=== PATIENT | male | born 1945 | race Caucasian/White ===

== ENCOUNTER 2021-09-09 15:53 | Outpatient (CLI) | payer MEDICARE, SELFPAY ==
[2021-09-09 12:28] LABS: Albumin* 4.1 g/dL (3.3-5.0); Chloride* 103 mmol/L (96-114)
[2021-09-09 12:29] LABS: Potassium* 4.7 mmol/L (3.6-5.1); Sodium* 138 mmol/L (135-149)
[2021-09-09 12:31] LABS: Aspartate Amino Transferase* 20 U/L (12-35); Bilirubin Total* 0.4 mg/dL (0.1-1.5); Blood Urea Nitrogen* 18 mg/dL (7-30); Carbon Dioxide* 29 mmol/L (20-32); Cholesterol* 198 mg/dL (90-199); Creatinine* 0.8 mg/dL (0.5-1.5); Estimated Glomerular Filt Rate 93 ml/min; Glucose* 112 mg/dL (60-115); Total Protein* 6.9 g/dL (6.0-8.3)
[2021-09-09 12:32] LABS: Alanine Aminotransferase* 22 U/L (4-50); Alkaline Phosphatase* 64 U/L (40-150); Calcium* 9.6 mg/dL (8.4-10.6); HDL Cholesterol* 62 mg/dL (>=40); LDL Cholesterol Calculated 117 mg/dL (<100); Triglycerides* 95 mg/dL (40-149)
[2021-09-09 13:00] LABS: PSA Screen* 0.68 ng/mL (0.10-4.00)
== END 2021-09-09 15:54 | disposition home or self-care (01) ==
PROVIDERS: PCP Family Medicine; Visit Provider Family Medicine
DX: Z00.00 Encounter for general adult medical examination without abnormal findings (principal)
CPT/HCPCS: 80053; 80061; 84153

== ENCOUNTER 2022-09-20 09:33 | Outpatient (CLI) | payer MEDICARE, SELFPAY | END 2022-09-20 09:34 | disposition home or self-care (01) | PROVIDERS: PCP Physician Assistant Medical; Visit Provider Physician Assistant Medical | DX: Z01.818 Encounter for other preprocedural examination (principal); E78.5 Hyperlipidemia, unspecified; N39.0 Urinary tract infection, site not specified; Z12.5 Encounter for screening for malignant neoplasm of prostate | CPT/HCPCS: 80053; 80061; 84153; 87086; 87186 ==

== ENCOUNTER 2022-09-26 06:08 | Day surgery (SDC) | payer MEDICARE, SELFPAY ==
[2022-09-26] VITALS (26 sets, daily range): BP systolic 82–135; BP diastolic 53–90; PULSE 60–96; RESP 12–18; TEMP 35.1–36.5; O2SAT 92–96; BMI 36.6
[2022-09-26] MEDS: SODIUM CHLORIDE 0.9 % (FLUSH) 10 ML SYRINGE IVF (07:00)
[2022-09-26] MEDS: ACETAMINOPHEN 500 MG TABLET 1000 MG PO ×3 (07:00→19:30)
[2022-09-26] MEDS: CELECOXIB 200 MG CAPSULE PO (07:00)
[2022-09-26] MEDS: OXYCODONE (CR) 10 MG TAB.ER.12H PO (07:00)
[2022-09-26] MEDS: LACTATED RINGERS 1000 ML 1,000 ML 100 ML IV (07:00)
[2022-09-26] MEDS: MIDAZOLAM HCL 1 MG/ML inj IVP (07:20)
[2022-09-26] MEDS: fentaNYL 100 MCG/2 ML inj IVP (07:20)
--- NOTE | 2022-09-26 07:38 | SUR.PREOP ---
TIME?OUT:?0718 PT/RN/RESIDENTIAL LIVING ASSISTANT?VERIFICATION?OF?SURGICAL?SITE,?PROCEDURE,?AND?CONSENT OBTAINED?PRIOR?TO?INVASIVE?PROCEDURE.
[2022-09-26] MEDS: CEFAZOLIN 2 GM INJ IVP (07:52)
[2022-09-26] MEDS: TRANEXAMIC ACID 100 MG/ML INJ 1000 MG IV (07:53)
--- NOTE | 2022-09-26 09:20 | CRLHL7_ITS ---
For Patients: As a result of the Cures Act, medical imaging exams and procedure reports are released immediately into your electronic medical record. You may view this report before your referring provider. If you have questions, please contact your health care provider. Indication: POSTOP TKA Technique: Two views left knee Findings/Impression: Hardware from a left total knee arthroplasty is in satisfactory position. Bone alignment is normal. No sign of acute fracture. Postop changes are within normal limits. Dictated by Kenney Mccall MD @ 09/26/2022 10:10:44 AM (Electronically Signed)
--- NOTE | 2022-09-26 09:22 | P.ORPRC_ITS ---
Procedure Note Date of procedure: 09/26/22 Procedure: PREOPERATIVE DIAGNOSIS: Left knee osteoarthritis POSTOPERATIVE DIAGNOSIS: Left knee osteoarthritis NAME OF OPERATION: Left total knee arthroplasty SURGEON: Abdiel Dawson MD SALES AND MARKETING DIRECTOR: OVI Gonzalez ANESTHESIA: Spinal ESTIMATED BLOOD LOSS: 0 mL COMPLICATIONS: None SPECIMENS: None DRAINS: None PREOPERATIVE ANTIBIOTICS: Ancef 2 grams IMPLANTS: 1. J&J Attune # 8 posterior stabilized femur 2. # 7 fixed-bearing tibia with a 14 mm x 50 mm cemented stem 3. # 8 posterior stabilized, 7 mm fixed-bearing polyethylene 4. 41 patella INDICATIONS: The patient is a 77-year-old with a longstanding history of severe, unrelenting left knee pain secondary to end-stage (grade IV) left knee osteoarthritis. Despite appropriate nonoperative management, including activity modification, anti-inflammatories, [id number] pain medication, bracing, physical therapy, and injections they continue to have pain and disability. Operative intervention was offered. The risks, benefits and expected outcomes were discussed in detail. These incl uded but were not limited to: Infection, bleeding, injury to blood vessel or nerve, venous thromboembolism. All questions were answered to their satisfaction. Use of an speech language pathology assistant was necessary throughout the case for patient positioning and safety, soft tissue retraction, and closure. PROCEDURE: Spinal anesthesia was administered. The patient was placed supine on the operating table. The speech language pathology assistant made sure the patient was positioned appropriately. The lower extremity was prepped and draped in the usual sterile fashion. The limb was exsanguinated with the Brando bandage. The pneumatic tourniquet was inflated to 300 mmHg. A standard anterior incision was made with the knee in flexion. Subcutaneous dissection was sharply taken through fascial layer #1. Full-thickness medial and lateral flaps were elevated. The speech language pathology assistant retracted the soft tissues and protected them throughout the case. A standard medial parapatellar approach was made. The patella was everted. The infrapatellar fat pad was preserved. The menisci and cruciate ligaments were sharply d?brided. Marginal osteophytes were d?brided with the rongeur. The drill was used to penetrate the femoral canal. The canal was aspirated and irrigated with pulse lavage. The intramedullary femoral guide was placed for a 5-degree valgus cut, removing 12 mm off the distal femur. The saw was used to make the cut. Whitesides line and the trans epicondylar axis were marked. The femoral sizing guide was pinned onto the distal femur. Three degrees of external rotation nicely parallels the transepicondylar axis. Pins were placed for posterior referencing. The four-in-one cutting guide was pinned onto the distal femur. The anterior, posterior, and chamfer cuts were made. The speech language pathology assistant protected the collateral ligaments. The box cutting guide was pinned. The box cuts were made. The boxed trial was placed and was an excellent fit. Drill holes for the lugs were made. Attention was then turned to the proximal tibia. The extramedullary tibial guide was placed for a neutral varus/valgus cut with 5 degrees of posterior slope, removing 2 mm based off the medial tibial surface. The speech language pathology assistant protected the collateral ligaments and the neurovascular bundle. The saw was used to make the cut. Trial components were placed. The knee was nicely balanced in both flexion and extension. The trial components were removed. The tray was placed in appropriate rotation, parallel to our tibial cutting pins. It was pinned by the speech language pathology assistant and the drill and the punch were used. The tray was removed. The punch was used again. We placed a bone plug in the femoral canal. Attention was then turned to the patella. [place] patellar thickness was 25 mm. The lobster claw resection guide was used with the 9.5 mm gabriel. The saw was used to make the cut. Drill holes were made by the speech language pathology assistant. The trial was placed and was an excellent fit. Cancellous surfaces were irrigated with pulse lavage and thoroughly dried by the speech language pathology assistant. We cemented the tibial component, then the femoral component. We impacted the 7 mm polyethylene onto the tibial tray. The knee was brought into full extension. We then cemented the patellar component. Excessive cement was removed. The cement was allowed to harden. The knee was taken through a range of motion and was found to be nicely balanced in both flexion and extension. The patella tracks centrally. The speech language pathology assistant did a three minute dilute Betadine solution soak. The speech language pathology assistant irrigated the wound with 3 liters of normal saline via pulse lavage. The speech language pathology assistant reapproximated the extensor mechanism with #1 Vicryl in an interrupted [id number] fashion. The speech language pathology assistant then ran the extensor mechanism with a #1 PDO Stratafix. The speech language pathology assistant closed the subcutaneous tissues with a 3-0 Stratafix and the skin with a running 3-0 Stratafix in a subcuticular fashion. Glue was used to seal the skin. The speech language pathology assistant placed a dry dressing, MELA stocking, and Polar Care. Sponge and needle counts were correct x2. The patient tolerated the procedure well. There were no apparent complications. They were carefully transferred to the hospital bed and taken to the postanesthesia care unit in satisfactory condition. PLAN: The patient will be mobilized with physical therapy. Aspirin will be used for DVT prophylaxis. They will be discharged to home once medically appropriate.
--- NOTE | 2022-09-26 10:08 | W.ANESCHARGE ---
Anesthesia Charges Start Date/Time Anesthesia Start Date: 09/26/22 Anesthesia Start Time: 07:40 Stop Date/Time Anesthesia Stop Date: 09/26/22 Anesthesia Stop Time: 09:55
--- NOTE | 2022-09-26 10:29 | PC.NURSE ---
CATARINA Frank notified. Monika approved discharge from PACU with patient being asymptomatic and having low blood pressures. Meets protocol for discharge.
--- NOTE | 2022-09-26 10:41 | SUR.PHASEI ---
Reported to MESH WORKER to continue to have patient flat due to lower blood pressures that was recommended by Anesthesia. RN stated understanding.
[2022-09-26] MEDS: LACTATED RINGERS 1000 ML 1,000 ML 75 ML IV (10:52)
--- NOTE | 2022-09-26 11:08 | P.IMCN_ITS ---
Date of Consult Patient: [facility] Patient Consult date: 09/26/22 Primary Care Provider: Chester Schumacher PA-C Consult Narrative Reason for consult: Medical management of comorbidities Narrative: Rodri Kirkland is a 77 year old male who presented to the hospital today for an elective L TKA with Dr. Dawson. There were no surgical or anesthetic complications noted during procedure. Patient's H&P reviewed, PCP is Chester Schumacher. Gene had been fishing in [place] just prior to his preoperative visit Past medical history significant for: bladder cancer, hyperlipidemia, recurrent UTIs. History of blood clots: No. History of blood transfusions: No. Postoperative plan: Home with . This is his third total joint. Former smoker, social ETOH without any history of withdrawal. Review of Systems Status of ROS: Reports: 10 or more systems reviewed and unremarkable except as noted in History and below [facility] Medical History (Updated 09/26/22 @ 11:22 by Libby Salamanca MD) Urinary tract infection ?N39.0 - Urinary tract infection, site not specified (ICD-10) History of osteomyelitis ?Z87.39 - Personal history of other diseases of the musculoskeletal system and connective tissue (ICD-10) History of malignant neoplasm of bladder ?Z85.51 - Personal history of malignant neoplasm of bladder (ICD-10) Surgical History (Updated 09/26/22 @ 11:22 by Libby Salamanca MD) 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) ?Z96.651 - Presence of right artificial knee joint (ICD-10) History of total left hip replacement (~03/2006) ?Z96.642 - Presence of left artificial hip joint (ICD-10) History of bladder surgery (~2003) ?Z98.890 - Other specified postprocedural states (ICD-10) Family History (Updated 09/12/22 @ 13:25 by Christina Michel RN) Father Cardiovascular disease Mother High blood pressure Diabetes Hypothyroidism Sister Deep vein thrombosis Social History (Reviewed 07/19/22 @ 10:40 by Keily Curtis ~ [facility], [facility]) Narrative: does not use illicit drugs former smoker occasional alcohol consumption Highest level of school completed/degree received: some college, no degree Smoking Status: Former smoker Do you use any of these nicotine containing products: None Second hand tobacco smoke exposure: No How often do you have a drink containing alcohol: 4 or more times a week Alcohol type: beer, wine and hard liquor How many standard drinks containing alcohol do you have on a typical day: 1 or 2 How often do you have six or more drinks on one occasion: Less than monthly AUDIT-C Alcohol total score: 5 Non-prescribed substance use: denies use Caffeine: Yes (coffee, 6 cups/day) Little interest or pleasure in doing things: not at all Feeling down, depressed, or hopeless: not at all service: Yes Meds Home Medications and Allergies Home Medications Medication Instructions Recorded Confirmed Type amoxicillin 500 mg capsule 2,000 mg PO ONCE PRN 09/12/21 09/26/22 History aspirin 81 mg chewable tablet 81 mg PO DAILY 09/12/21 09/26/22 History calcium carbonate 600 mg-vitamin 1 tab PO DAILY 09/12/21 09/26/22 History D3 10 mcg (400 unit) chewable tablet (Calcium 600 with Vitamin D3) cranberry 500 mg capsule 500 mg PO BID 09/12/21 09/26/22 History multivitamin 1 tab PO QAM 09/12/21 09/26/22 History sildenafil 100 mg tablet 100 mg PO DAILY PRN 09/12/21 09/26/22 History turmeric 400 mg capsule 400 mg PO DAILY 07/19/22 09/26/22 History simvastatin 20 mg tablet 20 mg PO HS 09/26/22 09/26/22 History Allergies Allergy/AdvReac Type Severity Reaction Status Date / Time No Known Drug Allergies Allergy Verified 09/26/22 06:27 Exam Narrative: Exam Narrative: GEN: Alert and laying comfortably in bed, nontoxic HEENT: EOMIs bilaterally, no scleral icterus CV: RRR, No concerning murmurs R: LCTA bilaterally without concerning wheezing, air movement adequate Ext: wwp, no concerning edema Skin: No concerning skin lesions or rashes on exposed skin Neuro: Nonfocal Psych: Appropriate Const: Vital Signs, click to edit/add: Vital Signs - 24 hr 09/26/22 06:51 09/26/22 07:20 09/26/22 07:25 Temperature 97.7 F Pulse Rate 79 77 73 Respiratory Rate 16 16 16 Blood Pressure 119/80 135/81 112/90 H Pulse Oximetry 93 95 93 Oxygen Delivery Me thod Room Air Nasal Cannula Nasal Cannula Oxygen Flow Rate 3 3 09/26/22 07:30 09/26/22 07:35 09/26/22 09:51 Temperature 97.1 F L Pulse Rate 66 68 71 Respiratory Rate 16 16 16 Blood Pressure 105/81 106/81 88/58 L Pulse Oximetry 93 94 93 Oxygen Delivery Me thod Nasal Cannula Nasal Cannula Room Air Oxygen Flow Rate 3 3 09/26/22 09:55 09/26/22 10:00 09/26/22 10:05 Temperature Pulse Rate 68 67 68 Respiratory Rate 16 16 16 Blood Pressure 96/55 L 96/59 L 95/53 L Pulse Oximetry 92 94 93 Oxygen Delivery Me thod Room Air Oxygen Flow Rate 09/26/22 10:10 09/26/22 10:15 09/26/22 10:20 Temperature 97 F L Pulse Rate 69 60 60 Respiratory Rate 16 12 12 Blood Pressure 90/62 91/57 L 82/56 L Pulse Oximetry 92 96 95 Oxygen Delivery Me thod Oxygen Flow Rate 09/26/22 10:25 Temperature 97 F L Pulse Rate 64 Respiratory Rate 12 Blood Pressure 95/67 Pulse Oximetry 93 Oxygen Delivery Me thod Room Air Oxygen Flow Rate Assessment and Plan Assessment and plan (1) Status post left knee replacement: Problem comment: - Dr. Dawson, 09/26 Status: Acute (2) History of malignant neoplasm of bladder: Problem comment: - quiescent, no longer follows with urology as an outpatient Status: Acute (3) Hyperlipidemia: Status: Acute (4) Urinary tract infection: Problem comment: - noted during preoperative visit, cx + for Enterococcus - on Cipro with f/u UA ordered by PCP Status: Acute Plan - pain management and prophylaxis per orthopedic surgery team - continue home medications for comorbidities - anticipate routine postoperative course
[2022-09-26] MEDS: CEFAZOLIN 2 GM in 0.9 % SODIUM CHLORIDE Mini-bag 100 ML IVPB ×2 (14:01→21:45)
--- NOTE | 2022-09-26 14:56 | PC.NURSE ---
End of shift... Arrived to the floor at 1035 this AM. Very pleasant gentleman. Slightly hypotensive upon arrival per him and his his BP's are usually soft. LTK dressing CDI no drainage present with minor swelling, cyrocuff to knee. B TEDs on and plexipulses. He got up with OT and did well. Feeling has returned, he reports it as uncomfortable, not really painful. Scheduled tylenol and ABX given. LR running at 75/hr. Tolerating food and fluids with no nausea. He has not voided yet. VS on RA. Will call appropriately.
[2022-09-26] MEDS: CIPROFLOXACIN 500 MG TABLET PO (21:44)
[2022-09-26] MEDS: ASPIRIN 81 MG TABLET EC PO (21:44)
[2022-09-26] MEDS: SENNOSIDES 1 TAB TABLET 2 TAB PO (21:44)
[2022-09-26] MEDS: SIMVASTATIN 20 MG TABLET PO (21:44)
--- NOTE | 2022-09-26 22:44 | PC.NURSE ---
End of Shift: Pt AO, pleasant and cooperative throughout shift. Denies pain, reports some discomfort with movement, well-controlled with scheduled tylenol. Pt tolerating regular diet well, saline locked. IV intact and patent. VS stable. Ambulating with walker, gait belt and SBA, tolerating well. Continent with bladder, no BM during shift.
[2022-09-27 00:15] VITALS: PULSE 83; RESP 18; O2SAT 92
[2022-09-27] MEDS: ACETAMINOPHEN 500 MG TABLET 1000 MG PO ×2 (00:24→07:18)
[2022-09-27] MEDS: OXYCODONE 5 MG TABLET PO (00:24)
[2022-09-27 01:15] VITALS: BP 126/77; PULSE 83; RESP 16; TEMP 36.6; O2SAT 92
[2022-09-27 04:10] VITALS: BP 103/73; PULSE 65; RESP 14; TEMP 36.6; O2SAT 92
[2022-09-27 06:40] LABS: Hematocrit 42.2 % (37.0-53.0); Hemoglobin* 13.8 gm/dL (13.5-17.5); Immature Granulocytes Abs Auto 0.01 K/uL (0.00-0.30); Immature Granulocytes Pct Auto 0.1 %; Lymphocytes Percent Auto 12.1 % (20-44); Mean Corpuscular HGB Conc 33 gm/dL (32-36); Mean Corpuscular Hemoglobin 31 pg (26-34); Mean Corpuscular Volume 95 fL (80-100); Monocytes Percent Auto 10.5 % (0.0-11.0); Neutrophils Percent Auto 77.3 % (42.0-72.0); Platelet Count* 205 K/uL (140-440); RDW Coefficient of Variation % 13.3 % (11.5-15.5); Red Blood Count 4.45 m/uL (4.30-5.90); White Blood Count* 10.01 K/uL (4.50-11.00)
[2022-09-27 06:41] LABS: Slide Review Reflex No
[2022-09-27 07:08] LABS: INR 0.96 (0.91-1.10); Prothrombin Time 13.4 Seconds; Sodium* 136 mmol/L (135-149)
[2022-09-27 07:09] LABS: Potassium* 4.6 mmol/L (3.6-5.1)
[2022-09-27 07:11] LABS: Creatinine* 0.7 mg/dL (0.5-1.5); Est. Creatinine Clearance* 61.75; Estimated Glomerular Filt Rate 96 ml/min
[2022-09-27 07:12] LABS: Blood Urea Nitrogen* 14 mg/dL (7-30)
[2022-09-27 09:00] VITALS: BP 128/78; PULSE 69; RESP 16; TEMP 36.2; O2SAT 97
[2022-09-27] MEDS: SENNOSIDES 1 TAB TABLET 2 TAB PO (09:06)
[2022-09-27] MEDS: CIPROFLOXACIN 500 MG TABLET PO (09:06)
[2022-09-27] MEDS: ASPIRIN 81 MG TABLET EC PO (09:06)
--- NOTE | 2022-09-27 09:10 | PM.ORPN ---
Subjective Subjective Time Seen by Provider: 07:30 Date Seen: 09/27/22 Principal diagnosis: Status post left knee replacement 09/26/2022 Interval history: Gene is comfortable this morning. He will discharge to home today. Ortho Exam Narrative Exam Narrative: Alert and oriented x3. Patient is in no acute distress. Converses without labored breathing. Hearing is grossly intact. Ambulates with a walker. Examination of the left lower extremity shows the dressing is intact. Mild effusion. Mild soft tissue edema. No erythema. No warmth. No sign of infection. Bilateral calves are soft and nontender. Quad strength 5/5. CMS is intact lower extremity Const Vital Signs, click to edit/add: Vital Signs - 24 hr 09/26/22 09:51 09/26/22 09:55 09/26/22 10:00 Temperature 97.1 F L Pulse Rate 71 68 67 Pulse Rate [Left Pulse Oximeter] Respiratory Rate 16 16 16 Blood Pressure 88/58 L 96/55 L 96/59 L Blood Pressure [Right Arm] Pulse Oximetry 93 92 94 Oxygen Delivery Method Room Air 09/26/22 10:05 09/26/22 10:10 09/26/22 10:15 Temperature 97 F L Pulse Rate 68 69 60 Pulse Rate [Left Pulse Oximeter] Respiratory Rate 16 16 12 Blood Pressure 95/53 L 90/62 91/57 L Blood Pressure [Right Arm] Pulse Oximetry 93 92 96 Oxygen Delivery Method Room Air 09/26/22 10:20 09/26/22 10:25 09/26/22 10:35 Temperature 97 F L 95.2 F L Pulse Rate 60 64 Pulse Rate [Left Pulse Oximeter] 67 Respiratory Rate 12 12 16 Blood Pressure 82/56 L 95/67 Blood Pressure [Right Arm] 94/65 Pulse Oximetry 95 93 92 Oxygen Delivery Method Room Air 09/26/22 10:50 09/26/22 11:05 09/26/22 11:20 Temperature 95.3 F L 95.2 F L 96 F L Pulse Rate Pulse Rate [Left Pulse Oximeter] 66 65 68 Respiratory Rate 14 14 14 Blood Pressure Blood Pressure [Right Arm] 93/69 97/70 95/70 Pulse Oximetry 92 93 93 Oxygen Delivery Method Room Air Room Air Room Air 09/26/22 11:35 09/26/22 12:05 09/26/22 12:35 Temperature 96 F L 96 F L 97 F L Pulse Rate Pulse Rate [Left Pulse Oximeter] 70 70 73 Respiratory Rate 14 16 14 Blood Pressure Blood Pressure [Right Arm] 103/83 112/77 130/80 Pulse Oximetry 94 93 93 Oxygen Delivery Method Room Air Room Air Room Air 09/26/22 13:35 09/26/22 14:35 09/26/22 15:00 Temperature 97 F L 96.9 F L Pulse Rate Pulse Rate [Left Pulse Oximeter] 83 85 Respiratory Rate 16 18 Blood Pressure Blood Pressure [Right Arm] 132/82 132/87 Pulse Oximetry 93 92 92 Oxygen Delivery Method Room Air Room Air 09/26/22 15:35 09/26/22 16:35 09/26/22 19:00 Temperature 96.7 F L 97.1 F L 97.1 F L Pulse Rate Pulse Rate [Left Pulse Oximeter] 96 91 91 Respiratory Rate 18 18 18 Blood Pressure Blood Pressure [Right Arm] 123/80 118/80 123/83 Pulse Oximetry 92 92 92 Oxygen Delivery Method Room Air Room Air Room Air 09/27/22 00:15 09/27/22 00:15 09/27/22 01:15 Temperature 97.9 F Pulse Rate Pulse Rate [Left Pulse Oximeter] 83 83 Respiratory Rate 18 16 Blood Pressure Blood Pressure [Right Arm] 126/77 Pulse Oximetry 92 92 Oxygen Delivery Method Room Air 09/27/22 04:10 Temperature 97.9 F Pulse Rate Pulse Rate [Left Pulse Oximeter] 65 Respiratory Rate 14 Blood Pressure Blood Pressure [Right Arm] 103/73 Pulse Oximetry 92 Oxygen Delivery Method Room Air Assessment and Plan Assessment and plan (1) Status post left knee replacement: Problem details: - Dr. Dawson, 09/26 Status: Acute Assessment and Plan: Plan for discharge is today to home if they meet discharge criteria. DVT prophylaxis includes aspirin 81 mg twice daily x1 month, Aldo stockings x1 month may remove for 1 hr per day, frequent ambulation Remove dressing in 1 week. Observe wound and phone Orthopedics with any questions or concerns Return to clinic in 1 week for a wound check Return to clinic in 6 weeks with surgeon Minimize narcotic use. Wean off and discontinue soon as possible. Activities as tolerated. No strenuous activity. Outpatient physical therapy as scheduled. Ice and elevate the operative extremity. No restriction on ice. (2) History of malignant neoplasm of bladder: Problem details: - quiescent, no longer follows with urology as an outpatient Status: Acute (3) Hyperlipidemia: Status: Acute (4) Urinary tract infection: Problem details: - noted during preoperative visit, cx + for Enterococcus - on Cipro with f/u UA ordered by PCP Status: Acute
--- NOTE | 2022-09-27 09:34 | PC.SOCIAL ---
Discharge Planning: Met with patient, Gene, spouse and granddaughter. will be caring for him at home and states that she has also had knee surgeries. Gene states that this is his second knee surgery. Gene feels confident about going home with help from spouse. No questions or concerns. Social work to follow up as needed.
--- NOTE | 2022-09-27 12:30 | PC.NURSE ---
Discharge note: A&Ox3 post LTK replacement- dressing is CDI, with no drainage present, ambulates well with front wheel walker. VSS, no nausea. Voided 900cc this AM. Rating pain @ 3/10 upon discharge but more of a stiffness/ache then severe pain. Discharge paper work was reviewed and he was educated on post op care as well as proper movement, pain management, and worsening signs and symptoms to contact the ortho clinic. Discharged home with and granddaughter @ 1140
--- NOTE | 2022-10-05 09:33 | P.NB_ITS ---
Nerve Block Nerve Block Time Seen by Provider: 07:30 Date Seen: 09/26/22 Type of block requested by surgeon for post-operative analgesia: adductor canal Side: left Time out performed: Yes Verification of patient name: Yes Verification of date of : Yes Site marking: site marked Name of person performing procedure: brionna Continuous monitoring Was continuous monitoring of O2 sat, B/P, diagnostic cardiac sonographer, recorded every 15 minutes?: Yes Procedure Checklist: sterile prep and needles Ultrasound guided. Images saved: Yes Medications given in 5ml increments after negative aspiration: Ropivicaine %: 0.5 mL: 20 Needle gauge: 20 Decadron (mg): 10 Precedex (mcg): 25 Patient tolerated procedure well: Yes Block Charges Block Charge (with Pro Fee): Femoral Nerve Use of Ultrasound Machine for Block: Yes- US Guidance/pain block
--- NOTE | 2022-10-05 09:35 | W.PM.NB ---
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 Images saved: Yes Medications given in 5ml increments after negative aspiration: Ropivicaine %: 0.5 mL: 12 Needle gauge: 25 Patient tolerated procedure well: Yes Block Charges Block Charge (with Pro Fee): Genicular Nerve Block Use of Ultrasound Machine for Block: No
== END 2022-09-27 11:40 | disposition home or self-care (01) ==
LOC: OR 06:09 → MEDSURG 06:12
PROVIDERS: PCP Physician Assistant Medical; Visit Provider Orthopaedic Surgery
PROC: (CPT 27447; principal; 2022-09-26 07:45)
DX: M17.12 Unilateral primary osteoarthritis, left knee (principal); G89.18 Other acute postprocedural pain; N39.0 Urinary tract infection, site not specified; B95.2 Enterococcus as the cause of diseases classified elsewhere; E78.5 Hyperlipidemia, unspecified; Z85.51 Personal history of malignant neoplasm of bladder
CPT/HCPCS: 27447; 01402; 36415; 64447; 64454; 73560; 76942; 82565; 84132; 84295; 84520; 85025; 85610; 97110; 97116; 97161; 97165; 97535; A9270; C1776; J0690; J1100; J2250; J2371; J2405; J2704; J2795; J3010; J7120

== ENCOUNTER 2022-10-04 10:19 | Outpatient (CLI) | payer MEDICARE, SELFPAY | END 2022-10-04 10:20 | disposition home or self-care (01) | LOC: NFLDREF 10-05 08:29 | PROVIDERS: PCP Physician Assistant Medical; Referring Provider Physician Assistant Medical; Visit Provider Physician Assistant Medical | DX: N39.0 Urinary tract infection, site not specified (principal) | CPT/HCPCS: 87086 ==

== ENCOUNTER 2022-11-23 09:45 | Outpatient (RCR) | payer MEDICARE, SELFPAY ==
--- NOTE | 2022-10-02 10:21 | PT.OPE ---
PT [facility] Outpatient Eval PT [facility] Outpatient Eval Start: 10/02/22 09:04 Freq: Status: Active Protocol: Document 10/02/22 09:04 LSL (Rec: 10/02/22 10:17 LSL [id number]) E-signed By Majo Srinivasan PT Physical Therapy Outpatient Evaluation Insurance Information Recert Due Date 12/29/22 Insurance Name Medicare B,Blue Cross/Blue Shield Medical Diagnosis s/p L TKA Treating Diagnosis pain, weakness, impaired gait, impaired balance, impaired ROM edema Referring MD Dawson Subjective Subjective Pt reports he hasn't been taking his pain medication like he should and he feels that was a mistake. Pt. had onset of R lateral hip/thigh pain about a month into his rehab last time. He reports he has pain through the anterior knee and most pain is in the proximal thigh. reports he hollers when he moves it and he states I just can't lift my foot. Using leg head silverman to get leg in bed. Pt. has been doing HEP. Patient wants to be able to walk, bike and white and fish. Plan to leave for [place] sometime in January. Maybe play pickle ball. PMH - 2018 R TKA Pain Comments 3/10 best, 8/10 worst and sometimes 10/10. Date of Last Physician Visit 09/27/22 Date of Surgery (If applicable) 09/26/22 Current Work Status Retired Preferred Name Gene Precautions Treatment Precautions/Contraindications Bladder cancer 2004 - clear Weight Bearing Status Weight Bear as Tolerated Objective Range of Motion AROM R knee 2/0/123 L knee 0/10 /80 PROM L knee 0/5/95 Strength R knee 5/5, L quad 2-/5, HS 4+ /5 Swelling MEASUREMENTS L R 6 above MP 58 cm 54 cm 2 above MP 52.5 cm 47.25 cm joint line 45 cm 40.75 cm 6 below MP 40.5 cm 38.75 cm Balance & Gait decreased stance on L in gait with WW Posture Inspection - ecchymosis around thigh where tourniquet was into posterior knee and proximal calf Assessment Assessment/Impression Pt. is a 77 y/o male who presents 1 week s/p L TKA with expected post operative edema and ecchymosis which are contributing to inhibition of his quads. He has been trying to avoid taking pain medications but is finding he is really struggling, so he was encouraged to utilize them more consistently through his third week post op. He will do well with a program of manual therapy for swelling and pain management, therex, NM re-ed and gait training to restore strength, balance and ability to ambulate. Primary Functional Limitations walking, stairs, bending and straightening knee Plan of Care Rehabilitation Potential Excellent Physical Therapy Goals SHORT TERM GOALS: (2-3 weeks) 1. Decreased edema and ecchymosis throughout thigh to assist in quad contraction so able to independently lift and extend L knee. 2. Pt. to have 3/5 or greater quad strength and able to assess hip. 3. Pt. able to ambulate with SPC for 50 ft. for household ambulation GROUP HOME GOALS: (4+ weeks) 1. Pt. to have 5/5 quad strength to improve stability in gait. 2. Pt. able to ambulate independently for 15' for community ambulation. 3. Pt. able to reciprocally descend and ascend a flight of stairs. 4. Improved ability to balance to 15 seconds on unstable surface so proprioception is improved for fishing and hunting tasks. Coordination/Communication With Referral Source Treatment Plan/Direct Interventions Ice/Cold/Vasopneumatic,Joint Mobilization,Manual Therapy, Neuromuscular Re-ed,Self-Care/ Home Management,Therapeutic Exercises Frequency/Duration 2x/week 6 weeks Patient Will Be Discharged From Therapy Completion of LTG(s),Skills Plateau,Independent w/HEP, Independently Progressing Evaluation Billing Untimed Code Treatment Minutes 38 Complexity Low Certification Information Initial Certification Date 10/02/22 Ending Certification Date 12/29/22 Provider Signature Shows Agreement With POC & Medical Necessity Physician Signature & Date Requested Please Sign/Date Here Physician Comment/Change : Physician NPI Number #
== END 2023-01-01 17:20 | disposition home or self-care (01) ==
PROVIDERS: PCP Physician Assistant Medical; Visit Provider Orthopaedic Surgery
DX: Z96.652 Presence of left artificial knee joint (principal); Z51.89 Encounter for other specified aftercare
CPT/HCPCS: 97110; 97112; 97116; 97140; 97161

== ENCOUNTER 2023-07-24 07:00 | Outpatient (CLI) | payer MEDICARE, SELFPAY ==
--- OUTSIDE RECORDS SUMMARY | 2023-07-24 07:02 | XMS_ITS | Continuity of Care Document ---
Author Name [facility] Organization [facility] Care Team Providers Care Marble Coper Name Role Phone [facility] Unavailable Unavailable Problems Combined list of problems from Department of Defense and Veterans Affairs facilities. It does not include entries that were removed or entered in error. Problem Status Onset Date Problem Type Date of Resolution Comments Source Chronic back pain Active Condition [facility] Decreased hearing Active Condition [facility] Family social history Active Condition Jan 02, 2022 Entered By: DK WADE Comment: Family historyJan 02, 2022 Entered By: DK WADE Comment: Dad-CAD, mom hypertension, 1 son healthyJan 02, 2022 Entered By: DK WADE Comment: Social historyJan 02, 2022 Entered By: DK WADE Comment: Tobacco-never smokedJan 02, 2022 Entered By: DK WADE Comment: Alcohol-socia lNov 2021 Entered By: DK WADE Comment: , [place] 1 [place] Entered By: DK WADE Comment: 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, 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 [facility] History of malignant neoplasm of bladder Active Condition [facility] History of osteomyelitis Active [facility] History of right total knee replacement Active Condition [facility] History of SARS-CoV-2 Active Condition [facility] History of total hip arthroplasty Active Condition Oct 19 Entered By: CARLOS HOUSTON I Comment: LeftDec 27, 2022 Entered By: DK WADE Comment: bl- TKA [facility] Hyperlipidemia (SCT [id number]) Active Condition [facility] Diagnosis: ICD-10-CM Z00.00 Encntr for general adult medical exam w/o abnormal findings Active Diagnosis [facility] Diagnosis: ICD-10-CM Z46.1 Encounter for fitting and adjustment of hearing aid Active Diagnosis [facility] Medications Combined list of outpatient medications from Department of Defense and Veterans Affairs facilities.Medications provided include 1) outpatient medications from the last 15 months, and 2) patient-reported medications. Medication Details Route Status Patient Instructions Prescription Expires Prescription Number Last Dispense Date Ordering Provider Order Date Order Qty Source ALBUTEROL 90MCG/ACTUA T (CFC-F) INHL,ORAL,8 .5GM DOSE COUNTER INHALE 1 PUFF BY INHALATI ON EVERY 6 HOURS NEEDED INHALA TION ACTIVE ROSEMARIE,RHO NDA I 2020 [facility] ASPIRIN 81MG TAB,CHEWABL E CHEW ONE TABLET BY MOUTH EVERY DAY ORALLY ACTIVE ROSEMARIE,RHO NDA I 2020 [facility] CALCIUM CARBONATE TAB TAKE WITH VITAMIN D 400UNIT BY MOUTH EVERY DAY ORALLY ACTIVE ROSEMARIE,RHO NDA I 2020 [facility] CRANBERRY EXTRACT CAP/TAB TAKE 1 CAPSULE BY MOUTH EVERY DAY ORALLY ACTIVE ROSEMARIE,RHO NDA I 2020 [facility] MULTIVITAMI NS CAP/TAB TAKE ONE TABLET BY MOUTH EVERY DAY ORALLY ACTIVE ROSEMARIE,RHO NDA I 2020 [facility] SILDENAFIL CITRATE 100MG TAB TAKE ONE TABLET BY MOUTH EVERY DAY NEEDED ORALLY ACTIVE ROSEMARIE,RHO NDA I 2020 [facility] SIMVASTATIN 40MG TAB TAKE ONE-HALF TABLET BY MOUTH AT BEDTIME ORALLY ACTIVE ROSEMARIE,RHO NDA I 2020 [facility] Immunizations Combined list of available immunizations from the Department of Defense and Veterans Affairs facilities. Immunization Series Date Given Administered By Site Reaction Lot Number CVX Code Drug Senior It Business Analyst Status Comments Source COVID-19 (Zientia), MRNA, LNP-S, PF, JAVIER-SUCROSE, 30 MCG/0.3 ML (AGES 12+ YEARS) 1 2022 GEBREHILLARYS, ABDIAS E RIGHT DELTO ID [id number] complet ed [facility] INFLUENZA, HIGH-DOSE, QUADRIVALENT 2022 GEBREKIRSTOS, ABDIAS E RIGHT DELTO ID [id number] 197 complet ed [facility] COVID-19 (PFIZER), MRNA, LNP-S, BIVALENT BOOSTER, PF, 30 MCG/0.3 ML DOSE 1 2021 300 complet ed [facility] INFLUENZA, UNSPECIFIED FORMULATION 2021 88 complet ed [facility] COVID-19 (PFIZER), MRNA, LNP-S, PF, 30 MCG/0.3 ML DOSE, JAVIER-SUCROSE (AGES 12+ YEARS) 2 2021 217 complet ed [facility] COVID-19 (PFIZER), MRNA, LNP-S, PF, 30 MCG/0.3 ML DOSE 1 2020 208 complet ed [facility] ZOSTER RECOMBINANT 2 2020 187 complet ed [facility] ZOSTER RECOMBINANT 1 2020 187 complet ed [facility] INFLUENZA, UNSPECIFIED FORMULATION 2019 88 complet ed [facility] ZOSTER RECOMBINANT 1 2018 187 complet ed [facility] PNEUMOCOCCAL POLYSACCHARID E PPV23 2017 33 complet ed [facility] PNEUMOCOCCAL CONJUGATE PCV 13 2015 133 complet ed [facility] TD(ADULT) UNSPECIFIED FORMULATION 2015 139 complet ed [facility] Vital Signs Combined list of inpatient and outpatient Vital Signs from Department of Defense and Veterans Affairs, ranging from 12 months to all on record, depending upon the facility. Vital Sign Value Date Comments Source Encounters Combined list of: 1) Encounters from Department of Veterans Affairs facilities going back up to thelast 18 months. 2) Encounters from the Department of [facility] facilities going back up to 280 months. Location Location Details Encounter Type Encounter Number Reason For Visit Attending Provider ADM Date DC Date Status Disposition Source [facility] Outpatient Encounter [id number] JOANNE CHU 12/29 [facility] Outpatient Encounter [id number] Diagnos is: ICD-10- CM Z00.00 Encntr for general adult medical exam w/o abnorma l finding s
NALLUSAMY, VASUMATHI 01/02 [facility] [place] [facility] Outpatient Encounter [id number] JOANNE CHU 01/02 [facility] [place] [facility] Outpatient Encounter [id number] [facility] HEARING AID CHECK BOTH EARS [id number] Diagnos is: ICD-10- CM Z46.1 Encount er for fitting and adjustm ent of hearing aid<br/ > SAUMYA GALICIA RTHA R 01/26 [facility] ADMN SARSCOV2 VACC 1 DOSE [id number] Diagnos is: ICD-10- CM Z00.00 Encntr for general adult medical exam w/o abnorma l finding s
SHERI, LIZETTHI 12/27 [facility] Social History Combined list of available smoking, tobacco, and other social history from Department of Defense and Veterans Affairs facilities. Social History Type Response Date Comment Sourc e Tobacco smoking status [facility]BACCO FORMER USER 12[facility]2022 [facility] of [facility] History of tobacco use ID-TOBACCO FORMER USER 12/29/2021 [facility] History of tobacco use ID-TOBACCO FORMER USER 10/19/2020 [facility]
--- OUTSIDE RECORDS SUMMARY | 2023-07-24 07:03 | XMS_ITS | Clinical Summary ---
Author Organization [facility] Address [address] [place] [address] Care Team Providers Care Metal Crafts Teacher Name Role Phone Unavailable Primary Care Provider Unavailabl e Source Comments You are receiving this document as you are listed as the primary care provider,follow-up provider, or the patient has been referred to you for consultation.This is in compliance with the Medicare andMedicaid EHR Incentive Program,which states Providers who transition their patient to another setting of careor provider of care or refers their patient to another provider of care shouldprovide summary care record for each transition of care or referral. [facility] Social History Tobacco Use Types Packs/Day Years Used Date Smoking Tobacco: Never Assessed Sex and Gender Information Value Date Recorded Sex Assigned at Not on file Gender Identity Not on file Sexual Orientation Not on file Plan of Treatment Health Maintenance Due Date Last Done Comments Hep C Screening (Preventive Services) 1945 Adult Preventive Visit 04/26/1965 DTaP/Tdap/Td (1 - Tdap) 04/26/1966 Zoster/Shingles (1 of 2) 04/26/1997 Pneumococcal 65+ Yrs (1 - PCV) 04/26/2012 COVID-19 Vaccine ( - 2022-2 4 season) 2022 Influenza (Season Ended) 2023 HepA Aged Out No longer eligi ble based on patient's age to complete this topic HepB Aged Out No longer eligi ble based on patient's age to complete this topic Hib Aged Out No longer eligi ble based on patient's age to complete this topic IPV (Polio) Aged Out No longer eligi ble based on patient's age to complete this topic MCV4 Aged Out No longer eligi ble based on patient's age to complete this topic
--- OUTSIDE RECORDS SUMMARY | 2023-07-24 07:03 | XMS_ITS | Clinical Summary ---
Author Organization [facility] Address [place], [place] [address] Care Team Providers Care Tool Grinding Machine Operator Name Role Phone Robby Noel MD Primary Care Provider Allergies No known active allergies Medications Medication Sig Dispensed Refills Start Date End Date Status ASPIRIN 81 MG TAB, DELAYED RELEASE 1-2 tabs once a day. 0 04/24/2008 Active simvastatin (ZOCOR) 20 mg tablet Take 1 tablet by mouth at bedtime. 0 02/09/2010 Active Active Problems Problem Noted Date Diagnosed Date PAD (peripheral artery disease) 03/10/2009 Social History Tobacco Use Types Packs/Day Years Used Date Smoking Tobacco: Former Cigarettes 0 04/24/1964 - 04/24/2004 Alcohol Use Standard Drinks/Week Comments Yes 0 (1 standard drink = 0.6 oz pur e alcohol) Sex and Gender Information Value Date Recorded Sex Assigned at Not on file Gender Identity Not on file Sexual Orientation Not on file Obstetrics History Last Filed Vital Signs Vital Sign Reading Time Taken Comments Blood Pressure 114/72 02/09/2010 10:47 AM TRAFFIC SUPERVISOR Pulse 58 02/09/2010 10:47 AM TRAFFIC SUPERVISOR Temperature - - Respiratory Rate - - Oxygen Saturation - - Inhaled Oxygen Concentration - - Weight 110.2 kg (243 lb) 04/24/2008 9:23 AM TRAFFIC SUPERVISOR Height 177.8 cm (5' 10) 04/24/2008 9:23 AM TRAFFIC SUPERVISOR Body Mass Index 34.87 04/24/2008 9:23 AM TRAFFIC SUPERVISOR Plan of Treatment Health Maintenance Due Date Last Done Comments Tdap 04/26/1958 Depression screening for age 12+ 1959 BMI (ht and wt on same day) for age 18+ 04/26/1965 Hepatitis C screening for age 18-79 04/26/1965 Tetanus booster 1967 Zoster (shingles) series for age 50+ (1 of 2) 04/26/18 98 Pneumococcal series for age 65+ (1 of 1 - PCV) 013 COVID-19 vaccine series ( - 2022-24 season) 3 Influenza for age 65+ 10/21/2023 Care Teams Tool Grinding Machine Operator Relationship Specialty Start Date End Date Robby Noel MD PCP - General 03/19/08
--- OUTSIDE RECORDS SUMMARY | 2023-07-24 07:03 | XMS_ITS | Continuity of Care Document ---
Author Organization [facility] Address [address] [address] [place] [address] Phone Care Team Providers Care Driller Multiple Spindle Name Role Phone Marely Yoder CRNA Unavailable Unavailable Allergies, Adverse Reactions, Alerts Substance Reaction Status Criticality No Known allergies Medications Medication Instructions Dosage Effective Dates (start - stop) Status Comments simvastatin 20 mg tablet take 1 tablet by oral route every day in the evening 20 MG - Active aspirin 81 mg tablet,delayed release take 1 tablet by oral route every day 81 MG - Active Fish Oil [place] 3-6-9 300 mg-1,000 mg capsule,delayed release - Active multivitamin tablet take 1 tablet by ora l route every day with food - Active Procedures Procedure Date Colonoscopy Flex; W/remov Les- 20 Level Iv-surg Path Gross/micro 20 Colonoscopy Flex; W/remov Les- 15 Level Iv-surg Path Gross/micro 15 Advance Directives Directive Yes / No Effective Date File Name No Information Encounters Encounter Description Practice Location Reason(s) For Visit Diagnoses Date Provider Providers Copied on Encounter [facility], [address] [address], [place], [id number], [place] tel:[phone] [place] [facility] No Information 0 Paresh Yap. [address], [place], [id number] , [place]. tel:[phone] Referring Provider: Parveen Garcia, [address], [place], [address] . tel:[phone] [facility], [address] [address], [place], [id number], [place] tel:[phone] [facility] Colorectal polyp detected on colonoscopyDivertic ulosis of colonEncounter for screening for malignant neoplasm of colonPersonal history of colonic polypsBenign neoplasm of ascending colonDvrtclos of lg int w/o perforation or abscess w/o bleedingBenign neoplasm of ascending colon 0 Luis Miguel Saini. [address] [facility] [address], [place], [place], [id number] , [place]. tel: [phone] Referring Provider: Referral Self, USE FOR SELF REFERRALS. [facility], [address] [address], [place], [id number], [place] tel:[phone] [facility] No Information 0 Luis Miguel Saini. [address], [facility] [address], [place], [place], [id number] , [place]. tel: [phone] [facility], [address] [address], [place], [place], [id number], [place] tel:[phone] [facility] Colon polypEncounter for screening for malignant neoplasm of colonBenign neoplasm of rectum 5 Corbin Onofre. [address], [facility] [address], [place], [place], [id number] , [place]. tel: [phone] Family History Family Member Type Diagnosis Age At Onset Father Problem (finding) Sister Problem (finding) Alive and well Mother Problem (finding) gallbladder disease Mother Problem (finding) Thyroid disorder Mother Problem (finding) Alive and well Son Problem (finding) Alive and well Immunizations Vaccine Date Status Comments influenza, high-dose seasona l, quadrivalent, .7mL dose, preservative free administered Note: [facility] bi-direct ional interface ; Source: Other Registry Seasonal, quadrivalent, recombinant, injectable influenza vaccine, preservative free administered Note: [facility] bi-direct ional interface ; Source: Other Registry zoster vaccine recombinant administered N ote: [facility] bi-directional interface ; Source: Other Registry Pneumovax 23 administered Note: [facility] bi-d irectional interface ; Source: Other Registry influenza, high dose seasona l, preservative-free administered Note: [facility] bi-direct ional interface ; Source: Other Registry tetanus and diphtheria toxoi ds, adsorbed, preservative free, for adult use (5 Lf of tetanus toxoid and 2 Lf of diphtheria toxoid) administered Note: [facility] bi-direct ional interface ; Source: Other Registry Prevnar 13 administered Note: [facility] bi-d irectional interface ; Source: Other Registry influenza, high dose seasona l, preservative-free administered Note: [facility] bi-direct ional interface ; Source: Other Registry Afluria Qd administered Note: [facility] bi-directional interface ; Source: Other Registry Influenza, seasonal, injectable administe red Note: [facility] bi- directional interface ; Source: Other Registry Influenza, seasonal, injectable administe red Note: [facility] bi- directional interface ; Source: Other Registry Payers Payer name Insurance type Covered democrat ID Authoriza tisavi(s) Blue Cross Medicare Advantage [id number] Social History Type Description Quantity Date Captured Comments Sex Male Smoking Status No Information Chief Complaint And Reason For Visit No Information Reason For Referral Reason For Referral No Information History Of Present Illness Encounter Date Complaint History Of Prese nt Illness No Information Functional Status Date Functional Assessmen t No Information Instructions Date Instruction Additional Infor mation Diverticulosis/Diverticulitis Re lated to Colorectal polyp detected on colonoscopy Colon Polyps Related to Color ectal polyp detected on colonoscopy Colon Cancer Prevention Related to Colorectal polyp detected on colonoscopy High Fiber Diet Related to Color ectal polyp detected on colonoscopy Colon Polyps Related to Colon polyp Colon Cancer Prevention Related to Colon polyp Assessments Type Assessment Date No Information Patient Care Teams Name Effective Dates (start - stop) Status Members No Information
--- NOTE | 2023-07-24 07:15 | CRLHL7_ITS ---
For Patients: As a result of the Century Cures Act, medical imaging exams and procedure reports are released immediately into your electronic medical record. You may view this report before your referring provider. If you have questions, please contact your health care provider. ULTRASOUND ABDOMINAL AORTA 07/24/2023 CLINICAL HISTORY: Abdominal aortic aneurysm. COMPARISON: lumbar spine radiographs 07/09/2023. TECHNIQUE: The abdominal aorta and iliac arteries were examined with isaac-scale ultrasound, color flow and Doppler spectral analysis. Bypass grafts and stents may be evaluated per exam specific protocol. Vessel size, peak systolic velocity (PSV) and velocity ratios if applicable, were obtained and documented at sites per exam specific protocol. FINDINGS: Proximal AO: 3.2 cm AP. 3.2 cm width Mid AO: 3.1 cm AP. 3.3 cm width Distal AO: 4.2 cm AP. 4.1 cm width Right STEPHY: 1.7 cm AP. 1.6 cm width Left STEPHY: 1.6 cm AP. 1.6 cm width Aneurysmal location: Infrarenal and suprarenal. The abdominal aorta is diffusely aneurysmal measuring up to 3.2 cm in its proximal portion. The maximal aneurysmal diameter is 4.2 cm in the infrarenal portion. The bilateral common iliac arteries are ectatic measuring 1.7 cm on the right and 1.6 cm on the left. IMPRESSION 1. Abdominal aortic aneurysm measuring up to 4.2 cm. 2. 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 Victor Manuel Erickson M.D. [email or web address] Transcribed: 11:48 am DW/Dictated by: Victor Manuel Erickson MD @ 07/24/2023 9:21:00 AM (Electronically Signed)
== END 2023-07-24 07:01 | disposition home or self-care (01) ==
LOC: US 07:01
PROVIDERS: PCP Physician Assistant Medical; Visit Provider Physician Assistant Medical
DX: Z13.6 Encounter for screening for cardiovascular disorders (principal); Z87.891 Personal history of nicotine dependence
CPT/HCPCS: 76706

== ENCOUNTER 2023-09-10 09:40 | Outpatient (CLI) | payer MEDICARE, SELFPAY | END 2023-09-10 09:41 | disposition home or self-care (01) | LOC: NFLDREF 09-12 02:50 | PROVIDERS: PCP Physician Assistant Medical; Referring Provider Physician Assistant Medical; Visit Provider Family Medicine | DX: Z01.818 Encounter for other preprocedural examination (principal); I49.9 Cardiac arrhythmia, unspecified; N30.00 Acute cystitis without hematuria | CPT/HCPCS: 87086; 87186 ==

== ENCOUNTER 2023-10-02 10:27 | Day surgery (SDC) | payer MEDICARE, SELFPAY ==
[2023-10-02] VITALS (26 sets, daily range): BP systolic 82–126; BP diastolic 53–94; PULSE 63–90; RESP 12–16; TEMP 35.7–37.2; O2SAT 88–98; BMI 35.3
--- OUTSIDE RECORDS SUMMARY | 2023-10-02 10:30 | XMS_ITS | Referral Summary ---
Author Organization [facility] Address [address] [place] [address] Care Team Providers Care Sign Hanger Supervisor Name Role Phone [place] Schumacher PA-C Primary Care Provider [phone] Ania Brewer MD Unavailable [phone]- [phone] Rola Kumari DO Unavailable [phone] Encounters Date Type Department Care Team Description 10/01/2023 Telephone [facility] [address] [place] [phone] Rola Kumari DO Call Back (Surgery clerance) 09/27/2023 MyC Medical Advice [facility] [address] [place] [phone] Rola Kumari DO 09/26/2023 Travel 09/26/2023 8:52 AM CDT - 09/26/2023 11:59 PM CDT Hospital Encounter [facility] [address] [place] [address] Rola Kumari DO Discharge Disposition: Home or Self Care 09/26/2023 8:52 AM CDT - 09/26/2023 11:59 PM CDT Hospital Encounter [facility] [address] [place] [phone] Rola Kumari DO Discharge Disposition: Home or Self Care 09/26/2023 8:51 AM CDT Hospital Encounter [facility] [address] [place] [phone] Rola Kumari DO Discharge Disposition: Home or Self Care 09/26/2023 8:50 AM CDT Hospital Encounter [facility] [address] [place] [phone] Rola Kumari DO Ventricular tachycardia (H); Paroxysmal ventricular tachycardia (H); Family history of ischemic heart disease; Personal history of tobacco use, presenting hazards to health Discharge Disposition: Home or Self Care 09/21/2023 8:45 AM CDT Office Visit [facility] [address] [place] [phone] Ania Brewer MD Dankle, Constance Jennifer, DO Paroxysmal ventricular tachycardia (H) (Primary Dx); Ventricular tachycardia (H); Family history of ischemic heart disease; Personal history of tobacco use, presenting hazards to health 09/20/2023 Travel 09/20/2023 3:30 PM CDT Office Visit [facility] [place] 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 july 2023 US; Primary osteoarthritis of right hip; Former smoker; Hyperlipidemia LDL goal <70; Osteoarthritis of lumbar spine, unspecified spinal osteoarthritis complication status 09/10/2023 External Order Results [facility] [address] [place] [address] Outside, Provider 09/06/2023 Orders Only [facility] [address] [place] [phone] Ania Brewer MD Bradycardia (Primary Dx); PVC's (premature ventricular contractions) 09/06/2023 9:30 AM CDT Allied Health/Nurse Visit [facility] [address] [place] [phone] Ania Brewer MD Nurse Visit 09/05/2023 Travel 09/05/2023 10:00 AM CDT Ancillary Procedure [facility] [address] 2[address] [place] [address] Ania Brewer MD Bradycardia; PVC's (premature ventricular contractions) 09/05/2023 7:30 AM CDT - 09/05/2023 11:59 PM CDT Hospital Encounter [facility] [address] [facility] 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 [address] [place] [address] Bradycardia; PVC's (premature ventricular contractions); Hyperlipidemia LDL goal <70; Infrarenal abdominal aortic aneurysm (AAA) without rupture (H24) 4.2 cm on US 07/2023 [facility] 08/29/2023 Travel 08/29/2023 12:00 PM CDT Office Visit [facility] [place] 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 [place] [phone] Nurse, Sh [facility] Referral (Pt referred to [facility] by [place] Schumacher PA-C for 4.2 cm AAA) 07/24/2023 [facility] [address] [place] [phone] Scan, Non-Provider from Last 3 Months Allergies No known active allergies Medications Medication Sig Dispensed Refills Start Date End Date Status ASPIRIN LOW DOSE 81 MG chewable tablet Take 81 mg by mouth daily Active simvastatin (ZOCOR) 20 MG tablet Take 20 mg by mouth daily Active Multiple Vitamin (MULTIVITAMIN ADULT PO) Take by mouth daily Active metoprolol succinate ER (TOPROL XL) 25 MG 24 hr tabletIndications:Vent ricular tachycardia (H),Family history of ischemic heart disease Take 1 tablet (25 mg) by mouth daily 30 tablet 11 09/21/2023 Active Active Problems No known active problems Social History Tobacco Use Types Packs/Day Years Used Date Smoking Tobacco: Never Smokeless Tobacco: Never Tobacco Cessation:Counseling Given: Not Answered Alcohol Use Standard Drinks/Week Comments Yes 0 (1 standard drink = 0.6 oz pur e alcohol) 1-2 per day PHQ-2 Answer Date Recorded PHQ-2 Score 0 09/06/2023 Adolescent Education Answer Date Record ed Getting School Help Needed Not on file 08/28 Sex and Gender Information Value Date Recorded Sex Assigned at Not on file Gender Identity Not on file Sexual Orientation Not on file Last Filed Vital Signs Vital Sign Reading Time Taken Comments Blood Pressure 108/62 09/26/2023 10:55 AM CDT Pulse 72 09/26/2023 10:55 AM CDT Temperature - - Respiratory Rate - - Oxygen Saturation 95% 09/26/2023 9:00 AM CDT Inhaled Oxygen Concentration - - Weight 106.1 kg (233 lb 12.8 oz) 09/26/2023 9:00 AM CDT Height 175.3 cm (5' 9) 09/26/2023 9:00 AM CDT Body Mass Index 34.53 09/26/2023 9:00 AM CDT Plan of Treatment Not on file Procedures Procedure Name Priority Date/Time Associated Diagnosis Comments NM MPI WITH LEXISCAN Routine 09/26/2023 11:01 AM CDT Ventricular tachycardia (H) Paroxysmal ventricular tachycardia (H) Family history of ischemic heart disease Personal history of tobacco use, presenting hazards to health ZIO PATCH 8-14 DAYS INTERPRETATION Routine 09/18/2023 11:15 AM CDT Bradycardia PVC's (premature ventricular contractions) ROUTINE UA WITH MICROSCOPIC Routine 09/10/2023 9:40 AM CDT LAB RESULT - HIM SCAN 09/10/2023 12:00 AM CDT EKG CARDIAC - HIM SCAN 4 12:00 AM CDT EKG CARDIAC - HIM SCAN 4 12:00 AM CDT ZIO PATCH 8-14 DAYS APPLICATION Routine 09/06/2023 2:37 PM CDT Bradycardia PVC's (premature ventricular contractions) ECHO COMPLETE WITH CONTRAST Routine 09/05/2023 10:24 AM CDT Bradycardia PVC's (premature ventricular contractions) US LOWER EXTREMITY ARTERIAL DUPLEX BILATERAL Routine 09/05/2023 8:21 AM CDT 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 july 2023 US CTA CHEST ABDOMEN PELVIS RUNOFF W CONTRAST Routine 09/05/2023 7:18 AM CDT Infrarenal abdominal aortic aneurysm (AAA) without rupture (H24) 4.2 cm on US 07/2023 [facility] 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 july 2023 US CBC WITH PLATELETS & DIFFERENTIAL Routine 08/31/2023 8:58 AM CDT Infrarenal abdominal aortic aneurysm (AAA) without rupture (H24) 4.2 cm on US 07/2023 [facility] CBC WITH PLATELETS AND DIFFERENTIAL Routine 08/31/2023 8:58 AM CDT Infrarenal abdominal aortic aneurysm (AAA) without rupture (H24) 4.2 cm on US 07/2023 [facility] LIPID REFLEX TO DIRECT LDL PANEL Routine 08/31/2023 8:58 AM CDT Hyperlipidemia LDL goal <70 MAGNESIUM Routine 08/31/2023 8:58 AM CDT Hyperlipidemia LDL goal <70 COMPREHENSIVE METABOLIC PANEL Routine 08/31/2023 8:58 AM CDT Hyperlipidemia LDL goal <70 TSH WITH FREE T4 REFLEX Routine 08/31/2023 8:58 AM CDT Bradycardia PVC's (premature ventricular contractions) EKG 12-LEAD COMPLETE W/READ - CLINICS Routine 08/29/2023 Bradycardia US VASCULAR - HIM SCAN 12:00 AM CDT from Last 3 Months Results * NM Lexiscan stress test (nuc card) (09/26/2023 11:01 AM CDT) Target HR 144 RADIANT Baseline Systolic BP 108 RADIANT Baseline Diastolic BP 62 RADIANT Last Stress Systolic BP 100 RADIANT Last Stress Diastolic BP 60 RADIANT Baseline HR 75 bpm RADIANT Max HR 79 RADIANT Max Predicted HR 55 % RADIANT Rate Pressure Product 7,900.0 RADIANT Left Ventricular EF 58 % RADIANT Anatomical Region Laterality Modality Chest Nuclear Medicine Narrative 09/26/2023 4:57 PM CDT ?The nuclear stress test is negative for inducible myocardial ischemia or infarction. ?Left ventricular function is normal. ?The left ventricular ejection fraction at stress is 58%. ?There is no prior study for comparison. Stress Findings A pharmacologic stress test was performed following a sitting Lexiscan protocol using 0.4 mg of intravenous regadenoson administered over 10 seconds under the supervision of Dr. Mikal Titus. The patient reported light-headedness during the stress test. ECG Baseline electrocardiogram demonstrates sinus rhythm. There were occasional premature ventricular contractions, . The stress electrocardiogram is negative for inducible ischemic EKG changes. Isotope Administration 18.52 mCi of technetium tetrofosmin injected at the completion of Lexiscan infusion on 09/26/2023 and 5.92 mCi of technetium tetrofosmin at rest on 09/26/2023. Nuclear Study Quality The senior quality technician images demonstrate diaphragmatic attenuation. Final image quality is satisfactory. Perfusion Defect The nuclear stress test is negative for inducible myocardial ischemia or infarction. The left ventricular ejection fraction at stress is 58%. Left ventricular function is normal. Nuclear Prior Study There is no prior study for comparison. Perfusion Scoring Stress Summed Score: 0 Percent Normal: 0.00% The left ventricular perfusion is normal. Perfusion Scoring Resting Summed Score: 0 Percent Normal: 0.00% The left ventricular perfusion is normal. Perfusion Scores: SRS Score: 0 Percentage Abnormal: 0.00% Perfusion Scores: SSS Score: 0 Percentage Abnormal: 0.00% Perfusion Scores: SDS Score: 0 Percentage Abnormal: 0.00% Wall Motion Score Index: 1.00 The left ventricular wall motion is normal. Rola Kumari DO IMG NM MEIR LAINEZ * ZIO PATCH 8-14 DAYS (additional cost to patient) (09/18/2023 11:15 AM CDT) Anatomical Region Laterality Modality Other Narrative 09/18/2023 11:18 AM CDT Indication: Bradycardia, PVCs 8 day Ziopatch monitor Baseline sinus rhythm with heart rates ranging 51-111, average 80 bpm. 21 runs of NSVT, mostly couplets and triplets. 14 runs of SVT, longest lasting 16 beats. Frequent PVCs, 21% burden No symptoms were reported. Ania Brewer MD CV CARDIAC S PERLA ORDERABLES * (ABNORMAL) UA with Microscopic (09/10/2023 9:40 AM CDT) Color Urine (External) Yellow Yellow NON-INTERFAC ED (ONBASE SCANS) Appearance Urine (External) Slightly cloudy(A) Clear NON-INTERFAC ED (ONBASE SCANS) Glucose Urine (External) Negative Negative NON-INTERFAC ED (ONBASE SCANS) Bilirubin Urine (External) Negative Negative NON-INTERFAC ED (ONBASE SCANS) Ketones Urine (External) Negative Negative NON-INTERFAC ED (ONBASE SCANS) Specific Bunn Urine (External) 1.015 1.000 - 1.030 NON-INTERFAC ED (ONBASE SCANS) Blood Urine (External) Negative Negative NON-INTERFAC ED (ONBASE SCANS) pH Urine (External) 7.0 5.0 - 8.5 NON-INTERFAC ED (ONBASE SCANS) Protein Albumin Ur (External) Negative Negative NON-INTERFAC ED (ONBASE SCANS) Nitrites Urine (External) Positive(A) Negative NON-INTERFAC ED (ONBASE SCANS) Leukocyte Esterase Urine (External) 2+(A) Negative NON-INTERFAC ED (ONBASE SCANS) RBC Urine (External) 0-2 0 - 2 NON-INTERFAC ED (ONBASE SCANS) WBC Urine (External) 10-25(A) 0 - 5 NON-INTERFAC ED (ONBASE SCANS) Squamous Epithelial Urine (External) None None-few NON-INTERFAC ED (ONBASE SCANS) Bacteria Urine (External) Moderate(A) None NON-INTERFAC ED (ONBASE SCANS) Urine 09/10/2023 9:40 AM CDT Narrative COREY PFT - 09/20/2023 12:09 PM CDT Verified by Anish Posada on 09/20/2023. Stevo Acosta MD LAB - URINE ORDERABL ES COREY PFT NON-INTERFACED (ONBASE SCANS) * Lab Result - HIM Scan (09/10/2023 12:00 AM CDT) 09/10/2023 Provider Outside [facility] NON-[facility]AKER [facility] TE STING * EKG Cardiac - HIM Scan (09/10/2023 12:00 AM CDT) Only the most recent of2 resultswithin the time period is included. 09/10/2023 Provider Outside ECG ORDERABLES * ECHO COMPLETE WITH CONTRAST (09/05/2023 10:24 AM CDT) LVEF 55-60% CARDIOLOGY RESULTS Anatomical Region Laterality Modality Echocardiography 09/05/2023 9:51 AM CDT Narrative 09/05/2023 1:58 PM CDT [id number]^GODISHALA^LAXMANA^NABIL [facility], Echocardiography Laboratory [address] [place] [id number] Name: RODRI KIRKLAND : 1945 Study Date: 09/05/2023 09:51 AM Age: 78 yrs Gender: Male Patient Location: [facility] Reason For Study: Bradycardia, PVC's (premature ventricular contractions) Ordering Physician: ANIA BREWER Referring Physician: ANIA BREWER Performed By: Reina Lira RDCS BSA: 2.2 m2 Height: 69 in Weight: 238 lb BP: 121/79 mmHg Procedure Echocardiogram with two-dimensional, color and spectral Doppler performed. Contrast Optison. Technically difficult study.Extremely poor acoustic windows. Limited information was obtained during study. Optison ([facility] #[id number]) given intravenously. Patient was given 5 ml mixture of 3 ml Optison and 6 ml saline. 4 ml wasted. IV start location LAC . Interpretation Summary Technically difficult study.Extremely poor acoustic windows. Limited information was obtained during study. Global and regional left ventricular function is normal with an EF of 55-60%. Diastolic function not assessed due to frequent ectopy. Right ventricular function, chamber size, wall motion, and thickness are normal. The inferior vena cava is normal. No pericardial effusion is present. There is no prior study for direct comparison. Left Ventricle Global and regional left ventricular function is normal with an EF of 55-60%. Left ventricular wall thickness is normal. Left ventricular size is normal. Diastolic function not assessed due to frequent ectopy. No regional wall motion abnormalities are seen. Right Ventricle Right ventricular function, chamber size, wall motion, and thickness are normal. Atria Both atria appear normal. Mitral Valve The mitral valve is normal. Aortic Valve The valve leaflets are not well visualized. On Doppler interrogation, there is no significant stenosis or regurgitation. Tricuspid Valve The valve leaflets are not well visualized. On Doppler interrogation, there is no significant stenosis or regurgitation. Pulmonic Valve The pulmonic valve cannot be assessed. Vessels The aorta root is normal. The thoracic aorta is normal. The pulmonary artery cannot be assessed. The inferior vena cava is normal. Pericardium No pericardial effusion is present. Compared to Previous Study There is no prior study for direct comparison. MMode/2D Measurements & Calculations Ao root diam: 3.6 cm asc Aorta Diam: 3.7 cm LVOT diam: 2.4 cm LVOT area: 4.7 cm2 Ao root diam index Ht(cm/m): 2.1 Ao root diam index BSA (cm/m2): 1.6 Asc Ao diam index BSA (cm/m2): 1.7 Asc Ao diam index Ht(cm/m): 2.1 LA Volume (BP): 72.5 ml LA Volume Index (BP): 32.7 ml/m2 Report approved by: Mariam Gomez 09/05/2023 01:58 PM Procedure Note Crys Marin MD - 09/05/2023 [id number]^GODISHALA^LAXMANA^NABIL [facility], Echocardiography Laboratory [address] [place] [id number] Name: RODRI KIRKLAND : 1945 Study Date: 09/05/2023 09:51 AM Age: 78 yrs Gender: Male Patient Location: [facility] Reason For Study: Bradycardia, PVC's (premature ventricularcontractions) Ordering Physician: ANIA BREWER Referring Physician: ANIA BREWER Performed By: Reina Lira RDCS BSA: 2.2 m2 Height: 69 in Weight: 238 lb BP: 121/79 mmHg Procedure Echocardiogram with two-dimensional, color and spectral Dopplerperformed. Contrast Optison. Technically difficult study.Extremely poor acousticwindows. Limited information was obtained during study. Optison ([facility]#[id number]) given intravenously. Patient was given 5 ml mixture of 3 ml Optison and 6ml saline. 4 ml wasted. IV start location LAC . Interpretation Summary Technically difficult study.Extremely poor acoustic windows. Limited information was obtained during study. Global and regional left ventricular function is normal with an EF of55-60%. Diastolic function not assessed due to frequent ectopy. Right ventricular function, chamber size, wall motion, and thickness are normal. The inferior vena cava is normal. No pericardial effusion is present. There is no prior study for direct comparison. Left Ventricle Global and regional left ventricular function is normal with an EF of55-60%. Left ventricular wall thickness is normal. Left ventricular size isnormal. Diastolic function not assessed due to frequent ectopy. No regional wall motion abnormalities are seen. Right Ventricle Right ventricular function, chamber size, wall motion, and thickness are normal. Atria Both atria appear normal. Mitral Valve The mitral valve is normal. Aortic Valve The valve leaflets are not well visualized. On Doppler interrogation,there is no significant stenosis or regurgitation. Tricuspid Valve The valve leaflets are not well visualized. On Doppler interrogation,there is no significant stenosis or regurgitation. Pulmonic Valve The pulmonic valve cannot be assessed. Vessels The aorta root is normal. The thoracic aorta is normal. The pulmonaryartery cannot be assessed. The inferior vena cava is normal. Pericardium No pericardial effusion is present. Compared to Previous Study There is no prior study for direct comparison. MMode/2D Measurements & Calculations Ao root diam: 3.6 cm asc Aorta Diam: 3.7 cm LVOT diam: 2.4 cm LVOT area: 4.7 cm2 Ao root diam index Ht(cm/m): 2.1 Ao root diam index BSA (cm/m2): 1.6 Asc Ao diam index BSA (cm/m2): 1.7 Asc Ao diam index Ht(cm/m): 2.1 LA Volume (BP): 72.5 ml LA Volume Index (BP): 32.7 ml/m2 Report approved by: Mariam Gomez 09/05/2023 01:58 PM Ania Brewer MD CV ECHO MEIR LAINEZ * US Lower Extremity Arterial Duplex Bilateral (09/05/2023 8:21 AM CDT) Anatomical Region Laterality Modality Vascular Ultrasound Impressions 09/05/2023 10:43 AM CDT IMPRESSION: 1. ??RIGHT LOWER EXTREMITY: Distal SFA aneurysm not noted on duplex exam. 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 Normal wave forms throughout. 2. ??LEFT LOWER EXTREMITY: Occluded distal SFA and popliteal artery. VIRIDIANA ELDER MD Narrative 09/05/2023 10:43 AM CDT [facility] LOCATION: [facility] DATE: 09/05/2023 EXAM: DUPLEX ARTERIAL ULTRASOUND OF THE LOWER EXTREMITIES BILATERALLY INDICATION: AAA. Assess for popliteal artery aneurysm. TECHNIQUE: Duplex imaging is performed utilizing isaac-scale, two-dimensional images and color-flow imaging. Doppler waveform analysis and spectral Doppler imaging is also performed. COMPARISON: CTA runoff 09/05/2023 FINDINGS: WAVEFORMS: Right leg: Normal triphasic to biphasic waveforms. Left leg: ??Multiphasic through the proximal SFA transitioning to monophasic at the TP trunk. DUPLEX ARTERIAL ULTRASOUND FINDINGS: (velocities in cm/s) RIGHT COMPLIANCE EXAMINER: 103 PFA: 113 SFA prox: 109 SFA mid: 107 SFA dist: 101 Pop: 77 PT: Not obtained AT: 118 DP: Not obtained Mild aneurysmal dilation of the popliteal artery measuring 9 mm in diameter. Mild luminal irregularity at level of aneurysm. Larger distal SFA aneurysm as seen on CTA not noted on duplex. LEFT COMPLIANCE EXAMINER: 118 PFA: 127 SFA prox: 67 SFA mid: 78 SFA dist: Occluded Pop: Occluded TP trunk: 25 PT: Not obtained AT: Not obtained DP: Not obtained Procedure Note Viridiana Elder MD - 09/05/2023 [facility] LOCATION: [facility] DATE: 09/05/2023 EXAM: DUPLEX ARTERIAL ULTRASOUND OF THE LOWER EXTREMITIES BILATERALLY INDICATION: AAA. Assess for popliteal artery aneurysm. TECHNIQUE: Duplex imaging is performed utilizing isaac-scale, two-dimensional images and color-flow imaging. Doppler waveform analysis and spectral Doppler imaging is also performed. COMPARISON: CTA runoff 09/05/2023 FINDINGS: WAVEFORMS: Right leg: Normal triphasic to biphasic waveforms. Left leg: Multiphasic through the proximal SFA transitioning to monophasic at the TP trunk. DUPLEX ARTERIAL ULTRASOUND FINDINGS: (velocities in cm/s) RIGHT COMPLIANCE EXAMINER: 103 PFA: 113 SFA prox: 109 SFA mid: 107 SFA dist: 101 Pop: 77 PT: Not obtained AT: 118 DP: Not obtained Mild aneurysmal dilation of the popliteal artery measuring 9 mm in diameter. Mild luminal irregularity at level of aneurysm. Larger distal SFA aneurysm as seen on CTA not noted on duplex. LEFT COMPLIANCE EXAMINER: 118 PFA: 127 SFA prox: 67 SFA mid: 78 SFA dist: Occluded Pop: Occluded TP trunk: 25 PT: Not obtained AT: Not obtained DP: Not obtained IMPRESSION: 1. RIGHT LOWER EXTREMITY: Distal SFA aneurysm not noted on duplex exam. 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 Normal wave forms throughout. 2. LEFT LOWER EXTREMITY: Occluded distal SFA and popliteal artery. VIRIDIANA ELDER MD Ania Brewer MD IMG US ORDER JAE * CTA Chest Abdomen Pelvis Runoff w Contrast (09/05/2023 7:18 AM CDT) Anatomical Region Laterality Modality Abdomen/Pelvis, SUBRAD IR NC ZAIDA, UMP CT CTA, RAD CT Computed Tomography Impressions 09/05/2023 10:54 AM CDT IMPRESSION: 1. 4.2 cm infrarenal abdominal aortic aneurysm. 2. 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 3. 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 KENDALL MULLIGAN MD Narrative 09/05/2023 10:54 AM CDT CTA CHEST, ABDOMEN, PELVIS RUNOFF WITH CONTRAST ??09/05/2023 7:18 AM HISTORY: Abdominal aortic aneurysm. COMPARISON: CT of the abdomen and pelvis dated 01/19/2003. TECHNIQUE: CT angiogram of the chest, abdomen, pelvis with bilateral lower extremity runoff was performed following the administration of 100 mL intravenous contrast. Images are reviewed in multiple planes and 3-D reconstructions were performed. Radiation dose for this scan was reduced using automated exposure control, adjustment of the mA and/or kV according to patient size, or iterative reconstruction technique. FINDINGS: Vascular exam: Thoracic aorta: The thoracic aorta at the sinuses of Valsalva has a maximum sinus to sinus diameter of approximately 3.8 cm. The diameter at the sinotubular junction is approximately 3.1 cm. The diameter of the mid ascending thoracic aorta is approximately 3.3 cm. The diameter at the level of the mid arch is approximately 3.1 cm. The diameters of the proximal, mid, and distal descending thoracic aorta are approximately 3.0, 3.0, and 2.8 cm respectively. The great vessels arising from the thoracic aortic arch are patent without significant stenoses. Abdominal aorta: There is an infrarenal abdominal aortic aneurysm. This has a maximum anterior-posterior and transverse diameter of approximately 4.2 x 4.0 cm. The visceral branches of the abdominal aorta are patent. Iliac arteries: The iliac arteries are patent without significant stenoses or aneurysmal dilatation. Right lower extremity angiogram: Common femoral artery: No significant stenosis. Profunda femoris artery: No significant stenosis. Superficial femoral artery: No significant stenosis. 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 This has a maximum anterior-posterior and transverse diameter of approximately 2.2 x 1.8 cm. There is a moderate amount of mural thrombus in this aneurysm. The popliteal artery behind the knee is obscured due to streak artifact from a right total knee arthroplasty. Tibial arteries: The distal anterior tibial artery is poorly opacified. There appears to be three-vessel runoff. Left lower extremity angiogram: Common femoral artery: No significant stenosis. Profunda femoris artery: No significant stenosis. Superficial femoral artery: Moderate stenosis at the level of the adductor canal. Popliteal artery: Appears to be occluded above the knee. Obscured behind the knee and below the knee due to artifact from a left total knee arthroplasty. Tibial arteries: There appears to be three-vessel runoff. Soft tissue exam: Chest: Atelectatic changes in the lingula. No mediastinal, hilar, or axillary lymphadenopathy. Scattered coronary artery calcifications. Abdomen/pelvis: There is a cyst in the caudate lobe of the liver. Solid organs in the abdomen are otherwise grossly unremarkable. There are scattered colonic diverticuli. The patient is status post a left total hip arthroplasty. Procedure Note Kendall Mulligan MD - 09/05/2023 CTA CHEST, ABDOMEN, PELVIS RUNOFF WITH CONTRAST 09/05/2023 7:18 AM HISTORY: Abdominal aortic aneurysm. COMPARISON: CT of the abdomen and pelvis dated 01/19/2003. TECHNIQUE: CT angiogram of the chest, abdomen, pelvis with bilateral lower extremity runoff was performed following the administration of 100 mL intravenous contrast. Images are reviewed in multiple planes and 3-D reconstructions were performed. Radiation dose for this scan was reduced using automated exposure control, adjustment of the mA and/or kV according to patient size, or iterative reconstruction technique. FINDINGS: Vascular exam: Thoracic aorta: The thoracic aorta at the sinuses of Valsalva has a maximum sinus to sinus diameter of approximately 3.8 cm. The diameter at the sinotubular junction is approximately 3.1 cm. The diameter of the mid ascending thoracic aorta is approximately 3.3 cm. The diameter at the level of the mid arch is approximately 3.1 cm. The diameters of the proximal, mid, and distal descending thoracic aorta are approximately 3.0, 3.0, and 2.8 cm respectively. The great vessels arising from the thoracic aortic arch are patent without significant stenoses. Abdominal aorta: There is an infrarenal abdominal aortic aneurysm. This has a maximum anterior-posterior and transverse diameter of approximately 4.2 x 4.0 cm. The visceral branches of the abdominal aorta are patent. Iliac arteries: The iliac arteries are patent without significant stenoses or aneurysmal dilatation. Right lower extremity angiogram: Common femoral artery: No significant stenosis. Profunda femoris artery: No significant stenosis. Superficial femoral artery: No significant stenosis. 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 This has a maximum anterior-posterior and transverse diameter of approximately 2.2 x 1.8 cm. There is a moderate amount of mural thrombus in this aneurysm. The popliteal artery behind the knee is obscured due to streak artifact from a right total knee arthroplasty. Tibial arteries: The distal anterior tibial artery is poorly opacified. There appears to be three-vessel runoff. Left lower extremity angiogram: Common femoral artery: No significant stenosis. Profunda femoris artery: No significant stenosis. Superficial femoral artery: Moderate stenosis at the level of the adductor canal. Popliteal artery: Appears to be occluded above the knee. Obscured behind the knee and below the knee due to artifact from a left total knee arthroplasty. Tibial arteries: There appears to be three-vessel runoff. Soft tissue exam: Chest: Atelectatic changes in the lingula. No mediastinal, hilar, or axillary lymphadenopathy. Scattered coronary artery calcifications. Abdomen/pelvis: There is a cyst in the caudate lobe of the liver. Solid organs in the abdomen are otherwise grossly unremarkable. There are scattered colonic diverticuli. The patient is status post a left total hip arthroplasty. IMPRESSION: 1. 4.2 cm infrarenal abdominal aortic aneurysm. 2. 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 3. 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 KENDALL MULLIGAN MD Ania Brewer MD IMG CT ORDER JAE * CBC with platelets and differential (08/31/2023 8:58 AM CDT) WBC Count 8.2 4.0 - 11.0 10e3/uL 08/31/2023 9:09 AM CDT [facility] RBC Count 4.84 4.40 - 5.90 10e6/uL 08/31/2023 9:09 AM CDT [facility] Hemoglobin 15.0 13.3 - 17.7 g/dL 08/31/2023 9:09 AM CDT [facility] Hematocrit 45.8 40.0 - 53.0 % 08/31/2023 9:09 AM CDT [facility] MCV 95 78 - 100 fL 08/31/2023 9:09 AM CDT [facility] MCH 31.0 26.5 - 33.0 pg 08/31/2023 9:09 AM CDT [facility] MCHC 32.8 31.5 - 36.5 g/dL 08/31/2023 9:09 AM CDT [facility] RDW 13.8 10.0 - 15.0 % 08/31/2023 9:09 AM CDT [facility] Platelet Count 214 150 - 450 10e3/uL 08/31/2023 9:09 AM CDT [facility] % Neutrophils 65 % 08/31/2023 9:09 AM CDT [facility] % Lymphocytes 21 % 08/31/2023 9:09 AM CDT [facility] % Monocytes 11 % 08/31/2023 9:09 AM CDT [facility] % Eosinophils 2 % 08/31/2023 9:09 AM CDT [facility] % Basophils 0 % 08/31/2023 9:09 AM CDT [facility] % Immature Granulocytes 0 % 08/31/2023 9:09 AM CDT [facility] Absolute Neutrophils 5.3 1.6 - 8.3 10e3/uL 08/31/2023 9:09 AM CDT [facility] Absolute Lymphocytes 1.7 0.8 - 5.3 10e3/uL 08/31/2023 9:09 AM CDT [facility] Absolute Monocytes 0.9 0.0 - 1.3 10e3/uL 08/31/2023 9:09 AM CDT [facility] Absolute Eosinophils 0.2 0.0 - 0.7 10e3/uL 08/31/2023 9:09 AM CDT [facility] Absolute Basophils 0.0 0.0 - 0.2 10e3/uL 08/31/2023 9:09 AM CDT [facility] Absolute Immature Granulocytes 0.0 <=0.4 10e3/uL 08/31/2023 9:09 AM CDT [facility] Blood BLOOD SPECIMEN / Unknown Venipuncture / Unknown 08/31/2023 8:58 AM CDT 08/31/2023 8:58 AM CDT Ania Brewer MD LAB - BLOOD ORDERABLES LABORATORY [facility] [address] [facility] (no room number, 1st floor of clinic) [place] [address], [facility] [phone] * TSH with free T4 reflex (08/31/2023 8:58 AM CDT) TSH 2.62 0.30 - 4.20 uIU/mL 08/31/2023 11:41 PM CDT [facility] Blood BLOOD SPECIMEN / Unknown Venipuncture / Unknown 08/31/2023 8:58 AM CDT 08/31/2023 8:58 AM CDT Ania Brewer MD LAB - BLOOD ORDERABLES [facility] [address] [facility], [address] * Magnesium (08/31/2023 8:58 AM CDT) Magnesium 2.1 1.7 - 2.3 mg/dL 08/31/2023 11:41 PM CDT [facility] Blood BLOOD SPECIMEN / Unknown Venipuncture / Unknown 08/31/2023 8:58 AM CDT 08/31/2023 8:58 AM CDT Ania Brewer MD LAB - BLOOD ORDERABLES Performing Organization Address City/[facility]/ZIP Co de Phone Number [facility] [address] [facility], [address] * Lipid panel reflex to direct LDL Fasting (08/31/2023 8:58 AM CDT) Cholesterol 157 <200 mg/dL 08/31/2023 11:41 PM CDT [facility] Triglycerides 92 <150 mg/dL 08/31/2023 11:41 PM CDT [facility] Direct Measure HDL 64 >=40 mg/dL 2023 11:41 PM CDT [facility] LDL Cholesterol Calculated 75 <=100 mg/dL 08/31/2023 11:41 PM CDT [facility] Non HDL Cholesterol 93 <130 mg/dL 08/31/2023 11:41 PM CDT [facility] Patient Fasting > 8hrs? Yes 08/31/2023 11:41 PM CDT [facility] Blood BLOOD SPECIMEN / Unknown Venipuncture / Unknown 08/31/2023 8:58 AM CDT 08/31/2023 8:58 AM CDT Narrative [facility] - 08/31/2023 11:41 PM CDT Cholesterol Desirable: ??<200 mg/dL Triglycerides Normal: ??Less than 150 mg/dL Borderline High: ??150-199 mg/dL High: ??200-499 mg/dL Very High: ??Greater than or equal to 500 mg/dL Direct Measure HDL Female: ??Greater than or equal to 50 mg/dL Male: ??Greater than or equal to 40 mg/dL LDL Cholesterol Desirable: ??<100mg/dL Above Desirable: ??100-129 mg/dL Borderline High: ??130-159 mg/dL High: ??160-189 mg/dL Very High: ??>= 190 mg/dL Non HDL Cholesterol Desirable: ??130 mg/dL Above Desirable: ??130-159 mg/dL Borderline High: ??160-189 mg/dL High: ??190-219 mg/dL Very High: ??Greater than or equal to 220 mg/dL Ania Brewer MD LAB - BLOOD ORDERABLES [facility] [address] [facility], [address] [place] [id number] * (ABNORMAL) Comprehensive metabolic panel (08/31/2023 8:58 AM CDT) Sodium 138 135 - 145 mmol/L 08/31/2023 11:41 PM CDT [facility] Potassium 4.4 3.4 - 5.3 mmol/L 08/31/2023 11:41 PM CDT [facility] Carbon Dioxide (CO2) 26 22 - 29 mmol/L 08/31/2023 11:41 PM CDT [facility] Anion Gap 8 7 - 15 mmol/L 08/31/2023 11:41 PM CDT [facility] Urea Nitrogen 13.9 8.0 - 23.0 mg/dL 08/31/2023 11:41 PM CDT [facility] Creatinine 0.78 0.67 - 1.17 mg/dL 08/31/2023 11:41 PM CDT [facility] GFR Estimate >90 >60 mL/min/1. 73m2 08/31/2023 11:41 PM CDT [facility] Comment:eGFR calculated usin g 2020 CKD-EPI equation. Calcium 9.4 8.8 - 10.2 mg/dL 08/31/2023 11:41 PM CDT [facility] Chloride 104 98 - 107 mmol/L 08/31/2023 11:41 PM CDT [facility] Glucose 104(H) 70 - 99 mg/dL 08/31/2023 11:41 PM CDT [facility] Alkaline Phosphatase 58 40 - 150 U/L 08/31/2023 11:41 PM CDT [facility] AST 12 0 - 45 U/L 08/31/2023 11:41 PM CDT [facility] Comment:Reference intervals for this test were updated on 07/31/2022 to more accurately reflect our healthy population. There may be differences in the flagging of prior results with similar values performed with this method. Interpretation of those prior results can be made in the context of the updated reference intervals. ALT 16 0 - 70 U/L 08/31/2023 11:41 PM CDT [facility] Comment:Reference intervals for this test were updated on 07/31/2022 to more accurately reflect our healthy population. There may be differences in the flagging of prior results with similar values performed with this method. Interpretation of those prior results can be made in the context of the updated reference intervals. Protein Total 6.7 6.4 - 8.3 g/dL 08/31/2023 11:41 PM CDT [facility] Albumin 4.0 3.5 - 5.2 g/dL 08/31/2023 11:41 PM CDT [facility] Bilirubin Total 0.4 <=1.2 mg/dL 08/31/2023 11:41 PM CDT [facility] Patient Fasting > 8hrs? Yes 08/31/2023 11:41 PM CDT [facility] Blood BLOOD SPECIMEN / Unknown Venipuncture / Unknown 08/31/2023 8:58 AM CDT 08/31/2023 8:58 AM CDT Ania Brewer MD LAB - BLOOD ORDERABLES [facility] [place] [facility] [address] [facility], [address] [place] [address] * EKG 12-lead complete w/read - Clinics (08/29/2023) Ania Brewer MD ECG ORDERABL ES * US Vascular - HIM Scan (07/24/2023 12:00 AM CDT) Anatomical Region Laterality Modality Other 07/24/2023 Provider Outside IMG US ORDERABLES from Last 3 Months Care Teams Sign Hanger Supervisor Relationship Specialty Start Date End Date Chester Schumacher PA-C [facility] [address] [place] [address] PCP - General 08/29/23 Ania Brewer MD [address] [place] [id number] Assigned Heart and Vascular Provider 09/11/23 Rola Kumari DO [address] [place] [id number] Physician Cardiovascular Disease 09/18/23
--- OUTSIDE RECORDS SUMMARY | 2023-10-02 10:30 | XMS_ITS | Encounter Summary ---
Author Organization [place] Address [facility] [place] [address] Care Team Providers Care Hold Worker Name Role Phone Filiberto Schumacherwilliam LUKE Primary Care Provider [phone] Ana Brewer MD Unavailable + [phone] Rola Kumari DO Unavailable [phone] Reason for Referral * Diagnostic Imaging NM (Routine) - Authorized Specialty Diagnoses / Procedures Referred By Contac t Referred To Contact Radiology. Diagnoses Ventricular tachycardia (H) Paroxysmal ventricular tachycardia (H) Family history of ischemic heart disease Personal history of tobacco use, presenting hazards to health Procedures NM Lexiscan stress test (nuc card) Rola Kumari DO [address] [place] [address] Nuclear Medicine [address] [place] [id number] Referral ID Status Reason Start Date Expiration Date V isits Requested Visits Authorized [id number] Authorized 09/21/2023 09/20/2024 5 5 Reason for Visit * Reason Comments Tachycardia * CV Cardio consult (Urgent: 3-5 Days) - Pending Review Specialty Diagnoses / Procedures Referred By Contac t Referred To Contact Cardiovascular Disease Diagnoses Ventricular tachycardia (H) Ana Brewer MD [address] [place] [id number] Referral ID Status Reason Start Date Expiration Date V isits Requested Visits Authorized [id number] Pending Review 09/18/2023 09/17/2024 3 3 Encounter Details Date Type Department Care Team (Late st Contact Info) Description 09/21/2023 8:45 AM CDT Office Visit [address] [place] [phone] Ana Brewer MD [address] [place] [id number] Rola Kumari DO [address] [place] [id number] Paroxysmal ventricular tachycardia (H) (Primary Dx); Ventricular tachycardia (H); Family history of ischemic heart disease; Personal history of tobacco use, presenting hazards to health Social History Tobacco Use Types Packs/Day Years Used Date Smoking Tobacco: Never Smokeless Tobacco: Never Alcohol Use Standard Drinks/Week Comments Yes 0 [...] on file Sexual Orientation Not on file documented as of this encounter Last Filed Vital Signs Vital Sign Reading Time Taken Comments Blood Pressure 120/74 09/21/2023 8:39 AM CDT Pulse 76 09/21/2023 8:39 AM CDT Temperature - - Respiratory Rate - - Oxygen Saturation - - Inhaled Oxygen Concentration - - Weight 106.5 kg (234 lb 12.8 oz) 09/21/2023 8:39 AM CDT Height 175.3 cm (5' 9) 09/21/2023 8:39 AM CDT Body Mass Index 34.67 09/21/2023 8:39 AM CDT documented in this encounter Progress Notes * Rola Kumari, DO - 09/21/2023 8:45 AM CDT HPI and Plan: Rodri Kirkland is a 78 year old male who presents with history of peripheral arterial disease,abdominal aneurysm, remote tobacco history, and strong family history of premature coronary disease. He is scheduled to undergo a right hip surgery on Sunday. He has been referred to our clinic because of evidence of ventricular tachycardia on Zio patch monitor. It seems in his workup for his back and hip he was diagnosed with the abdominal aneurysm and peripheral arterial disease and was alsonoted to have significant ventricular arrhythmias. He was sent for both a Zio patch monitor and an echocardiogram. The Zio patch monitor showed frequent runs of couplets, triplets and an 11 beat run of ventricular tachycardia. His echocardiogram was suboptimal with very limited views, however LV systolic function was read as normal and no obvious regional wall motion abnormalities noted. There isfrequent ventricular ectopy noted on this echocardiogram. He denies any symptoms such as chest pains or shortness of breath however he is quite limited in his activity because of his ongoing hip pain. He has been undergoing physical therapy for his back which has helped but his hip pain remains. He has no known history of diabetes, hypertension, and he has treated hyperlipidemia on moderate intensity simvastatin with cholesterol numbers couple weeks ago total 157 HDL 64 LDL 75 and triglycerides 92 I reviewed his ECG from his primary which demonstrates a normal sinus rhythm with frequent PVCs butno ST segment changes. Exam today reveals distant heart tones irregular and no murmur, he has significant varicosities in his lower extremities with diminished pulses Summary 78-year-old male with evidence of paroxysmal ventricular tachycardia, peripheral arterial disease and abdominal aortic aneurysm, hyperlipidemia, and remote tobacco abuse #1 recommend ischemic testing given the above and risks for perioperative cardiac events. I have recommended a Lexiscan stress test to be done in [place]. I will also recommend that he start perioperative beta-sherin with metoprolol 25 mg daily and I gave him a prescription for this today. #2 coronary calcifications noted on chest CT-he is on aspirin and statin therapy I will follow-up with the results of his stress test once complete and provide estimate of perioperative cardiac risks. Please feel free to contact me with any questions given regards to his care Today's clinic visit entailed: Review of external notes as documented elsewhere in note Review of the result(s) of each unique test - chest/abd CT, Ziopatch, Echo, lipids Ordering of each unique test Prescription drug management Provider Link to MDM Help Grid The level of medical decision making during this visit was of moderate complexity. The longitudinal plan of care for the diagnosis(es)/condition(s) as documented were addressed during this visit. Due to the added complexity in care, I will continue to support Rodri in the subsequent management and with ongoing continuity of care. No orders of the defined types were placed in this encounter. Orders Placed This Encounter Medications Multiple Vitamin (MULTIVITAMIN ADULT PO) Sig: Take by mouth daily metoprolol succinate ER (TOPROL XL) 25 MG 24 hr tablet Sig: Take 1 tablet (25 mg) by mouth daily Dispense: 30 tablet Refill: 11 There are no discontinued medications. Encounter Diagnoses Name Primary? Ventricular tachycardia (H) Paroxysmal ventricular tachycardia (H) Yes Family history of ischemic heart disease Personal history of tobacco use, presenting hazards to health CURRENT MEDICATIONS: Current Outpatient Medications Medication Sig Dispense Refill ASPIRIN LOW DOSE 81 MG chewable tablet Take 81 mg by mouth daily metoprolol succinate ER (TOPROL XL) 25 MG 24 hr tablet Take 1 tablet (25 mg) by mouth daily 30 tablet 11 Multiple Vitamin (MULTIVITAMIN ADULT PO) Take by mouth daily simvastatin (ZOCOR) 20 MG tablet Take 20 mg by mouth daily ALLERGIES No Known Allergies PAST MEDICAL HISTORY: Past Medical History: Diagnosis Date AAA (abdominal aortic aneurysm) without rupture (H24) Bilateral sensorineural hearing loss Bladder cancer (H) Degenerative joint disease of right hip Ectasia of Bilateral iliac artery (H24) Hyperlipidemia LDL goal <70 PAST SURGICAL HISTORY: Past Surgical History: Procedure Laterality Date OTHER SURGICAL HISTORY Bladder cancer related surgeries s/p hip arthroplasty Left s/p knee replacement Bilateral FAMILY HISTORY: Family History Problem Relation Age of Onset Peripheral Vascular Disease Mother Coronary Artery Disease Father of [place] age 52 Deep Vein Thrombosis Sister SOCIAL HISTORY: Social History Socioeconomic History Marital status: Spouse name: None Number of children: None Years of education: None Highest education level: None Tobacco Use Smoking status: Never Smokeless tobacco: Never Substance and Sexual Activity Alcohol use: Yes Comment: 1-2 per day Drug use: Never Review of Systems: Skin: not assessed Eyes: not assessed ENT: not assessed Respiratory: Negative Cardiovascular: Positive for;edema;fatigue Gastroenterology: not assessed Genitourinary: not assessed Musculoskeletal: not assessed Neurologic: not assessed Psychiatric: not assessed Heme/Lymph/Imm: not assessed Endocrine: not assessed Physical Exam: Vitals: BP 120/74 (BP Location: Right arm, Patient Position: Sitting, Cuff Size: Adult Regular) Pulse 76 Ht 1.753 m (5' 9) Wt 106.5 kg (234 lb 12.8 oz) BMI 34.67 kg/m?? Constitutional: cooperative;in no acute distress Skin: warm and dry to the touch Head: normocephalic Eyes: pupils equal and round Lymph: ENT: no pallor or cyanosis Neck: delayed carotid upstroke Respiratory: clear to auscultation Cardiac: irregular rhythm distant heart sounds no presence of murmur pulses below the femoral arteries are diminished GI: abdomen soft Extremities and Muscular Skeletal: no deformities, clubbing, cyanosis, erythema observed varicose vein Neurological: no gross motor deficits Psych: Alert and Oriented x 3 Recent Lab Results: LIPID RESULTS: Lab Results Component Value Date CHOL 157 08/31/2023 HDL 64 08/31/2023 LDL 75 08/31/2023 TRIG 92 08/31/2023 LIVER ENZYME RESULTS: Lab Results Component Value Date AST 12 08/31/2023 ALT 16 08/31/2023 CBC RESULTS: Lab Results Component Value Date WBC 8.2 08/31/2023 RBC 4.84 08/31/2023 HGB 15.0 08/31/2023 HGB 11.5 (L) 04/04/2006 HCT 45.8 08/31/2023 MCV 95 08/31/2023 MCH 31.0 08/31/2023 MCHC 32.8 08/31/2023 RDW 13.8 08/31/2023 PLT 214 08/31/2023 PLT 175 04/04/2006 BMP RESULTS: Lab Results Component Value Date NA 138 08/31/2023 NA 140 04/01/2006 POTASSIUM 4.4 08/31/2023 POTASSIUM 3.8 04/01/2006 CHLORIDE 104 08/31/2023 CHLORIDE 106 04/01/2006 CO2 26 08/31/2023 CO2 27 04/01/2006 ANIONGAP 8 08/31/2023 ANIONGAP 7 04/01/2006 GLC 104 (H) 08/31/2023 GLC 92 04/01/2006 BUN 13.9 08/31/2023 BUN 13 04/01/2006 CR 0.78 08/31/2023 CR 0.91 04/01/2006 GFRESTIMATED >90 08/31/2023 GFRESTIMATED >90 04/01/2006 GFRESTBLACK >90 04/01/2006 DIOGENES 9.4 08/31/2023 DIOGENES 9.5 04/01/2006 A1C RESULTS: No results found for: A1C INR RESULTS: Lab Results Component Value Date INR 0.94 04/01/2006 CC Ana Brewer MD [address] [place] [id number] documented in this encounter Plan of Treatment Not on file documented as of this encounter Results * NM Lexiscan stress test (nuc [...] rest on 09/26/2023. Nuclear Study Quality The quality assurance engineer images demonstrate diaphragmatic attenuation. Final image quality [...] Rola Kumari DO IMG NM MEIR LAINEZ documented in this encounter Visit Diagnoses Diagnosis Paroxysmal ventricular tachycardia (H)- Primary Paroxysmal ventricular tachycardia Ventricular tachycardia (H) Paroxysmal ventricular tachycardia Family history of ischemic heart disease Personal history of tobacco use, presenting hazards to health Ventricular tachycardia (H) Paroxysmal ventricular tachycardia Paroxysmal ventricular tachycardia (H) Paroxysmal ventricular tachycardia Family history of ischemic heart disease Personal history of tobacco use, presenting hazards to health documented in this encounter Care Teams Hold Worker Relationship Specialty Start Date End Date Chester Schumacher PA-C [address] [place] [address] PCP - General 08/29/23 Ana Brewer MD [address] [place] [id number] Assigned Heart and Vascular Provider 09/11/23 Rola Kumari DO [address] [place] [id number] Physician Cardiovascular Disease 09/18/23 documented as of this encounter
--- OUTSIDE RECORDS SUMMARY | 2023-10-02 10:30 | XMS_ITS | Encounter Summary ---
Author Organization [place] Address [address] [place] [address] Care Team Providers Care Mica Inspector Name Role Phone Chester Schumacher PA-C Primary Care Provider [phone] Ana Brewer MD Unavailable + [phone] Rola Kumari DO Unavailable +[phone] Encounter Details Date Type Department Care Team (Latest Contact Info) Description 09/26/2023 Travel Social History Tobacco Use Types Packs/Day Years [...] on file documented as of this encounter Plan of Treatment Not on file documented as of this encounter Visit Diagnoses Not on filedocumented in this encounter Care Teams Mica Inspector Relationship Specialty Start Date End Date Chester Schumacher PA-C [address] [place] [address] PCP - General 08/29/23 Ana Brewer MD [address] [facility] [address] [place] [address] Assigned Heart and Vascular Provider 09/11/23 Rola Kumari DO [address] [place] [address] Physician Cardiovascular Disease 09/18/23 documented as of this encounter
--- OUTSIDE RECORDS SUMMARY | 2023-10-02 10:30 | XMS_ITS | Encounter Summary ---
Author Organization [place] Address [address] [place] [address] Care Team Providers Care Wheat Inspector Name Role Phone Chester Schumacher PA-C Primary Care Provider [phone] Ana Brewer MD Unavailable + [phone] Rola Kumari DO Unavailable +[phone] Reason for Visit * Diagnostic Imaging NM (Routine) - Authorized Specialty Diagnoses / Procedures Referred By Contac t Referred To Contact Radiology. Diagnoses Ventricular tachycardia (H) Paroxysmal ventricular tachycardia (H) Family history of ischemic heart disease Personal history of tobacco use, presenting hazards to health Procedures NM Lexiscan stress test (nuc card) Rola Kumari DO [address] [place] [address] Nuclear Medicine [address] [place] [address] Referral ID Status Reason Start Date Expiration Date V isits Requested Visits Authorized [id number] Authorized 09/21/2023 09/20/2024 5 5 Encounter Details Date Type Department Care Team (Late st Contact Info) Description 09/26/2023 8:51 AM CDT Hospital Encounter [facility] [address] [place] [address] Rola Kumari DO [address] [place] [address] Discharge Disposition: Home or Self Care Social History Tobacco Use Types Packs/Day Years [...] on file documented as of this encounter Medications at Time of Discharge Medication Sig Dispensed Refills Start Date End Date ASPIRIN LOW DOSE 81 MG chewable tablet Take 81 mg by mouth daily metoprolol succinate ER (TOPROL XL) 25 MG 24 hr tabletIndications:Ventric ular tachycardia (H),Family history of ischemic heart disease Take 1 tablet (25 mg) by mouth daily 30 tablet 11 09/21/2023 Multiple Vitamin (MULTIVITAMIN ADULT PO) Take by mouth daily simvastatin (ZOCOR) 20 MG tablet Take 20 mg by mouth daily documented as of this encounter Plan of Treatment Not on file documented as of this encounter Procedures Procedure Name Priority Date/Time Associated Diagnosis Comments NM MPI WITH LEXISCAN Routine 09/26/2023 11:01 AM CDT Ventricular tachycardia (H) Paroxysmal ventricular tachycardia (H) Family history of ischemic heart disease Personal history of tobacco use, presenting hazards to health documented in this encounter Results * NM Lexiscan stress [...] 09/26/2023. Nuclear Study Quality The quality assurance auditor images demonstrate diaphragmatic attenuation. Final image quality [...] left ventricular wall motion is normal. Rola Aida Kumari DO [facility] documented in this encounter Visit Diagnoses Not on filedocumented in this encounter Care Teams Wheat Inspector Relationship Specialty Start Date End Date Chester Schumacher PA-C [facility] [address] [place] [address] [place] [address] PCP - General 08/29/23 Ana Brewer MD [address] [place] [address] Assigned Heart and Vascular Provider 09/11/23 Rola Kumari DO [address] [place] [id number] Physician Cardiovascular Disease 09/18/23 documented as of this encounter
--- OUTSIDE RECORDS SUMMARY | 2023-10-02 10:30 | XMS_ITS | Encounter Summary ---
Author Organization [place] Address [address] [place] [address] Care Team Providers Care Janitor Caretaker Name Role Phone Chester Schumacher PA-C Primary Care Provider [phone] Ana rBewer MD Unavailable + [phone] Rola Kumari DO Unavailable +[phone] Encounter Details Date Type Department Care Team (Latest Contact Info) Description 09/20/2023 Travel Social History Tobacco Use Types Packs/Day Years Used Date Smoking Tobacco: Never Smokeless Tobacco: Never Alcohol Use Standard Drinks/Week Comments Yes 0 (1 standard drink = 0.6 oz pur e alcohol) PHQ-2 Answer Date Recorded PHQ-2 Score 0 [...] on filedocumented in this encounter Care Teams Janitor Caretaker Relationship Specialty Start Date End Date Chester Schumacher PA-C [place] [address] [place] [address] PCP - General 08/29/23 Ana Brewer MD [address] [facility] [address] [place] [address] Assigned Heart and Vascular Provider 09/11/23 Rola Kumari DO [address] [place] [address] Physician Cardiovascular Disease 09/18/23 documented as of this encounter
--- OUTSIDE RECORDS SUMMARY | 2023-10-02 10:30 | XMS_ITS | Encounter Summary ---
Author Organization [place] Address [facility] [place] [address] Care Team Providers Care Logging Equipment Mechanic Name Role Phone Chester Schumacher PA-C Primary Care Provider [phone] Ana Brewer MD Unavailable + [phone] Rola Kumari DO Unavailable +[phone] Reason for Referral * Diagnostic Imaging NM (Routine) - Authorized Specialty Diagnoses / Procedures Referred By Contac t Referred To Contact Radiology. Diagnoses Ventricular tachycardia (H) Paroxysmal ventricular tachycardia (H) Family history of ischemic heart disease Personal history of tobacco use, presenting hazards to health Procedures NM Lexiscan stress test (nuc card) Rola Kumari DO [address] [facility] [address] [place] [address] Nuclear Medicine [address] [facility] [place] [address] Referral ID Status Reason Start Date Expiration Date V isits Requested Visits Authorized [id number] Authorized 09/21/2023 09/20/2024 5 5 Reason for Visit * Diagnostic Imaging NM (Routine) - Authorized Specialty Diagnoses / Procedures Referred By Contac t Referred To Contact Radiology. Diagnoses Ventricular tachycardia (H) Paroxysmal ventricular tachycardia (H) Family history of ischemic heart disease Personal history of tobacco use, presenting hazards to health Procedures NM Lexiscan stress test (nuc card) Rola Kumari, [address] [place] [address] Nuclear Medicine [address] [place] [address] Referral ID Status Reason Start Date Expiration Date V isits Requested Visits Authorized [id number] Authorized 09/21/2023 09/20/2024 5 5 Encounter Details Date Type Department Care Team (Late st Contact Info) Description 09/26/2023 8:50 AM CDT Hospital Encounter [facility] [address] [place] [address] Steviemavis Rola Aida, DO [address] [place] [id number] Ventricular tachycardia (H); Paroxysmal ventricular tachycardia (H); Family history of ischemic heart disease; Personal history of tobacco use, presenting hazards to health Discharge Disposition: Home or Self Care Social [...] rest on 09/26/2023. Nuclear Study Quality The air quality engineer images demonstrate diaphragmatic attenuation. Final image [...] documented in this encounter Visit Diagnoses Diagnosis Ventricular tachycardia (H) Paroxysmal ventricular tachycardia Paroxysmal ventricular tachycardia (H) Paroxysmal ventricular tachycardia Family history of ischemic heart disease Personal history of tobacco use, presenting hazards to health documented in this encounter Administered Medications Inactive Administered Medications - up to 3 most recent administrations Medication Order MAR Action Action Date Dose Rate Site regadenoson (LEXISCAN) injection 0.4 mg 0.4 mg, Intravenous, ONCE, On Sun09/26/23 at 0800, For 1 dose, Give by rapid IV injection (approximately over 10-15 seconds). Follow with a saline flush immediately after regadenoson administration, then follow with radioactive tracer (radiopharmaceutical agent). $Given 09/26/2023 10:55 AM CDT 0.4 mg sodium chloride (PF) 0.9% PF flush 10 mL 10 mL, Intravenous, EVERY 1 HOUR PRN, line flush, post meds or blood draw, Starting on Sun09/26/23 at 0755, for peripheral IV flush post IV meds, Cardiac Intra-procedure $Given 09/26/2023 10:55 AM CDT 10 mLs sodium chloride (PF) 0.9% PF flush 10 mL 10 mL, Intravenous, ONCE, On Sun09/26/23 at 0930, For 1 dose $Given 09/26/2023 9:29 AM CDT 10 mLs technetium Tc 99m tetrofosmin 2UD study (MYOVIEW) radioisotope injection 3-42 millicurie 3-42 millicurie, Intravenous, EVERY 2 HOURS, First dose on Sun09/26/23 at 0930, For 2 doses, Radioisotope, supplied by and administered by Nuclear Medicine. *HW* $Given 09/26/2023 10:59 AM CDT 18.52 millicuries $Given 09/26/2023 9:30 AM CDT 5.92 millicuries documented in this encounter Care Teams Logging Equipment Mechanic Relationship Specialty Start Date End Date Chester Schumacher PA-C [address] [place] [address] PCP - General 08/29/23 Ana Brewer MD [address] [place] [id number] Assigned Heart and Vascular Provider 09/11/23 Rola Kumari DO [address] [place] [address] Physician Cardiovascular Disease 09/18/23 documented as of this encounter
--- OUTSIDE RECORDS SUMMARY | 2023-10-02 10:30 | XMS_ITS | Encounter Summary ---
Author Organization [place] Address [address] [place] [address] Care Team Providers Care Quality Assurance Assistant Name Role Phone Chester Schumacher PA-C Primary Care Provider [phone] Ana Brewer MD Unavailable + [phone] Rola Kumari DO Unavailable [phone] Reason for Referral * Diagnostic Imaging Ultrasound (Routine) - Pending Review Specialty Diagnoses / Procedures Referred By Contac t Referred To Contact Radiology. Diagnoses Popliteal artery aneurysm (H24) Procedures US Lower Extremity Arterial Duplex Right Pablo Pierce MD [address] [place] [address] Referral ID Status Reason Start Date Expiration Date V isits Requested Visits Authorized [id number] Pending Review 09/21/2023 09/20/2024 1 1 * Diagnostic Imaging Ultrasound (Routine) - Pending Review Specialty Diagnoses / Procedures Referred By Contac t Referred To Contact Radiology. Diagnoses Infrarenal abdominal aortic aneurysm (AAA) without rupture (H24) Ectasia of artery (H24) Procedures US Aorta/Ivc/Iliac Duplex Complete Pablo Pierce MD [address] [place] [address] Referral ID Status Reason Start Date Expiration Date V isits Requested Visits Authorized [id number] Pending Review 09/21/2023 09/20/2024 1 1 Reason for Visit * Reason Comments Consult Referral from Dr. 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 [place] [address] Referral ID Status Reason Start Date Expiration Date V isits Requested Visits Authorized [id number] Pending Review 09/18/2023 09/17/2024 3 3 Encounter Details Date Type Department Care Team (Late st Contact Info) Description 09/20/2023 3:30 PM CDT Office Visit [facility] [place] [address] [place] [id number] Pablo Pierce MD [address] [place] [id number] Infrarenal abdominal aortic aneurysm (AAA) without rupture (H24) 4.2 cm on US 07/2023 [facility]; 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 july 2023 US; Distal Superficial Femoral artery occlusion, left (H24); Popliteal artery occlusion, left (H24); 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 Social History Tobacco Use Types Packs/Day Years [...] Sign Reading Time Taken Comments Blood Pressure 119/76 09/20/2023 3:43 PM CDT Pulse 52 09/20/2023 3:44 PM CDT Temperature - - Respiratory Rate - - Oxygen Saturation - - Inhaled Oxygen Concentration - - Weight - - Height - - Body Mass Index - - documented in this encounter Progress Notes * Pablo Pierce MD - 09/20/2023 3:30 PM CDT Images from the original note were not included. [facility] Rodri Kirkland has been followed by Dr. Brewer for his multiple vascular issues. History of 4.2 cm infrarenal AAA. -- 09/05/2023 arterial duplex: Right popliteal measures 0.9 cm with some mild luminal irregularity. Left distal SFA occluded as is popliteal artery. --04/24/2008 CTA: Occluded left popliteal artery with three-vessel runoff. Noted 1.1 cm thrombosed popliteal aneurysm. [id number] renal arteries widely patent. No right popliteal aneurysm. Mild disease within the right WORKFORCE ANALYST. Three- vessel runoff. --CTA: Stable 4.2 cm infrarenal AAA. Ectasia of the iliac arteries-right= 1.7cm. Left= 1.6 cm. Right popliteal aneurysm measuring 2.2 x 1.8 cm. Chronic left distal SFA and popliteal occlusion. PMH: Medications: Zocor, aspirin Medical: Hyperlipidemia History of bladder cancer Degenerative arthritis planning right hip surgery 09/25/2023 Zio patch with a few episodes of ventricular tachycardia and supraventricular tachycardia with bigeminy and trigeminy but no A-fib. Former smoker ROS: Primary concern is his degenerative arthritis. Underwent previous right total knee arthroplasty left total hip arthroplasty with excellent results. Last year he underwent a left total knee replacement. He did have some numbness around the knee following the last surgery which has resolved. Hashad some chronic swelling. Has severe degenerative arthritis and pain in his right hip and is scheduled to undergo right hip replacement on 09/25/2023 and wanted to know if this can proceed with his vascular issues. He has had no claudication symptoms no rest pain or poorly healing sores on either leg. His ambulation is limited by his hip issues and knee issues. He does ride a bicycle with he and his on a regular basis and does well with this. 08/31/2023 laboratory: SCr= 0.7 LDL= 75 HDL= 64 glucose= 104 Hgb= 15.0 albumin= 4.0 Exam: Alert and appropriate. Very pleasant. Here with his . Blood pressure 119/76 left arm. Pulse 69. Larger patient with weight= 107 kg HEENT= unremarkable Chest= clear Cardiovascular= slightly irregular rate Extremities= well-healed bilateral knee replacement incisions. Mild left greater than right calf and ankle swelling. Normal sensation. Good footcare with no lesions or calluses Nonpalpable pedal pulses. Bedside Doppler with strong biphasic signal in right posterior tibial and more monophasic AT. Strong monophasic left AT with weaker PT signals. I reviewed the CTA of the chest and abdomen and runoff with the patient and his . Mild arch calcified plaque with no stenosis nor aneurysms of the thoracic ascending and descending aorta. No significant disease within the ehpqnu-FYT-[id number] arteries except for mild plaque. 4.2 cm infrarenal AAA with wall thrombus. Ectasia of the iliac arteries with no stenosis. -- Right leg: Diffuse mild disease within the femoral arteries. At the level of the knee joint there is the 2.2 cm focal popliteal artery aneurysm with wall thrombus. Mild distal popliteal disease with three-vessel runoff that is mild disease. -- Left leg: Mild diffuse disease within femoral arteries. Distal SFA and popliteal artery occludedwith previously known small thrombosed aneurysm. Distal popliteal disease but patent with diseased three-vessel runoff. IMPRESSION: #1. 4.2 cm infrarenal AAA with wall thrombus which in itself is not a concern. We would not recommend surgical repair of an aneurysm at this size but yearly follow-up is indicated to see if there is an expansion of the aneurysm which would warrant further evaluation. Would potentially be a candidate for an endovascular repair if needed but the aneurysm usually are greater than 5.5 cm before surgery is indicated even with the endovascular technique. #2. Occluded left distal SFA and above-knee and mid popliteal artery perhaps from aneurysmal disease. 1 can see a large collateral on the CTA. Clinically he has very adequate blood supply to the leftleg with good Doppler signals and no symptoms. Thus, no surgical interventions indicated for a bypass procedure and this has been discussed at length. #3. 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 Concerns of aneurysm at this location are distal embolization and eventual thrombosis which could lead to limb loss. This is the size where we consider surgical repair and this has been discussed at length. The biggest question is whether surgical repair is indicated. Is not aware of the popliteal aneurysm to recently and it may have been there for many years but was not noted in the 2008 CTA. Surgical repair is a reasonable option. If this is performed likely would be done via posterior approach which allows good exposure andallow for placement of interposition graft to correct the problem. Perhaps slightly more difficult due to the more diffuse atherosclerotic disease. #4. No contraindications with the right popliteal artery aneurysm and AAA about proceeding with theright hip replacement surgery this coming week. He and his will have to decide about surgical intervention of the right popliteal artery aneurysm following the recovery from his hip surgery. If he decides against this would recommend routine follow-up along with the AAA at least on a yearly basis. Over 45 minutes with patient and today including chart review. Pablo Pierce MD This note was created using [employer] voice recognition software which may result in rehabilitation counselor errors. Shaina Clayton - 09/20/2023 3:30 PM CDT [facility] Patient is here for a consult to discuss Abdominal aortic aneurysm (AAA). Pt is currently taking Aspirin. BP 119/76 (BP Location: Left arm, Patient Position: Chair, Cuff Size: Adult Regular) Pulse 52 The provider has been notified that the patient has no concerns. Questions patient would like addressed today are: N/A. Refills are needed: N/A Has homecare services and agency name: Ibis Sharp MA documented in this encounter Plan of Treatment Scheduled Orders Name Type Priority Associated Diagnoses Orde r Schedule US Aorta/Ivc/Iliac Duplex Complete Imaging Routine Infrarenal abdominal aortic aneurysm (AAA) without rupture (H24) 4.2 cm on US 07/2023 [facility] 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 july 2023 US Expected: 09/20/2024 (Approximate), Expires: 09/20/2024 US Lower Extremity Arterial Duplex Right Imaging Routine 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 Expected: 09/20/2024 (Approximate), Expires: 09/20/2024 documented as of this encounter Visit Diagnoses Diagnosis Infrarenal abdominal aortic aneurysm (AAA) without rupture (H24) 4.2 cm on US 07/2023 [facility] 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 july 2023 US Distal Superficial Femoral artery occlusion, left (H24) Embolism and thrombosis of unspecified artery Popliteal artery occlusion, left (H24) Embolism and thrombosis of arteries of lower extremity 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 Aneurysm of artery of lower extremity documented in this encounter Care Teams Quality Assurance Assistant Relationship Specialty Start Date End Date Chester Schumacher PA-C [facility] [address] [facility] [place] [address] PCP - General 08/29/23 Ana Brewer MD [address] [place] [address] Assigned Heart and Vascular Provider 09/11/23 Rola Kumari DO [address] [place] [address] Physician Cardiovascular Disease 09/18/23 documented as of this encounter
--- OUTSIDE RECORDS SUMMARY | 2023-10-02 10:30 | XMS_ITS | Encounter Summary ---
Author Organization [place] Address [address] [facility] [place] [address] Care Team Providers Care Pick And Shovel Worker Name Role Phone Chester Schumacher PA-C Primary Care Provider [phone] Ana Brewer MD Unavailable + [phone] Rola Kumari DO Unavailable [phone] Encounter Details Date Type Department Care Team (Late st Contact Info) Description 09/27/2023 [facility] Medical Advice [facility] [place] [address] [facility] [address] [place] [address] Rola Kumari DO [address] [facility] [address] [place], [place] [address] Social History Tobacco Use Types Packs/Day Years [...] on filedocumented in this encounter Care Teams Pick And Shovel Worker Relationship Specialty Start Date End Date Chester Schumacher PA-C [facility] [address] [place] [address] PCP - General 08/29/23 Ana Brewer MD [address] [place] [address] Assigned Heart and Vascular Provider 09/11/23 Rola Kumari DO [address] [place] [address] Physician Cardiovascular Disease 09/18/23 documented as of this encounter
--- OUTSIDE RECORDS SUMMARY | 2023-10-02 10:30 | XMS_ITS | Encounter Summary ---
Author Organization [place] Address [address] [place] [address] Care Team Providers Care Medical Radiation Tech Name Role Phone Chester Schumacher PA-C Primary Care Provider [phone] Ana Brewer MD Unavailable + [phone] Rola Kumari DO Unavailable [phone] Reason for Visit * Diagnostic Imaging NM (Routine) - Authorized Specialty Diagnoses / Procedures Referred By Contac t Referred To Contact Radiology. Diagnoses Ventricular tachycardia (H) Paroxysmal ventricular tachycardia (H) Family history of ischemic heart disease Personal history of tobacco use, presenting hazards to health Procedures NM Lexiscan stress test (nuc card) Rola Kumari DO [address] [place] [address] Nuclear Medicine [address] [place] [address] Referral ID Status Reason Start Date Expiration Date V isits Requested Visits Authorized [id number] Authorized 09/21/2023 09/20/2024 5 5 Encounter Details Date Type Department Care Team (Late st Contact Info) Description 09/26/2023 8:52 AM CDT - 09/26/2023 11:59 PM CDT Hospital Encounter [facility] [address] [facility] [address] [place] [address] Rola Kumari DO [address] [place] [address] Discharge Disposition: Home or Self Care Social [...] on 09/26/2023. Nuclear Study Quality The quality management coordinator images demonstrate diaphragmatic attenuation. Final image quality [...] motion is normal. Rola Aida Kumari DO [facility] LAINEZ documented in this encounter Visit Diagnoses Not on filedocumented in this encounter Care Teams Medical Radiation Tech Relationship Specialty Start Date End Date Chester Schumacher PA-C [place] [address] [place] [address] PCP - General 08/29/23 Ana Brewer MD [address] [place] [address] Assigned Heart and Vascular Provider 09/11/23 Rola Kumari DO [address] [place] [address] Physician Cardiovascular Disease 09/18/23 documented as of this encounter
--- OUTSIDE RECORDS SUMMARY | 2023-10-02 10:30 | XMS_ITS | Clinical Summary ---
Author Organization [place] Address [facility] [place] [address] Care Team Providers Care Clean Out Driller Helper Name Role Phone Chester Schumacher PA-C Primary Care Provider [phone] Ania Brewer MD Unavailable + [phone] Rola Kumari DO Unavailable [phone] Allergies No known active allergies Medications Medication [...] Active Active Problems No known active problems Encounters Date Type Department Care Team Description 10/01/2023 Telephone [facility] [address] [place] [address] Rola Kumari DO Call Back (Surgery clerance) 09/27/2023 MyC Medical Advice [facility] [address] [facility] [address] [place] [address] Rola Kumari DO 09/26/2023 8:52 AM CDT - 09/26/2023 11:59 PM CDT Hospital Encounter [facility] [address] [place] [phone] Rola Kumari DO Discharge Disposition: Home or Self Care 09/26/2023 8:52 AM CDT - 09/26/2023 11:59 PM CDT Hospital Encounter [facility] [address] [place] [phone] Rola Kumari DO Discharge Disposition: Home or Self Care 09/26/2023 8:51 AM CDT Hospital Encounter [facility] [address] [place] [phone] Rola Kumari DO Discharge Disposition: Home or Self Care 09/26/2023 8:50 AM CDT Hospital Encounter [facility] [address] [place] [phone] Rola Kumari DO Ventricular tachycardia (H); Paroxysmal ventricular tachycardia (H); Family history of ischemic heart disease; Personal history of tobacco use, presenting hazards to health Discharge Disposition: Home or Self Care 09/26/2023 Travel 09/21/2023 8:45 AM CDT Office Visit [facility] [address] [place] [phone] Ania Brewer MD Dankle, Constance Jennifer, DO Paroxysmal ventricular tachycardia (H) (Primary Dx); Ventricular tachycardia (H); Family history of ischemic heart disease; Personal history of tobacco use, presenting hazards to health 09/20/2023 3:30 PM CDT Office Visit [facility] [place] [address] [facility] [address] [place] [phone] Pablo Pierce MD Infrarenal abdominal aortic aneurysm (AAA) without rupture (H24) 4.2 cm on US 07/2023 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 july 2023 US; Primary osteoarthritis of right hip; Former smoker; Hyperlipidemia LDL goal <70; Osteoarthritis of lumbar spine, unspecified spinal osteoarthritis complication status 09/18/2023 Travel 09/10/2023 External Order Results [facility] [address] [place] [phone] Outside, Provider 09/06/2023 9:30 AM CDT Allied Health/Nurse Visit [facility] [address] [place] [phone] Ania Brewer MD Nurse Visit 09/06/2023 Orders Only [address] [place] [phone] Ania Brewer MD Bradycardia (Primary Dx); PVC's (premature ventricular contractions) 09/05/2023 10:00 AM CDT Ancillary Procedure [facility] [address] 2[address] [place] [phone] Ania Brewer MD Bradycardia; PVC's (premature ventricular contractions) 09/05/2023 7:30 AM CDT - 09/05/2023 11:59 PM CDT Hospital Encounter [facility] 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 [address] [place] [phone] Ania Brewer MD Infrarenal abdominal aortic aneurysm (AAA) without rupture (H24) 4.2 cm on US 07/2023 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 08/31/2023 Travel 08/29/2023 12:00 PM CDT Office Visit [facility] [address] [place] [phone] Ania Brewer MD Infrarenal abdominal aortic aneurysm (AAA) without rupture (H24) 4.2 cm on US 07/2023 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 july 2023 US; Former smoker; Hyperlipidemia LDL goal <70; Bradycardia; Osteoarthritis of lumbar spine, unspecified spinal osteoarthritis complication status; PVC's (premature ventricular contractions) 08/29/2023 Travel 08/01/2023 Telephone [facility] [address] [place] [phone] Nurse, [facility] Referral (Pt referred to [facility] by Chester Schumacher PA-C for 4.2 cm AAA) 07/24/2023 Medical Correspondence [facility] Info Mgmt [facility] [address] [phone] Scan, Non-Provider from Last 3 Months Family History Medical History Relation Comments Coronary Artery Disease Father of [place] age 52 Peripheral Vascular Disease Mother Deep Vein Thrombosis Sister Relation Status Comments Father Mother Sister Social History Tobacco Use Types Packs/Day Years [...] 09/26/2023 9:00 AM CDT Plan of Treatment Health Maintenance Due Date Last Done Comments ADVANCE CARE PLANNING 1945 ANNUAL REVIEW OF HM ORDERS 1945 HEPATITIS C SCREENING 04/26/1965 RSV VACCINE ( & 60+) (1 - 1-dose 60+ series) 2007 FALL RISK ASSESSMENT 04/26/2012 MEDICARE ANNUAL WELLNESS VISIT 04/26/2012 COVID-19 Vaccine ( season) 2023 12/27/2022, 11/30/2021, 06/16/2021, Additional history exists INFLUENZA VACCINE (#1) 2023 3, 11/30/2021, 11/30/2021, Additional history exists LIPID 08/30/2024 08/31/2023 DTAP/TDAP/TD IMMUNIZATION (2 - Td or Tdap) 02/09/2026 02/10/2016, 02/10/2016 GLUCOSE 08/30/2026 08/31/2023, 04/01/2006 Pneumococcal Vaccine: 65+ Years Completed 03/08/2017, 02/10/2016 ZOSTER IMMUNIZATION Completed 10/19/2020, 10/06/2020, 09/28/2018 PHQ-2 (once per calendar year) Completed 09/06/2023 HPV IMMUNIZATION Aged Out No longer e ligible based on patient's age to complete this topic IPV IMMUNIZATION Aged Out No longer e ligible based on patient's age to complete this topic MENINGITIS IMMUNIZATION Aged Out No l onger eligible based on patient's age to complete this topic RSV MONOCLONAL ANTIBODY Aged Out No l onger eligible based on patient's age to complete this topic Procedures Procedure Name Priority Date/Time Associated Diagnosis [...] rupture (H24) 4.2 cm on US 07/2023 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 CBC WITH PLATELETS AND DIFFERENTIAL Routine 08/31/2023 8:58 AM CDT Infrarenal abdominal aortic aneurysm (AAA) without rupture (H24) 4.2 cm on US 07/2023 [facility] LIPID REFLEX TO DIRECT LDL PANEL Routine [...] on 09/26/2023. Nuclear Study Quality The quality measurement specialist images demonstrate diaphragmatic attenuation. Final image quality [...] ventricular wall motion is normal. Rola Aida Quoc DO IMG NM MEIR LAINEZ * ZIO [...] reported. Ania Brewer MD CV CARDIAC S KENNETH ORDERABLES * (ABNORMAL) UA with Microscopic (09/10/2023 9:40 AM CDT) Color Urine (External) Yellow Yellow NON-INTERFAC ED (ONBASE SCANS) Appearance Urine (External) Slightly cloudy(A) Clear NON-INTERFAC ED (ONBASE SCANS) Glucose Urine (External) Negative Negative NON-INTERFAC ED (ONBASE SCANS) Bilirubin Urine (External) Negative Negative NON-INTERFAC ED (ONBASE SCANS) Ketones Urine (External) Negative Negative NON-INTERFAC ED (ONBASE SCANS) Specific [place] Urine (External) 1.015 1.000 - 1.030 NON-INTERFAC [...] Acosta MD LAB - URINE ORDERABL ES BREEZE PFT NON-INTERFACED (ONBASE SCANS) * Lab Result [...] AM CDT Narrative 09/05/2023 1:58 PM CDT [id number]^OSMAN^ANIA^NABIL [facility], Echocardiography Laboratory [address] [place] [address] Name: RODRI KIRKLAND : 1945 Study Date: 09/05/2023 09:51 AM Age: 78 yrs Gender: Male Patient Location: [facility] Reason For Study: Bradycardia, PVC's (premature ventricular contractions) Ordering Physician: ANIA BREWER Referring Physician: ANIA BREWER Performed By: Reina Lira RDCS BSA: 2.2 m2 Height: 69 in Weight: 238 lb BP: 121/79 mmHg Procedure Echocardiogram with two-dimensional, color and spectral Doppler performed. Contrast Optison. Technically difficult study.Extremely poor acoustic windows. Limited information was obtained during study. Optison ([facility] #[id number]) given intravenously. Patient was given 5 ml [...] Procedure Note Crys Marin MD - 09/05/2023 [id number]^OSMAN^ANIA^NABIL [facility], Echocardiography Laboratory [address] [place] [address] Name: RODRI KIRKLAND : 1945 Study Date: 09/05/2023 09:51 AM Age: 78 yrs Gender: Male Patient Location: [facility] Reason For Study: Bradycardia, PVC's (premature ventricularcontractions) Ordering Physician: ANIA BREWER Referring Physician: ANIA BREWER Performed By: Reina Lira RDCS BSA: 2.2 m2 Height: 69 in Weight: 238 lb BP: 121/79 mmHg Procedure Echocardiogram with two-dimensional, color and spectral Dopplerperformed. Contrast Optison. Technically difficult study.Extremely poor acousticwindows. Limited information was obtained during study. Optison ([facility]#[id number]) given intravenously. 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 Mild luminal irregularity at level of aneurysm. Larger distal SFA aneurysm as seen on CTA not noted on duplex. 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 Mild luminal irregularity at level of aneurysm. Larger distal SFA aneurysm as seen on CTA not noted on duplex. LEFT PRIVACY OFFICER: 118 PFA: 127 SFA prox: 67 SFA [...] Anatomical Region Laterality Modality Abdomen/Pelvis, SUBRAD IR MI ZAIDA, UMP CT CTA, RAD CT Computed [...] left above-knee popliteal artery. KENDALL MULLIGAN MD Aggieisrael Head Osman ROUSSEAU IMG CT ORDER JAE * CBC with [...] Ania Brewer MD LAB - BLOOD ORDERABLES [facility] [address] [facility] Lab (no room number, 1st floor of clinic) [place] [address], [facility] [phone] * TSH with free T4 reflex (08/31/2023 8:58 AM CDT) TSH 2.62 0.30 - 4.20 uIU/mL 08/31/2023 11:41 PM CDT [facility] Blood BLOOD SPECIMEN / Unknown Venipuncture / Unknown 08/31/2023 8:58 AM CDT 08/31/2023 8:58 AM CDT Ania Brewer MD LAB - BLOOD ORDERABLES [facility] [place] [facility] [address] [facility], [address] [place] [address], [facility] * Magnesium (08/31/2023 8:58 AM CDT) Magnesium 2.1 1.7 - 2.3 mg/dL 08/31/2023 11:41 PM CDT [facility] Blood BLOOD SPECIMEN / Unknown Venipuncture / Unknown 08/31/2023 8:58 AM CDT 08/31/2023 8:58 AM CDT Ania Brewer MD LAB - BLOOD ORDERABLES [facility] [place] [facility] [address] [facility], [address] [place] [address] * Lipid panel reflex to direct LDL [...] MD LAB - BLOOD ORDERABLES [facility] [place] [facility] [address] [facility], [address] [place] [address] * (ABNORMAL) Comprehensive metabolic panel (08/31/2023 8:58 [...] PM CDT [facility] Comment:eGFR calculated usin 2020 CKD-EPI equation. Calcium 9.4 8.8 - [...] MD LAB - BLOOD ORDERABLES [facility] [place] [facility] [address] [facility], [address] [place] [address] * EKG 12-lead complete w/read - Clinics (08/29/2023) Ania Brewre MD ECG ORDERABL ES * US Vascular - HIM Scan (07/24/2023 12:00 AM CDT) Anatomical Region Laterality Modality Other 07/24/2023 Provider Outside [facility] US ORDERABLES from Last 3 Months Care Teams Clean Out Driller Helper Relationship Specialty Start Date End Date Chester Schumacher PA-C [facility] [address] [place], [place] [id number] PCP - General 08/29/23 Ania Brewer MD [address] [place] [id number] Assigned Heart and Vascular Provider 09/11/23 Rola Kumari DO [address] [place] [id number] Physician Cardiovascular Disease 09/18/23
--- OUTSIDE RECORDS SUMMARY | 2023-10-02 10:30 | XMS_ITS | Encounter Summary ---
Author Organization [place] Address [address] [place] [address] Care Team Providers Care Men'S Designer Name Role Phone Chester Schumacher PA-C Primary Care Provider [phone] Ana Brewer MD Unavailable + [phone] Rola Kumari DO Unavailable [phone] Encounter Details Date Type Department Care Team (Latest Contact Info) Description 09/18/2023 Travel Social History Tobacco Use Types Packs/Day [...] on filedocumented in this encounter Care Teams Men'S Designer Relationship Specialty Start Date End Date Chester Schumacher PA-C [place] [address] [place] [address] PCP - General 08/29/23 Ana Brewer MD [address] [facility] [address] [place] [address] Assigned Heart and Vascular Provider 09/11/23 Rola Kumari DO [address] [place] [address] Physician Cardiovascular Disease 09/18/23 documented as of this encounter
--- OUTSIDE RECORDS SUMMARY | 2023-10-02 10:30 | XMS_ITS | Encounter Summary ---
Author Organization [place] Address [address] [facility] [place] [address] Care Team Providers Care Sawmill Tally Clerk Name Role Phone Filiberto Schumachermadhurilucian BUTLER Primary Care Provider [phone] Ana Brewer MD Unavailable [phone] Rola Kumari DO Unavailable [phone] Reason for Visit * Reason Onset Date Comments Call Back 10/01/2023 Surgery clerance Encounter Details Date Type Department Care Team (Late st Contact Info) Description 10/01/[address] [facility] [address] [place] [address] Rola Kumari DO [address] [facility] [address] [place], [place] [address] Call Back (Surgery clerance) Social History Tobacco Use Types Packs/Day Years [...] on file documented as of this encounter Miscellaneous Notes * Telephone Encounter - Annalee Spence RN - 10/01/2023 1:44 PM CDT Images from the original note were not included. Patricio Stafford MD Lidke, Jen M, RN Caller: Unspecified (Today, 11:17 AM) No cardiac contraindication to surgery, recommend cardiac monitoring in the perioperative and operative period given history of arrhythmia. He should continue metoprolol succinate if able. Clearance letter created and faxed to PCP Dr. Acosta at fax number provided. Annalee Spence RN on 10/01/2023 at 1:52 PM * Telephone Encounter - Annalee Spence RN - 10/01/2023 12:30 PM CDT Images from the original note were not included. Patient had recent OV with Dr. Kumari for hip surgery cardiac clearance, per notes: 78-year-old male with evidence of paroxysmal ventricular tachycardia, peripheral arterial disease and abdominal aortic aneurysm, hyperlipidemia, and remote tobacco abuse #1 recommend ischemic testing given the above and risks for perioperative cardiac events. I have recommended a Lexiscan stress test to be done in [place]. I will also recommend that he start perioperative beta-sherin with metoprolol 25 mg daily and I gave him a prescription for this today. 09/25 Lexiscan: * Telephone Encounter - Pretty Teran - 10/01/2023 11:18 AM CDT [facility] Phone Message May a detailed message be left on voicemail: yes Reason for Call: Other: PCP needs note stating that the patient is clear for his surgery tomorrow 10/02/23. Please fax to Dr. Acosta's office fax# [phone] Action Taken: Other: cardiology Travel Screening: Not Applicable Thank you! [facility] Date of Service: documented in this encounter Plan of Treatment Not on file documented as of this encounter Visit Diagnoses Not on filedocumented in this encounter Care Teams Sawmill Tally Clerk Relationship Specialty Start Date End Date Chester Schumacher PA-C [address] [place] [address] PCP - General 08/29/23 Ana Brewer MD [address] [place] [address] Assigned Heart and Vascular Provider 09/11/23 Rola Kumari DO [address] [place] [address] Physician Cardiovascular Disease 09/18/23 documented as of this encounter
--- OUTSIDE RECORDS SUMMARY | 2023-10-02 10:30 | XMS_ITS | Encounter Summary ---
Author Organization [place] Address [address] [place] [address] Care Team Providers Care Airport Skilled Maintenance Supervisor Name Role Phone Chester Schumacher PA-C Primary Care Provider [phone] Ana Brewer MD Unavailable + [phone] Rola Kumari DO Unavailable [phone] Reason for Visit * Diagnostic Imaging NM (Routine) - Authorized Specialty Diagnoses / Procedures Referred By Contac t Referred To Contact Radiology. Diagnoses Ventricular tachycardia (H) Paroxysmal ventricular tachycardia (H) Family history of ischemic heart disease Personal history of tobacco use, presenting hazards to health Procedures NM Lexiscan stress test (nuc card) Rola Kumari DO [address] [place] [address] Nuclear Medicine [address] [place] [id number] Referral ID Status Reason Start Date Expiration Date V isits Requested Visits Authorized [id number] Authorized 09/21/2023 09/20/2024 5 5 Encounter Details Date Type Department Care Team (Late st Contact Info) Description 09/26/2023 8:52 AM CDT - 09/26/2023 11:59 PM CDT Hospital Encounter [facility] [address] [facility] [address] [place] [phone] Rola Kumari DO [address] [place] [address] Discharge Disposition: Home or Self Care Social [...] rest on 09/26/2023. Nuclear Study Quality The supervisor vendor quality images demonstrate diaphragmatic attenuation. Final image quality [...] on filedocumented in this encounter Care Teams Airport Skilled Maintenance Supervisor Relationship Specialty Start Date End Date Chester Schumacher PA-C [place] [address] [place] [address] PCP - General 08/29/23 Ana Brewer MD [address] [place] [address] Assigned Heart and Vascular Provider 09/11/23 Rola Kumari DO [address] [place] [address] Physician Cardiovascular Disease 09/18/23 documented as of this encounter
--- OUTSIDE RECORDS SUMMARY | 2023-10-02 10:31 | XMS_ITS | Encounter Summary ---
Author Organization [facility] Address [address] [place] [address] Care Team Providers Care Candy Forming Machine Operator Name Role Phone Chester Schumacher PA-C Primary Care Provider [phone] Reason for Referral * CV Testing (Routine) - Closed Specialty Diagnoses / Procedures Referred By Contac t Referred To Contact Cardiology Diagnoses Bradycardia PVC's (premature ventricular contractions) Procedures Echocardiogram Complete ZZHC TTE W/DOPPLER, COMPLETE ZZHC ECHO COMPLETE W DOPPLER W CONTRAST ZZHC ECHO COMPLETE W DOPPLER W/O CONTRAST ZZHC IV PUSH SINGLE, INITIAL SUBSTANCE ZZHC US GUIDE FOR PERICARDIOCENTESIS ZZHC ECHO MYOCARD BX ZZC INJECTION, PERFLUTREN LIPID MICROSPHERES, PER ML ZZHC STATISTIC IV PUSH SINGLE INITIAL SUBSTANCE NV ECHO MYOCARD BX NV INJECTION, PERFLUTREN LIPID MICROSPHERES, PER ML NV TTE W/DOPPLER, COMPLETE NV IV PUSH SINGLE, INITIAL SUBSTANCE NV TTE W/DOPPLER, COMPLETE NV TTE W/DOPPLER, COMPLETE HC US GUIDE FOR PERICARDIOCENTESIS HC ECHO MYOCARD BX HC IV PUSH SINGLE, INITIAL SUBSTANCE HC STATISTIC IV PUSH SINGLE INITIAL SUBSTANCE HC ECHO COMPLETE W DOPPLER W CONTRAST HC ECHO COMPLETE W DOPPLER W/O CONTRAST Ania Brewer MD [address] [place] [address] [facility] [address] [place] [address] 2nd [place] [address] Referral ID Status Reason Start Date Expiration Date Visits Re quested Visits Authorized [id number] Closed 08/29/2023 08/28/2024 1 1 * Consultation (Routine: Next available opening) - Pending Review Specialty Diagnoses / Procedures Referred By Arvind t Referred To Contact Diagnoses Infrarenal abdominal aortic aneurysm (AAA) without rupture (H24) Ectasia of artery (H24) Former smoker Hyperlipidemia LDL goal <70 Bradycardia Osteoarthritis of lumbar spine, unspecified spinal osteoarthritis complication status PVC's (premature ventricular contractions) Ania Brewer MD [address] [place] [id number] Referral ID Status Reason Start Date Expiration Date V isits Requested Visits Authorized [id number] Pending Review 08/29/2023 08/28/2024 1 1 Question Answer New or return visit? Return Appt Length 30 Min To be seen by Dr. Ania Brewer Comments Fasting labs BLE arterial US CTA chest abd pelvis with runoff Echocardiogram Ziopatch In person follow up 1 week after all tests Appt note: Follow up to 08/29/23 * Diagnostic Imaging CT Scan (Routine) - Closed Specialty Diagnoses / Procedures Referred By Arvind dalton Referred To Contact Radiology. Diagnoses Infrarenal abdominal aortic aneurysm (AAA) without rupture (H24) Ectasia of artery (H24) Procedures CTA Chest Abdomen Pelvis Runoff w Contrast Ania Brewer MD [address] [place] [id number] [place] [id number] Referral ID Status Reason Start Date Expiration Date Visits Re quested Visits Authorized [id number] Closed 08/29/2023 08/28/2024 1 1 * Diagnostic Imaging Ultrasound (Routine) - Pending Review Specialty Diagnoses / Procedures Referred By Arvind t Referred To Contact Radiology. Diagnoses Ectasia of artery (H24) Procedures US Lower Extremity Arterial Duplex Bilateral Ania Brewer MD [address] [place] [id number] Referral ID Status Reason Start Date Expiration Date V isits Requested Visits Authorized [id number] Pending Review 08/29/2023 08/28/2024 1 1 Reason for Visit * Reason Comments Consult Pt referred to [facility] Sly Schumacher PA-C for 4.2cm AAA. US abd pushed to PACS from [facility]. Fax referral faxed to HIM. Encounter Details Date Type Department Care Team (Latest Contact Info) Description 08/29/2023 12:00 PM CDT Office Visit [facility] Caryl [address] [place] [id number] Ania Brewer MD [address] [place] [address] Infrarenal abdominal aortic aneurysm (AAA) without rupture (H24) 4.2 cm on US 07/2023 [facility] (Primary Dx); 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 july 2023 US; Former smoker; Hyperlipidemia LDL goal <70; Bradycardia; Osteoarthritis of lumbar spine, unspecified spinal osteoarthritis complication status; PVC's (premature ventricular contractions) Social History Tobacco Use Types Packs/Day Years [...] Sign Reading Time Taken Comments Blood Pressure 108/63 08/29/2023 12:05 PM CDT Pulse 60 08/29/2023 12:09 PM CDT Temperature - - Respiratory Rate - - Oxygen Saturation 96% 08/29/2023 12:04 PM CDT Inhaled Oxygen Concentration - - Weight 108 kg (238 lb) 08/29/2023 12:04 PM CDT Height - - Body Mass Index - - documented in this encounter Patient Instructions * Patient Instructions* Ania Brewer MD - 08/29/2023 12:00 PM CDT Please go for ECHO, Zio patch, CTA of chest abdomen, pelvis with leg run off and bilateral leg arterial duplex , our staff will schedule tests Fasting labs order placed Office visit One week after all tests completed documented in this encounter Progress Notes * Shaina Sharp - 08/29/2023 12:00 PM CDT [facility] Patient is here for a consult to discuss Abdominal aortic aneurysm (AAA). Pt is currently taking Statin. BP 108/63 (BP Location: Left arm, Patient Position: Chair, Cuff Size: Adult Regular) Pulse 60 Wt 238 lb (108 kg) SpO2 96% The provider has been notified that the patient has no concerns. Questions patient would like addressed today are: N/A. Refills are needed: N/A Has homecare services and agency name: Ibis Sharp MA * Ania Brewer MD - 08/29/2023 12:00 PM CDT [facility] INITIAL VASCULAR MEDICINE CONSULT ( New patient visit) PRIMARY HEALTH CARE PROVIDER: Chester Schumacher PA-C ( [facility]) REFERRING HEALTH CARE PROVIDER; Chester Schumacher PA-C REASON FOR CONSULT: Evaluation and management of recently found infrarenal abdominal aortic aneurysm 4.2 cm and also ectasia of bilateral iliac arteries measuring 1.7 and 1.6 cm left and right iliac arteries respectively in a 78-year-old male former smoker smoked more than 30 years quit approximately 20 years ago with severe DJD of the right hip planning for the hip replacement in first week of September 2023 HPI: Rodri Kirkland is a 78 year old very pleasant male accompanied by his today for evaluation and management of recently found infrarenal AAA 4.2 cm and also ectasia of bilateral iliac arteries. He has a history of multiple large joint DJD's status post bilateral knee replacement and also left hip replacement now dealing with the right hip pain discomfort and planning to undergo hip re placement in first week of September. He also has a DJD of lumbar sacral spine. He is obese weighs 240pounds. He also has a history of bladder cancer underwent surgery, chemo many years ago and no recurrence .history of hyperlipidemia taking simvastatin a year ago lipid panel is good range. He deniesany chest pain, shortness of breath or palpitations. Reviewed his labs done outside the system on his phone in September 2022. Reviewed outside records in the scanned section of [employer]. 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 PAST SURGICAL HISTORY: Past Surgical History: Procedure Laterality Date OTHER SURGICAL HISTORY Bladder cancer related surgeries s/p hip arthroplasty Left s/p knee replacement Bilateral ALLERGIES No Known Allergies FAMILY HISTORY Family History Problem Relation Age of Onset Peripheral Vascular Disease Mother Coronary Artery Disease Father of [place] age 52 Deep Vein Thrombosis Sister VASCULAR FAMILY HISTORY 1st order relative with atherosclerotic PAD: Mother 1st order relative with AAA: No Family history of Familial Hyperlipidemia No Family History of Hypercoagulable state:No VASCULAR RISK FACTORS 1. Diabetes:No 2. Smoking: quit smoking some time ago. 3. HTN: normotensive 4.Hyperlipidemia: Yes - controlled SOCIAL HISTORY Social History Socioeconomic History Marital status: Spouse name: Not on file Number of children: Not on file Years of education: Not on file Highest education level: Not on file Occupational History Not on file Tobacco Use Smoking status: Never Smokeless tobacco: Never Substance and Sexual Activity Alcohol use: Yes Drug use: Never Sexual activity: Not on file Other Topics Concern Not on file Social History Narrative Not on file Social Determinants of Health Financial Resource Strain: Not on file Food Insecurity: Not on file Transportation Needs: Not on file Physical Activity: Not on file Stress: Not on file Social Connections: Not on file Interpersonal Safety: Not on file Housing Stability: Not on file ROS: General: No change in weight, sleep or appetite. Normal energy. No fever or chills Eyes: Negative for vision changes or eye problems ENT: No problems with ears, nose or throat. No difficulty swallowing. Resp: No coughing, wheezing or shortness of breath CV: No chest pains or palpitations GI: No nausea, vomiting, heartburn, abdominal pain, diarrhea, constipation or change in bowel habits : No urinary frequency or dysuria, bladder or kidney problems Musculoskeletal: No significant muscle or joint pains Neurologic: No headaches, numbness, tingling, weakness, problems with balance or coordination Psychiatric: No problems with anxiety, depression or mental health Heme/immune/allergy: No history of bleeding or clotting problems or anemia. No allergies or immune system problems Endocrine: No history of thyroid disease, diabetes or other endocrine disorders Skin: No rashes,worrisome lesions or skin problems Vascular: No claudication, lifestyle limiting or otherwise; no ischemic rest pain; no non-healing ulcers. No weakness, No loss of sensation EXAM: BP 108/63 (BP Location: Left arm, Patient Position: Chair, Cuff Size: Adult Regular) Pulse 60 Wt 238 lb (108 kg) SpO2 96% In general, the patient is a pleasant male in no apparent distress. HEENT: NC/AT. PERRLA. EOMI. Sclerae white, not injected. Nares clear. Pharynx without erythema or exudate. Dentition intact. Neck: No adenopathy. No thyromegaly. Carotids +2/2 bilaterally without bruits. No jugular venous distension. Heart: Bradycardic with skipped beats of frequent trigeminy. Lungs: CTA. No ronchi, wheezes, rales. No dullness to percussion. Abdomen: Soft, nontender, nondistended. No organomegaly. No AAA. No bruits. Extremities: No clubbing, cyanosis, or edema. No wounds. Well-healed scars in both knees Trace leg edema Good palpable peripheral pulses bilaterally Minimal varicose veins Labs: CBC RESULTS: Lab Results Component Value Date HGB 11.5 (L) 04/04/2006 PLT 175 04/04/2006 BMP RESULTS: Lab Results Component Value Date NA 140 04/01/2006 POTASSIUM 3.8 04/01/2006 CHLORIDE 106 04/01/2006 CO2 27 04/01/2006 ANIONGAP 7 04/01/2006 GLC 92 04/01/2006 BUN 13 04/01/2006 CR 0.91 04/01/2006 GFRESTIMATED >90 04/01/2006 GFRESTBLACK >90 04/01/2006 DIOGENES 9.5 04/01/2006 Procedures: Reviewed outside abdominal aorta and iliac vessels ultrasound done in July 2023, in the scanned section of epic Reviewed outside labs done in September 2022 on his phone Assessment and Plan: 1. Infrarenal abdominal aortic aneurysm (AAA) without rupture (H24) 4.2 cm on US 07/2023 [facility] - CBC with platelets differential; Future - CTA Chest Abdomen Pelvis Runoff w Contrast; Future - Follow-Up with Vascular Medicine; Future 2. 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 july 2023 US - US Lower Extremity Arterial Duplex Bilateral; Future - CTA Chest Abdomen Pelvis Runoff w Contrast; Future - Follow-Up with Vascular Medicine; Future 3. Former smoker - Follow-Up with Vascular Medicine; Future 4. Hyperlipidemia LDL goal <70 - Comprehensive metabolic panel; Future - Magnesium; Future - Lipid panel reflex to direct LDL Fasting; Future - Follow-Up with Vascular Medicine; Future 5. Bradycardia 6. PVC's (premature ventricular contractions) - EKG 12-lead complete w/read - Clinics - TSH with free T4 reflex; Future - Follow-Up with Vascular Medicine; Future - Echocardiogram Complete; Future - ZIO PATCH 8-14 DAYS APPLICATION; Future 7. Osteoarthritis of lumbar spine, unspecified spinal osteoarthritis complication status - Follow-Up with Vascular Medicine; Future This is a very pleasant 78-year-old male heavy smoker smoked more than 30 years quit approximately 20 years ago with history of severe DJD of all major joints underwent bilateral knee replacement left hip replacement now dealing with the right hip issues with severe DJD planning to undergo hip replacement in September2023. He has history of hyperlipidemia taking simvastatin reasonably well-controlled. He also dealing with chronic low back issues with DJD of the spine. He recently underwentabdominal aorta ultrasound in July at his primary care office revealed 4.2 cm infrarenal AAAand also ectasia of bilateral iliac arteries 1.7 and 1.6 cm. He has no family history of aneurysmal disease. His mother has a history of PAD old age and she lived up to 93 years. He denies any chest pain, shortness of breath. His exam consistent with trigeminy with skipped beats and bradycardia I have obtained EKG in the clinic sinus rhythm with multiple PVCs and trigeminy He has no recent thyroid function tests or echocardiogram or event monitor etc.. He accompanied by his and no history of snoring or sleep apnea. He is obese weighs 240 pounds. They live in [place]. Reviewed outside records with patient and his today. Given size and planning for right hip replacement and cardiac arrhythmia etc. needs additional evaluation I will arrange CTA of the chest abdomen pelvis with leg runoff Echocardiogram and Zio patch Bilateral lower extremity arterial duplex to look for peripheral aneurysms specifically popliteal area Check baseline labs including the thyroid function tests Follow-up with me 1 to 2 weeks after completion of all the tests 90 minutes spent on the date of the encounter doing chart review, history and exam, documentation, and further activities as noted above. Prolonged services due to medical complexity, review of outside records, coordinated multiple imaging studies. He is new to me updated chart. He and his had a lot of questions all of them were answered AVS with written instructions given The longitudinal care of plan for the above diagnoses was addressed during this visit. Due to addedcomplexity of care, we will continue to supprt Rodri F Tousignant and the subsequent management ofthis/these conditions and with ongoing continuity of care for this/these conditions. Thank you for the consultation This note was dictated by utilizing [employer] software Copy of this note to primary care provider Ania Brewer MD,FADEVON,FSVM,FNLA, FACP Vascular Medicine Clinical Hypertension Specialist Clinical Lipidologist documented in this encounter Miscellaneous Notes * Addendum Note - Radha Wang RN - 08/29/2023 12:00 PM CDTAddended by: RADHA WANG on: 09/06/2023 02:39 PM Modules accepted: Orders documented in this encounter Plan of Treatment Scheduled Referrals Name Type Priority Associated Diagnoses Orde r Schedule Follow-Up with Vascular Medicine Referral Routine: Next available opening Infrarenal abdominal aortic aneurysm (AAA) without rupture (H24) 4.2 cm on US 07/2023 [facility] 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 july 2023 US Former smoker Hyperlipidemia LDL goal <70 Bradycardia Osteoarthritis of lumbar spine, unspecified spinal osteoarthritis complication status PVC's (premature ventricular contractions) Expected: 08/29/2023 (Approximate), Expires: 08/28/2024 documented as of this encounter Procedures Procedure Name Priority Date/Time Associated Diagnosis Comments EKG 12-LEAD COMPLETE W/READ - CLINICS Routine 08/29/2023 Bradycardia documented in this encounter Results * ECHO COMPLETE WITH CONTRAST (09/05/2023 10:24 AM CDT) LVEF 55-60% CARDIOLOGY RESULTS Anatomical Region Laterality Modality Echocardiography 09/05/2023 9:51 AM CDT Narrative 09/05/2023 1:58 PM CDT [id number]^ERIKA^ANIA^SONIDO [facility], Echocardiography Laboratory [address] [place] [address] Name: RODRI KIRKLAND : 1945 Study Date: 09/05/2023 09:51 AM Age: 78 yrs Gender: Male Patient Location: [facility] Reason For Study: Bradycardia, PVC's (premature ventricular contractions) Ordering Physician: ANIA BREWER Referring Physician: ANIA BREWER Performed By: Reina Lira RDCS BSA: 2.2 m2 Height: 69 in Weight: 238 lb BP: 121/79 mmHg Procedure Echocardiogram with two-dimensional, color and spectral Doppler performed. Contrast Optison. Technically difficult study.Extremely poor acoustic windows. Limited information was obtained during study. Optison ([facility] #[id number]) given intravenously. Patient was given 5 ml [...] Procedure Note Crys Marin MD - 09/05/2023 [id number]^GODISHALA^LAXMANA^SONIDO [facility], Echocardiography Laboratory [address] [place] [id number] Name: RODRI KIRKLAND : 1945 Study Date: 09/05/2023 09:51 AM Age: 78 yrs Gender: Male Patient Location: [facility] Reason For Study: Bradycardia, PVC's (premature ventricularcontractions) Ordering Physician: ANIA BREWER Referring Physician: ANIA BREWER Performed By: Reina Lira RDCS BSA: 2.2 m2 Height: 69 in Weight: 238 lb BP: 121/79 mmHg Procedure Echocardiogram with two-dimensional, color and spectral Dopplerperformed. Contrast [employer]ison. Technically difficult study.Extremely poor acousticwindows. Limited information was obtained during study. Optison ([facility]#[id number]) given intravenously. 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 Mild luminal irregularity at level of aneurysm. Larger distal SFA aneurysm as seen on CTA not noted on duplex. 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 Mild luminal irregularity at level of aneurysm. Larger distal SFA aneurysm as seen on CTA not noted on duplex. LEFT ENGINEERING INTERN: 118 PFA: 127 SFA prox: 67 SFA [...] SFA and popliteal artery. VIRIDIANA ELDER MD Aggieisrael Sonido Brewer MD IMG US ORDER JAE * CTA Chest Abdomen Pelvis Runoff w Contrast (09/05/2023 7:18 AM CDT) Anatomical Region Laterality Modality Abdomen/Pelvis, SUBRAD IR NV ZAIDA, UMP CT CTA, RAD CT Computed [...] Brewer MD IMG CT ORDER JAE * Lipid panel reflex to direct LDL Fasting (08/31/2023 8:58 AM CDT) Pathologist [facility] Cholesterol 157 <200 mg/dL 08/31/2023 11:41 PM [...] LAB - BLOOD ORDERABLES Performing Organization Address City/[facility] Co de Phone Number [facility] [place] Core Lab [address] [facility], [address] * Magnesium (08/31/2023 8:58 AM CDT) Magnesium 2.1 1.7 - 2.3 mg/dL 08/31/2023 11:41 PM CDT [facility] Blood BLOOD SPECIMEN / Unknown Venipuncture / Unknown 08/31/2023 8:58 AM CDT 08/31/2023 8:58 AM CDT Ania Brewer MD LAB - BLOOD ORDERABLES Performing Organization Address [facility] de Phone Number [facility] [place] [facility] [address] [facility], [address] * (ABNORMAL) Comprehensive metabolic panel (08/31/2023 8:58 [...] Ania Brewer MD LAB - BLOOD ORDERABLES [facility] Core Lab [address] [facility], [address] [phone] * TSH with free T4 reflex (08/31/2023 8:58 AM CDT) TSH 2.62 0.30 - 4.20 uIU/mL 08/31/2023 11:41 PM CDT [facility] Blood BLOOD SPECIMEN / Unknown Venipuncture / Unknown 08/31/2023 8:58 AM CDT 08/31/2023 8:58 AM CDT Ania Brewer MD LAB - BLOOD ORDERABLES Performing Organization Address City/[facility]/ZIP Co de Phone Number LABORATORY [facility] Core Lab [address] [facility], [address] [phone] * EKG 12-lead complete w/read - Clinics (08/29/2023) Ania Brewer MD ECG ORDERABL ES documented in this encounter Visit Diagnoses Diagnosis Infrarenal abdominal aortic aneurysm (AAA) without rupture (H24) 4.2 cm on US 07/2023 [facility]- Primary 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 july 2023 US Former smoker Personal history of tobacco use, presenting hazards to health Hyperlipidemia LDL goal <70 Other and unspecified hyperlipidemia Bradycardia Other specified cardiac dysrhythmias Osteoarthritis of lumbar spine, unspecified spinal osteoarthritis complication status PVC's (premature ventricular contractions) Other premature beats Infrarenal abdominal aortic aneurysm (AAA) without rupture (H24) 4.2 cm on US 07/2023 [facility] 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 july 2023 US 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 july 2023 US Bradycardia Other specified cardiac dysrhythmias PVC's (premature ventricular contractions) Other premature beats documented in this encounter Care Teams Candy Forming Machine Operator Relationship Specialty Start Date End Date Chester Schumacher PA-C [place] [address] [place] [address] PCP - General 08/29/23 documented as of this encounter
--- OUTSIDE RECORDS SUMMARY | 2023-10-02 10:31 | XMS_ITS | Encounter Summary ---
Author Organization [place] Address [address] [place] [address] Care Team Providers Care Entry Tech Name Role Phone Chester Schumacher PA-C Primary Care Provider [phone] Reason for Referral * Diagnostic Imaging Ultrasound (Routine) - Pending Review Specialty Diagnoses / Procedures Referred By Arvind dalton Referred To Contact Radiology. Diagnoses Ectasia of artery (H24) Procedures US Lower Extremity Arterial Duplex Bilateral Ana Brewer MD [address] [place] [id number] Referral ID Status Reason Start Date Expiration Date V isits Requested Visits Authorized [id number] Pending Review 08/29/2023 08/28/2024 1 1 Reason for Visit * Diagnostic Imaging Ultrasound (Routine) - Pending Review Specialty Diagnoses / Procedures Referred By Arvind dalton Referred To Contact Radiology. Diagnoses Ectasia of artery (H24) Procedures US Lower Extremity Arterial Duplex Bilateral Aan Brewer MD [address] [place] [id number] Referral ID Status Reason Start Date Expiration Date V isits Requested Visits Authorized [id number] Pending Review 08/29/2023 08/28/2024 1 1 Encounter Details Date Type Department Care Team (Latest Contact Info) Description 09/05/2023 7:30 AM CDT - 09/05/2023 11:59 PM CDT Hospital Encounter [facility] 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 ??RIGHT LOWER EXTREMITY: Distal SFA aneurysm not noted on duplex exam. 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 Normal wave forms throughout. 2. ??LEFT LOWER EXTREMITY: Occluded distal SFA and popliteal artery. VIRIDIANA ELEDR MD Narrative 09/05/2023 10:43 AM CDT [facility] LOCATION: [facility] DATE: 09/05/2023 EXAM: DUPLEX ARTERIAL ULTRASOUND OF [...] ARTERIAL ULTRASOUND FINDINGS: (velocities in cm/s) RIGHT YARDING SUPERVISOR: 103 PFA: 113 SFA prox: 109 SFA mid: 107 SFA dist: 101 Pop: 77 PT: Not obtained AT: 118 DP: Not obtained Mild aneurysmal dilation of the popliteal artery measuring 9 mm in diameter. Mild luminal irregularity at level of aneurysm. Larger distal SFA aneurysm as seen on CTA not noted on duplex. LEFT YARDING SUPERVISOR: 118 PFA: 127 SFA prox: 67 SFA mid: 78 SFA dist: Occluded Pop: Occluded TP trunk: 25 PT: Not obtained AT: Not obtained DP: Not obtained Procedure Note Viridiana Elder MD - 09/05/2023 [facility] LOCATION: [facility] DATE: 09/05/2023 EXAM: DUPLEX ARTERIAL ULTRASOUND OF [...] ARTERIAL ULTRASOUND FINDINGS: (velocities in cm/s) RIGHT YARDING SUPERVISOR: 103 PFA: 113 SFA prox: 109 SFA mid: 107 SFA dist: 101 Pop: 77 PT: Not obtained AT: 118 DP: Not obtained Mild aneurysmal dilation of the popliteal artery measuring 9 mm in diameter. Mild luminal irregularity at level of aneurysm. Larger distal SFA aneurysm as seen on CTA not noted on duplex. LEFT YARDING SUPERVISOR: 118 PFA: 127 SFA prox: 67 SFA [...] SFA and popliteal artery. 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
--- OUTSIDE RECORDS SUMMARY | 2023-10-02 10:31 | XMS_ITS | Encounter Summary ---
Author Organization [facility] Address [address] [facility] [place] [address] Care Team Providers Care Train Conductor Name Role Phone Chester Schumacher PA-C Primary Care Provider [phone] Ana Brewer MD Unavailable + [phone] Rola Kumari DO Unavailable [phone] Reason for Referral * CV Cardio consult (Urgent: 3-5 Days) - Pending Review Specialty Diagnoses / Procedures Referred By Contac t Referred To Contact Cardiovascular Disease Diagnoses Ventricular tachycardia (H) Ana Brewer MD [address] [facility] [address] [place] [address] Referral ID Status Reason Start Date Expiration Date V isits Requested Visits Authorized [id number] Pending Review 09/18/2023 09/17/2024 3 3 Question Answer Reason for Consult: EP/Arrhythmia Scheduling Instructions: [employer] [facility] will call you to coordinate your care as prescribed by your provider. If you don't hear from a sales representative [employer] within 2 business days, please call [phone]. Additional Information: scheduled to undergo Rt hip replacement , Zio patch V tach , SVT and PVCs etc please evaluate and clear for surgery Comments Please be aware that coverage of these services is subject to the terms and limitations of your health insurance plan. Call member services at your health plan with any benefit or coverage questions. [employer] [facility] will call you to coordinate your care as prescribed by your provider. If you don't hear from a sales representative [employer] within 2 business days, please call [phone]. 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, left (H24) Popliteal artery occlusion, left (H24) Popliteal artery aneurysm (H24) Ana Brewer MD [address] [place] [address] V[facility] Center [address] [place] [id number] Referral ID Status Reason Start Date Expiration Date V isits Requested Visits Authorized [id number] Pending Review 09/18/2023 09/17/2024 3 3 Question Answer Referral Type: Vascular Surgery Preferred Location: [facility] V[facility] Health [facility] Scheduling Instructions: Please call to schedule your appointment Reason for Referral: vasculaopath, multiple aneurysms , former smoker planning for Hip replacement on 09/25/2023 , AAA 4.2 cm, RT Pop artery aneurysm with mural thrombus and Left distal SFA and PA occlusion , please eval before Hip replacement Comments Please be aware that coverage of these services is subject to the terms and limitations of your health insurance plan. Call member services at your health plan with any benefit or coverage questions. Please call to schedule your appointment Reason for Visit * Reason Comments RECHECK Fasting labs 08/21/23B LE arterial US 09/05/23CTA chest abd pelvis with runoff 09/05/23Echocardiogram 09/05/23ZiopatchIn person follow up 1 week after all tests * Consultation (Routine: Next available opening) - Pending Review Specialty Diagnoses / Procedures Referred By Arvind dalton Referred To Contact Diagnoses Infrarenal abdominal aortic aneurysm (AAA) without rupture (H24) Ectasia of artery (H24) Former smoker Hyperlipidemia LDL goal <70 Bradycardia Osteoarthritis of lumbar spine, unspecified spinal osteoarthritis complication status PVC's (premature ventricular contractions) Ana Brewer MD [address] [place] [id number] Referral ID Status Reason Start Date Expiration Date V isits Requested Visits Authorized [id number] Pending Review 08/29/2023 08/28/2024 1 1 Encounter Details Date Type Department Care Team (Latest Contact Info) Description 09/18/2023 8:00 AM CDT Office Visit [facility] [place] [address] [place] [phone] Ana Brewer MD [address] [place] [id number] 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 (Primary Dx); Popliteal artery occlusion, left (H24); Distal Superficial Femoral artery occlusion, left (H24); Ventricular tachycardia (H); Infrarenal abdominal aortic aneurysm (AAA) without rupture (H24) 4.2 cm on US 07/2023 [facility]; 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 july 2023 US; Primary osteoarthritis of right hip; Former smoker; Hyperlipidemia LDL goal <70; Osteoarthritis of lumbar spine, unspecified spinal osteoarthritis complication status Social History Tobacco Use Types Packs/Day Years [...] Sign Reading Time Taken Comments Blood Pressure 109/70 09/18/2023 8:15 AM CDT Pulse 56 09/18/2023 8:14 AM CDT Temperature - - Respiratory Rate - - Oxygen Saturation 95% 09/18/2023 8:14 AM CDT Inhaled Oxygen Concentration - - Weight 106.8 kg (235 lb 6.4 oz) 09/18/2023 8:14 AM CDT Height - - Body Mass Index - - documented in this encounter Patient Instructions * Patient Instructions* Ana Brewer MD - 09/18/2023 8:00 AM CDT Please see vascular surgery and EP auto porter before her upcoming hip surgery , order placed , our staff will schedule the appointments documented in this encounter Progress Notes * Shaina Sharp - 09/18/2023 8:00 AM CDT [facility] Patient is here for a follow up. Pt is currently taking Aspirin and Statin. BP 109/70 (BP Location: Right arm, Patient Position: Chair, Cuff Size: Adult Regular) Pulse 56 Wt 235 lb 6.4 oz (106.8 kg) SpO2 95% The provider has been notified that the patient has no concerns. Questions patient would like addressed today are: N/A. Refills are needed: N/A Has homecare services and agency name: Ibis Sharp MA * Ana Brewer MD - 09/18/2023 8:00 AM CDT [facility]IC[facility] PRIMARY HEALTH CARE PROVIDER: Chester Schumacher PA-C ( [facility]) , Stevo Acosta MD Follow-up visit Review of recent multiple imaging studies, Zio patch, echocardiogram etc. 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 2.2 x 1.8 cm Left distal SFA occlusion and popliteal artery occlusion Ectasia of bilateral iliac arteries He accompanied by his today for this visit He has a severe DJD of the right hip planning to undergo hip replacement on September 25, 2023 He denies any chest pain, shortness of breath or palpitations He is a former smoker quit more than 20 years ago For full details please see my initial consult note PAST MEDICAL HISTORY Past Medical History: Diagnosis [...] Disease Mother Coronary Artery Disease Father of [place] age 52 Deep Vein Thrombosis Sister VASCULAR [...] weakness, No loss of sensation EXAM: BP 109/70 (BP Location: Right arm, Patient Position: Chair, Cuff Size: Adult Regular) Pulse 56 Wt 235 lb 6.4 oz (106.8 kg) SpO2 95% In general, the patient is a pleasant [...] 04/01/2006 DIOGENES 9.4 08/31/2023 DIOGENES 9.5 04/01/2006 Procedures: Reviewed outside abdominal aorta and iliac vessels ultrasound done in July 2023, in the scanned section of [facility] Reviewed outside labs done in September 2022 on his phone Assessment and Plan: 1. Popliteal artery occlusion, left (H24) 2. Distal Superficial Femoral artery occlusion, left (H24) 3. 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 Ventricular tachycardia (H) 5. Infrarenal abdominal aortic aneurysm (AAA) without rupture (H24) 4.2 cm on US 07/2023 [facility], last week CTA unchanged same size 6. 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 Former smoker 8. Hyperlipidemia LDL goal <70 9. Osteoarthritis of lumbar spine, unspecified spinal osteoarthritis complication status 10. Primary osteoarthritis of right hip This is a very pleasant 78-year-old male heavy smoker smoked more than 30 years quit approximately 20 years ago with history of severe DJD of all major joints underwent bilateral knee replacement left hip replacement now dealing with the right hip issues with severe DJD planning to undergo hip replacement in September 25 2023. He has history of hyperlipidemia taking simvastatin reasonably well-controlled. He also dealing with chronic low back issues with DJD of the spine. He recently underwent abdominal aorta ultrasound in July2023 at his primary care office revealed 4.2 cm infrarenalAAA and also ectasia of bilateral iliac arteries 1.7 [...] sinus rhythm with multiple PVCs and trigeminy during last office visit He accompanied by his and no history of snoring or sleep apnea. He is obese weighs 235 pounds. They live in [place]. I have arranged Zio patch reviewed results and copy given to the patient he has a ventricular tachycardia nonsustained multiple episodes longest run was 11 beats, bigeminy, trigeminy and also PVCs. 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 Reviewed all the imaging studies with patient and his today More than 55 minutes spent on the date of the encounter doing chart review, review of all the imaging studies, history, exam, documentation and addressed above-mentioned multiple issues arranged and coordinated appointments to see vascular surgery service and EP cardiology. AVS with written instructions given The longitudinal care of plan for the above diagnoses was addressed during this visit. Due to addedcomplexity of care, we will continue to supprt Rodri F Tousignant and the subsequent management ofthis/these conditions and with ongoing continuity of care for this/these conditions. Copy of this note to primary care physician Dr. 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 Expected: 09/18/2023 (Approximate), Expires: 09/17/2024 Adult Cardiology Eval Deburr Operator Referral Referral Urgent: 3-5 Days Ventricular tachycardia (H) Expected: 09/18/2023 (Approximate), Expires: 09/17/2024 documented as of this encounter Visit Diagnoses Diagnosis 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- Primary Aneurysm of artery of lower extremity Popliteal artery occlusion, left (H24) Embolism and thrombosis of arteries of lower extremity Distal Superficial Femoral artery occlusion, left (H24) Embolism and thrombosis of unspecified artery Ventricular tachycardia (H) Paroxysmal ventricular tachycardia Infrarenal abdominal aortic aneurysm (AAA) without rupture (H24) 4.2 cm on US 07/2023 [facility] 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 july 2023 US Primary osteoarthritis of right hip Primary localized osteoarthrosis, pelvic region and thigh Former smoker Personal history of tobacco use, presenting hazards to health Hyperlipidemia LDL goal <70 Other and unspecified hyperlipidemia Osteoarthritis of lumbar spine, unspecified spinal osteoarthritis complication status documented in this encounter Care Teams Train Conductor Relationship Specialty Start Date End Date Chester Schumacher PA-C [facility] [address] [place] [address] PCP - General 08/29/23 Ana Brewer MD [address] [place] [address] Assigned Heart and Vascular Provider 09/11/23 Rola Kumari DO [address] [place] [id number] Physician Cardiovascular Disease 09/18/23 documented as of this encounter
--- OUTSIDE RECORDS SUMMARY | 2023-10-02 10:31 | XMS_ITS | Encounter Summary ---
Author Organization [place] Address [facility] [place] [address] Care Team Providers Care Automotive Accessory Installer Name Role Phone Chester Schumacher PA-C Primary Care Provider [phone] Reason for Visit * Reason Comments Nurse Visit Encounter Details Date Type Department Care Team (Late st Contact Info) Description 09/06/2023 9:30 AM CDT Allied Health/Nurse Visit [facility] [address] [place] [phone] Ana Brewer MD [address] [facility] [address] [place], [place] [address] Nurse Visit Social History Tobacco Use Types Packs/Day Years [...] on file documented as of this encounter Progress Notes * Nicole Eagle - 09/06/2023 9:30 AM CDT Rodri Kirkland arrived here on 09/06/2023 9:08 AM for 8-14 Days; 8 days to be exact. Zio monitor placement per ordering provider MD Osman for the diagnosis Bradycardia and PVCs. will supervise. Patient???s skin was prepped per protocol. Zio monitor was placed. Instructions were reviewed with and given to the patient. Patient verbalized understanding of wear, troubleshooting and monitor return instructions. Nicole Lucero documented in this encounter Plan of Treatment Not on file documented as of this encounter Procedures Procedure Name Priority Date/Time Associated Diagnosis Comments ZIO PATCH 8-14 DAYS INTERPRETATION Routine 09/18/2023 11:15 AM CDT Bradycardia PVC's (premature ventricular contractions) ZIO PATCH 8-14 DAYS APPLICATION Routine 09/06/2023 2:37 PM CDT Bradycardia PVC's (premature ventricular contractions) documented in this encounter Results * ZIO PATCH 8-14 DAYS (additional cost [...] PVCs, 21% burden No symptoms were reported. Ana Brewer MD CV CARDIAC S ERVICES ORDERABLES documented in this encounter Visit Diagnoses Diagnosis Bradycardia Other specified cardiac dysrhythmias PVC's (premature ventricular contractions) Other premature beats documented in this encounter Care Teams Automotive Accessory Installer Relationship Specialty Start Date End Date Chester Schumacher PA-C [place] [address] [place] [address] PCP - General 08/29/23 documented as of this encounter
--- OUTSIDE RECORDS SUMMARY | 2023-10-02 10:31 | XMS_ITS | Encounter Summary ---
Author Organization [place] Address [address] [facility] [place] [address] Care Team Providers Care Hotel Custodian Name Role Phone Filiberto Schumachermadhurilucian BUTLER Primary Care Provider [phone] Ana Brewer MD Unavailable + [phone] Reason for Referral * CV Testing (Routine) - Pending Review Specialty Diagnoses / Procedures Referred By Arvind dalton Referred To Contact Diagnoses Bradycardia PVC's (premature ventricular contractions) Procedures ZIO PATCH 8-14 DAYS (additional cost to patient) Ana Brewer MD [address] [place] [address] Referral ID Status Reason Start Date Expiration Date V isits Requested Visits Authorized [id number] Pending Review 09/06/2023 09/05/2024 1 1 Encounter Details Date Type Department Care Team (Late st Contact Info) Description 09/06/2023 Orders Only [facility] [place] [address] [facility] [address] [place] [id number] Ana Brewer MD [address] [place] [id number] Bradycardia (Primary Dx); PVC's (premature ventricular contractions) Social History Tobacco [...] documented as of this encounter Results * ZIO PATCH 8-14 [...] PVC's (premature ventricular contractions) Other premature beats Bradycardia- Primary Other specified cardiac dysrhythmias PVC's (premature ventricular contractions) Other premature beats documented in this encounter Care Teams Hotel Custodian Relationship Specialty Start Date End Date Chester Schumacher PA-C [address] [place] [address] PCP - General 08/29/23 Ana Brewer MD [address] [place] [address] Assigned Heart and Vascular Provider 09/11/23 documented as of this encounter
--- OUTSIDE RECORDS SUMMARY | 2023-10-02 10:31 | XMS_ITS | Encounter Summary ---
Author Organization [facility] Address [address] [place] [address]. [place] [address] Care Team Providers Care Drilling Machine Operator Name Role Phone Unavailable Primary Care Provider Unavailabl e Encounter Details Date Type Department Care Team (Late st Contact Info) Description 07/24/2023 Medical Correspondence [facility] [address] [place] [address] Scan, Non-Provider Social History Tobacco Use Types Packs/Day Years Used Date Smoking Tobacco: Never Assessed Adolescent Education Answer Date Record ed Getting School Help Needed Not on file 11/26 Sex and Gender Information Value Date Recorded Sex Assigned at Not on file Gender Identity Not on file Sexual Orientation Not on file documented as of this encounter Plan of Treatment Not on file documented as of this encounter Visit Diagnoses Not on filedocumented in this encounter
--- OUTSIDE RECORDS SUMMARY | 2023-10-02 10:31 | XMS_ITS | Encounter Summary ---
Author Organization [place] Address [address] [place] [address] Care Team Providers Care Leasing Property Manager Name Role Phone Chester Schumacher PA-C Primary Care Provider [phone] Ana Brewer MD Unavailable + [phone] Rola Kumari DO Unavailable [phone] Encounter Details Date Type Department Care Team (Late st Contact Info) Description 09/10/2023 External Order Results [facility] [address] [place] [address] Outside, Provider Social History Tobacco Use Types Packs/Day Years [...] Procedure Name Priority Date/Time Associated Diagnosis Comments ROUTINE UA WITH MICROSCOPIC Routine 09/10/2023 9:40 AM CDT documented in this encounter Results * (ABNORMAL) UA with Microscopic (09/10/2023 9:40 AM CDT) Color Urine (External) Yellow Yellow NON-INTERFAC ED (ONBASE SCANS) Appearance Urine (External) Slightly cloudy(A) Clear NON-INTERFAC ED (ONBASE SCANS) Glucose Urine (External) Negative Negative NON-INTERFAC ED (ONBASE SCANS) Bilirubin Urine (External) Negative Negative NON-INTERFAC ED (ONBASE SCANS) Ketones Urine (External) Negative Negative NON-INTERFAC ED (ONBASE SCANS) Specific [place] Urine (External) 1.015 1.000 - 1.030 NON-INTERFAC [...] SCANS) Urine 09/10/2023 9:40 AM CDT Narrative [facility] - 09/20/2023 12:09 PM CDT Verified by Anish Posada on 09/20/2023. Stevo Acosta MD LAB - URINE ORDERABL ES [facility] NON-INTERFACED (ONBASE SCANS) documented in this encounter Visit Diagnoses Not on filedocumented in this encounter Care Teams Leasing Property Manager Relationship Specialty Start Date End Date Chester Schumacher PA-C [facility] [address] [place], [place] [id number] PCP - General 08/29/23 Ana Brewer MD [address] [place] [address] Assigned Heart and Vascular Provider 09/11/23 Rola Kumari DO [address] [place] [address] Physician Cardiovascular Disease 09/18/23 documented as of this encounter
--- OUTSIDE RECORDS SUMMARY | 2023-10-02 10:31 | XMS_ITS | Encounter Summary ---
Author Organization [place] Address [address] [place] [address] Care Team Providers Care Patient Companion Name Role Phone Chester Schumacher PA-C Primary Care Provider [phone] Encounter Details Date Type Department Care Team (Latest Contact Info) Description 08/29/2023 Travel Social History Tobacco Use Types Packs/Day Years Used Date Smoking Tobacco: Never Smokeless Tobacco: Never Alcohol Use Standard Drinks/Week Comments Yes 0 (1 standard drink = 0.6 oz pur e alcohol) Adolescent Education Answer Date Record ed Getting School Help Needed Not on file 08/28 Sex and Gender Information Value Date Recorded Sex Assigned at Not on file Gender Identity Not on file Sexual Orientation Not on file documented as of this encounter Plan of Treatment Not on file documented as of this encounter Visit Diagnoses Not on filedocumented in this encounter Care Teams Patient Companion Relationship Specialty Start Date End Date Chester Schumacher PA-C [address] [place] [address] PCP - General 08/29/23 documented as of this encounter
--- OUTSIDE RECORDS SUMMARY | 2023-10-02 10:31 | XMS_ITS | Encounter Summary ---
Author Organization [place] Address [address] [place] [address] Care Team Providers Care Clothing Cutter Name Role Phone Chester Schumacher PA-C Primary Care Provider [phone] Reason for Referral * Diagnostic Imaging CT Scan (Routine) - Closed Specialty Diagnoses / Procedures Referred By Arvind dalton Referred To Contact Radiology. Diagnoses Infrarenal abdominal aortic aneurysm (AAA) without rupture (H24) Ectasia of artery (H24) Procedures CTA Chest Abdomen Pelvis Runoff w Contrast Ana Brewer MD [address] [place] [address] [address] Scan [address] [place] [id number] Referral ID Status Reason Start Date Expiration Date Visits Re quested Visits Authorized [id number] Closed 08/29/2023 08/28/2024 1 1 Reason for Visit * Diagnostic Imaging CT Scan (Routine) - Closed Specialty Diagnoses / Procedures Referred By Arvind dalton Referred To Contact Radiology. Diagnoses Infrarenal abdominal aortic aneurysm (AAA) without rupture (H24) Ectasia of artery (H24) Procedures CTA Chest Abdomen Pelvis Runoff w Contrast nAa Brewer MD [address] [place] [address] [address] Scan [address] [place] [phone] Referral ID Status Reason Start Date Expiration Date Visits Re quested Visits Authorized [id number] Closed 08/29/2023 08/28/2024 1 1 Encounter Details Date Type Department Care Team (Latest Contact Info) Description 09/05/2023 6:33 AM CDT - 09/05/2023 7:29 AM CDT Hospital Encounter [facility] Imaging [address] [place] [phone] Ana Brewer MD [address] [place] [address] Infrarenal abdominal aortic aneurysm (AAA) without rupture (H24) 4.2 cm on US 07/2023 [facility]; Ectasia of Bilateral Iliac artery (H24) [...] Procedure Name Priority Date/Time Associated Diagnosis Comments CTA CHEST ABDOMEN PELVIS RUNOFF W CONTRAST Routine 09/05/2023 7:18 AM CDT Infrarenal abdominal aortic aneurysm (AAA) without rupture (H24) 4.2 cm on US 07/2023 [facility] 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 july 2023 US documented in this encounter Results * CTA Chest Abdomen Pelvis Runoff w Contrast (09/05/2023 7:18 AM CDT) Anatomical Region Laterality Modality Abdomen/Pelvis, SUBRAD IR CHILO SIBLEY CT CTA, RAD CT Computed Tomography Impressions [...] left above-knee popliteal artery. KENDALL MULLIGAN MD Ana Brewer MD IMG CT ORDER JAE documented in this encounter Visit Diagnoses Diagnosis Infrarenal abdominal aortic aneurysm (AAA) without rupture (H24) 4.2 cm on US 07/2023 [facility] 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 july 2023 US documented in this encounter Administered Medications Inactive Administered Medications - up to 3 most recent administrations Medication Order MAR Action Action Date Dose Rate Site iopamidol (ISOVUE-370) solution 100 mL 100 mL, Intravenous, ONCE, On Sun09/05/23 at 0700, For 1 dose $Given 09/05/2023 7:07 AM CDT 100 mLs Saline Intravenous, 80 mL, ONCE, On Sun09/05/23 at 0700, For 1 dose $Given 09/05/2023 7:07 AM CDT 80 mLs documented in this encounter Care Teams Clothing Cutter Relationship Specialty Start Date End Date Chester Schumacher PA-C [facility] [address] [place] [address] PCP - General 08/29/23 documented as of this encounter
--- OUTSIDE RECORDS SUMMARY | 2023-10-02 10:31 | XMS_ITS | Encounter Summary ---
Author Organization [place] Address [address] [place] [address] Care Team Providers Care Cottonseed Meat Presser Name Role Phone Chester Schumacher PA-C Primary Care Provider [phone] Reason for Visit * CV Testing (Routine) - Closed Specialty Diagnoses / Procedures Referred By Contoneida t Referred To Contact Cardiology Diagnoses Bradycardia PVC's (premature ventricular contractions) Procedures Echocardiogram Complete ZZHC TTE W/DOPPLER, COMPLETE ZZHC ECHO COMPLETE W DOPPLER W CONTRAST ZZHC ECHO COMPLETE W DOPPLER W/O CONTRAST ZZHC IV PUSH SINGLE, INITIAL SUBSTANCE ZZHC US GUIDE FOR PERICARDIOCENTESIS ZZHC ECHO MYOCARD BX ZZC INJECTION, PERFLUTREN LIPID MICROSPHERES, PER ML ZZHC STATISTIC IV PUSH SINGLE INITIAL SUBSTANCE SD ECHO MYOCARD BX SD INJECTION, PERFLUTREN LIPID MICROSPHERES, PER ML SD TTE W/DOPPLER, COMPLETE SD IV PUSH SINGLE, INITIAL SUBSTANCE SD TTE W/DOPPLER, COMPLETE SD TTE W/DOPPLER, COMPLETE HC US GUIDE FOR PERICARDIOCENTESIS HC ECHO MYOCARD BX HC IV PUSH SINGLE, INITIAL SUBSTANCE HC STATISTIC IV PUSH SINGLE INITIAL SUBSTANCE HC ECHO COMPLETE W DOPPLER W CONTRAST HC ECHO COMPLETE W DOPPLER W/O CONTRAST Ania Brewer MD [address] [place] [address] [facility] [address] [place] [address] [address] [place] [address] Referral ID Status Reason Start Date Expiration Date Visits Re quested Visits Authorized [id number] Closed 08/29/2023 08/28/2024 1 1 Encounter Details Date Type Department Care Team (Latest Contact Info) Description 09/05/2023 10:00 AM CDT Ancillary Procedure [facility] [address] [place] [phone] Ania Brewer MD [address] [facility] [address] [place] [address] Bradycardia; PVC's (premature ventricular contractions) Social History Tobacco [...] as of this encounter Miscellaneous Notes * Result Encounter Note - Ania Brewer MD - 09/05/2023 10:00 AM CDT Will discuss at his visit documented in this encounter Plan of Treatment Not on file documented as of this encounter Procedures Procedure Name Priority Date/Time Associated Diagnosis Comments ECHO COMPLETE WITH CONTRAST Routine 09/05/2023 10:24 AM CDT Bradycardia PVC's (premature ventricular contractions) documented in this encounter Results * ECHO COMPLETE WITH CONTRAST (09/05/2023 10:24 AM CDT) LVEF 55-60% CARDIOLOGY RESULTS Anatomical Region Laterality Modality Echocardiography 09/05/2023 9:51 AM CDT Narrative 09/05/2023 1:58 PM CDT [id number]^ERIKA^ANIA^NABIL [facility], Echocardiography Laboratory [address] [place] [address] Name: RODRI LOU : 1945 Study Date: 09/05/2023 09:51 AM Age: 78 yrs Gender: Male Patient Location: [facility] Reason For Study: Bradycardia, PVC's (premature ventricular contractions) Ordering Physician: ANIA BREWER Referring Physician: ANIA BREWER Performed By: Reina Lira RDCS BSA: 2.2 m2 Height: 69 in Weight: 238 lb BP: 121/79 mmHg Procedure Echocardiogram with two-dimensional, color and spectral Doppler performed. Contrast Optison. Technically difficult study.Extremely poor acoustic windows. Limited information was obtained during study. Optison ([facility] #[id number]) given intravenously. Patient was given 5 ml [...] Procedure Note Crys Marin MD - 09/05/2023 [id number]^ERIKA^ANIA^NABIL [facility], Echocardiography Laboratory [address] [place] [address] Name: RODRI LOU : 1945 Study Date: 09/05/2023 09:51 AM Age: 78 yrs Gender: Male Patient Location: [facility] Reason For Study: Bradycardia, PVC's (premature ventricularcontractions) Ordering Physician: ANIA BREWER Referring Physician: ANIA BREWER Performed By: Reina Lira RDCS BSA: 2.2 m2 Height: 69 in Weight: 238 lb BP: 121/79 mmHg Procedure Echocardiogram with two-dimensional, color and spectral Dopplerperformed. Contrast Optison. Technically difficult study.Extremely poor acousticwindows. Limited information was obtained during study. Optison ([facility]#[id number]) given intravenously. Patient was given 5 ml [...] Ania Brewer MD CV ECHO MEIR LAINEZ documented in this encounter Visit Diagnoses Diagnosis Bradycardia Other specified cardiac dysrhythmias PVC's (premature ventricular contractions) Other premature beats documented in this encounter Administered Medications Inactive Administered Medications - up to 3 most recent administrations Medication Order MAR Action Action Date Dose Rate Site perflutren diluted 1mL to 2mL with saline (OPTISON) diluted injection 5 mL 5 mL, Intravenous, ONCE, On Sun09/05/23 at 1030, For 1 dose $Given 09/05/2023 10:19 AM CDT 5 mLs documented in this encounter Care Teams Cottonseed Meat Presser Relationship Specialty Start Date End Date Chester Schumacher PA-C [facility] [address] [place] [address] PCP - General 08/29/23 documented as of this encounter
--- OUTSIDE RECORDS SUMMARY | 2023-10-02 10:31 | XMS_ITS | Encounter Summary ---
Author Organization [place] Address [address] [place] [address] Care Team Providers Care Sales Marketing Coordinator Name Role Phone Chester Schumacher PA-C Primary Care Provider [phone] Encounter Details Date Type Department Care Team (Latest Contact Info) Description 09/02/2023 Travel Social History Tobacco Use Types Packs/Day [...] on filedocumented in this encounter Care Teams Sales Marketing Coordinator Relationship Specialty Start Date End Date Chester Schumacher PA-C [address] [place] [address] PCP - General 08/29/23 documented as of this encounter
--- OUTSIDE RECORDS SUMMARY | 2023-10-02 10:31 | XMS_ITS | Encounter Summary ---
Author Organization [place] Address [address] [place] [address] Care Team Providers Care White Sourer Name Role Phone Chester Schumacher PA-C Primary Care Provider [phone] Encounter Details Date Type Department Care Team (Latest Contact Info) Description 09/05/2023 Travel Social History Tobacco Use Types Packs/Day [...] on filedocumented in this encounter Care Teams White Sourer Relationship Specialty Start Date End Date Chester Schumacher PA-C [facility] [address] [place] [address] PCP - General 08/29/23 documented as of this encounter
--- OUTSIDE RECORDS SUMMARY | 2023-10-02 10:31 | XMS_ITS | Encounter Summary ---
Author Organization [place] Address [address] [place] [address] Care Team Providers Care Merchandise Support Associate Name Role Phone Unavailable Primary Care Provider Unavailabl e Reason for Visit * Reason Onset Date Comments Referral 08/01/2023 Pt referred to [facility] by Chester Schumacher PA-C for 4.2 cm AAA Encounter Details Date Type Department Care Team (Late st Contact Info) Description 08/01/2023 Telephone [facility] [place] [id number] [facility] [address] [place] [address] Nurse, [facility] Referral (Pt referred to [facility] by Chester Schumacher PA-C for 4.2 cm AAA) Social History Tobacco Use Types Packs/Day Years Used Date Smoking Tobacco: Never Assessed Adolescent Education Answer Date Record ed Getting School Help Needed Not on file 11/26 Sex and Gender Information Value Date Recorded Sex Assigned at Not on file Gender Identity Not on file Sexual Orientation Not on file documented as of this encounter Miscellaneous Notes * Telephone Encounter - Monika Madrigal - 08/02/2023 11:04 AM CDT Patient scheduled 08/29/[address] Brewer * Telephone Encounter - Darline Gomez RN - 08/02/2023 10:43 AM CDT Per fax referral, it stated Please call Rodri Tousignant to schedule at [phone]). However, fax paperwork also lists [phone] as a secondary number for this patient. * Telephone Encounter - Monika Madrigal - 08/02/2023 9:07 AM CDT Tried to call patient - number is not in service. No alternative contacts listed. * Telephone Encounter - Darline Gomez RN - 08/01/2023 3:00 PM CDT Removed CTA order. Per fax, imaging reported AAA was 4.2 cm in size, however, office note in paper work stated AAA was 5.5 cm. Information Systems Professor had loaded CTA based off of 5.5 cm noted. Information Systems Professor contactedKate RN from patients' PCP clinic [facility] & verified the patient's AAA was 4.2 cm in size. * Telephone Encounter - Monika Madrigal - 08/01/2023 2:52 PM CDT Routing back to [facility] staff editor for clarification. Patient has pending CTA orders but no mention of imaging is made in the encounter below. Please route back to scheduling pool and advise. * Telephone Encounter - Darline Gomez RN - 08/01/2023 8:22 AM CDT Referral received via Fax on 07/24/2023. Pt referred to [facility] by Chester Schumacher PA-C for 4.2 cm AAA. Information Systems Professor spoke to FADIA Love at [facility] to clarify size of AAA; as faxed paper work is not clear. Kate clarified w/ provider Endy BUTLER, patient's AAA is 4.2 cm. US completed 07/24/2023 at [facility] being pushed to PACS. Routing to scheduling to coordinate the following: NEW VASCULAR PATIENT consult with Vascular Medicine Please schedule this next available; please call patient . Appt note: Pt referred to [facility] by Chester Schumacher PA-C for 4.2cm AAA. US abd pushed to PACS from [facility]. Fax referral faxed to HIM. documented in this encounter Plan of Treatment Not on file documented as of this encounter Visit Diagnoses Not on filedocumented in this encounter
--- OUTSIDE RECORDS SUMMARY | 2023-10-02 10:31 | XMS_ITS | Encounter Summary ---
Author Organization [place] Address [address] [place] [address] Care Team Providers Care Social Worker Delinquency Prevention Name Role Phone Chester Schumacher PA-C Primary Care Provider [phone] Encounter Details Date Type Department Care Team (Latest Contact Info) Description 08/31/2023 Travel Social History Tobacco Use Types Packs/Day [...] on filedocumented in this encounter Care Teams Social Worker Delinquency Prevention Relationship Specialty Start Date End Date Chester Schumacher PA-C [address] [place] [address] PCP - General 08/29/23 documented as of this encounter
--- OUTSIDE RECORDS SUMMARY | 2023-10-02 10:31 | XMS_ITS | Encounter Summary ---
Author Organization [place] Address [address] [place] [address] Care Team Providers Care Nurse Receptionist Name Role Phone Chester Scuhmacher PA-C Primary Care Provider [phone] Encounter Details Date Type Department Care Team (Late st Contact Info) Description 08/31/2023 8:45 AM CDT [facility] [address] [place] [address] Bradycardia; PVC's (premature ventricular contractions); Hyperlipidemia LDL goal <70; Infrarenal abdominal aortic aneurysm (AAA) without rupture (H24) 4.2 cm on US 07/2023 [facility] Social History Tobacco Use Types Packs/Day Years [...] Miscellaneous Notes * Result Encounter Note - Ana Brewer MD - 08/31/2023 8:45 AM CDT Will discus at his visit documented in this encounter Plan of Treatment Not on file documented as of this encounter Procedures Procedure Name Priority Date/Time Associated Diagnosis Comments CBC WITH PLATELETS AND DIFFERENTIAL Routine 08/31/2023 8:58 AM CDT Infrarenal abdominal aortic aneurysm (AAA) without rupture (H24) 4.2 cm on US 07/2023 [facility] CBC WITH PLATELETS & DIFFERENTIAL Routine 08/31/2023 8:58 AM CDT Infrarenal abdominal aortic aneurysm (AAA) without rupture (H24) 4.2 cm on US 07/2023 [facility] TSH WITH FREE T4 REFLEX Routine 08/31/2023 8:58 AM CDT Bradycardia PVC's (premature ventricular contractions) MAGNESIUM Routine 08/31/2023 8:58 AM CDT Hyperlipidemia LDL goal <70 LIPID REFLEX TO DIRECT LDL PANEL Routine 08/31/2023 8:58 AM CDT Hyperlipidemia LDL goal <70 COMPREHENSIVE METABOLIC PANEL Routine 08/31/2023 8:58 AM CDT Hyperlipidemia LDL goal <70 documented in this encounter Results * CBC with platelets and differential (08/31/2023 [...] 8:58 AM CDT 08/31/2023 8:58 AM CDT Ana Brewer MD LAB - BLOOD ORDERABLES [facility] [address] [facility] (no room number, 1st floor of clinic) [place] [address], [facility] [phone] * Lipid panel reflex to direct LDL Fasting (08/31/2023 8:58 AM CDT) [facility] Signature Cholesterol 157 <200 mg/dL 08/31/2023 11:41 PM [...] ??Greater than or equal to 220 mg/dL Ana Brewer MD LAB - BLOOD ORDERABLES [facility] [place] [facility] [address] [facility], [address] [place] [address] * Magnesium (08/31/2023 8:58 AM CDT) Magnesium 2.1 1.7 - 2.3 mg/dL 08/31/2023 11:41 PM CDT [facility] Blood BLOOD SPECIMEN / Unknown Venipuncture / Unknown 08/31/2023 8:58 AM CDT 08/31/2023 8:58 AM CDT Ana Brewer MD LAB - BLOOD ORDERABLES [facility] [place] [facility] [address] [facility], [address] [place] [phone] * (ABNORMAL) Comprehensive metabolic panel (08/31/2023 [...] 8:58 AM CDT 08/31/2023 8:58 AM CDT Ana Brewer MD LAB - BLOOD ORDERABLES [facility] [place] [facility] [address] [facility], [address] [phone] * TSH with free T4 reflex (08/31/2023 8:58 AM CDT) TSH 2.62 0.30 - 4.20 uIU/mL 08/31/2023 11:41 PM CDT [facility] Blood BLOOD SPECIMEN / Unknown Venipuncture / Unknown 08/31/2023 8:58 AM CDT 08/31/2023 8:58 AM CDT Ana Brewer MD LAB - BLOOD ORDERABLES [facility] [place] [facility] [address] [facility], [address] [place] [address], [facility] documented in this encounter Visit Diagnoses Diagnosis Bradycardia Other specified cardiac dysrhythmias PVC's (premature ventricular contractions) Other premature beats Hyperlipidemia LDL goal <70 Other and unspecified hyperlipidemia Infrarenal abdominal aortic aneurysm (AAA) without rupture (H24) 4.2 cm on US 07/2023 [facility] documented in this encounter Care Teams Nurse Receptionist Relationship Specialty Start Date End Date Chester Schumacher PA-C [facility] [address] [place] [address] PCP - General 08/29/23 documented as of this encounter
--- OUTSIDE RECORDS SUMMARY | 2023-10-02 10:32 | XMS_ITS | Clinical Summary ---
Author Organization [employer] [facility] Address [place], [place] [address] Care Team Providers Care Drill Sharpener Name Role Phone Robby Noel MD Primary [...] Comments Blood Pressure 114/72 02/09/2010 10:47 AM SPOOL WINDER Pulse 58 02/09/2010 10:47 AM SPOOL WINDER Temperature - - Respiratory Rate - - Oxygen Saturation - - Inhaled Oxygen Concentration - - Weight 110.2 kg (243 lb) 04/24/2008 9:23 AM SPOOL WINDER Height 177.8 cm (5' 10) 04/24/2008 9:23 AM SPOOL WINDER Body Mass Index 34.87 04/24/2008 9:23 AM SPOOL WINDER Plan of Treatment Health Maintenance Due Date [...] Influenza for age 65+ 10/21/2023 Care Teams Drill Sharpener Relationship Specialty Start Date End Date Robby Noel MD PCP - General 03/19/08
--- OUTSIDE RECORDS SUMMARY | 2023-10-02 10:32 | XMS_ITS | Continuity of Care Document ---
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 [facility] History of malignant neoplasm of bladder Active Condition [facility] History of osteomyelitis Active Condition [facility] History of right total knee replacement Active Condition [facility] History of SARS-CoV-2 Active Condition [facility] History of total hip arthroplasty Active Condition Oct 19 Entered By: CARLOS HOUSTON I Comment: LeftDec 27, 2022 Entered By: DK WADE Comment: bl- TKA [facility] Hyperlipidemia (SCT [id number]) Active Condition [facility] Diagnosis: ICD-10-CM Z00.00 Encntr for general adult medical exam w/o abnormal findings Active Diagnosis [facility] Medications Combined list of outpatient medications from Department of Defense and Veterans Affairs facilities.Medications provided include 1) outpatient medications from the last 15 months, and 2) patient-reported medications. Medication Details Route Status Patient Instructions Prescription Expires Prescription Number Last Dispense Date Ordering Provider Order Date Order Qty Source ALBUTEROL 90MCG/ACTUA T (CFC-F) INHL,ORAL,8 .5GM DOSE COUNTER ALBUTERO L 90MCG/AC TUAT (CFC-F) INHL,ORA L,8.5GM DOSE COUNTER Non-VA INHALE 1 PUFF BY INHALATI ON EVERY 6 HOURS NEEDED Oct 19, 2020 Non-VA Document ed by: THAD HOUSTONDA I Document ed at: [facility] RESPIR ATORY (INHAL ATION) ACTIVE GORDON HOUSTON I 2020 [facility] ASPIRIN 81MG TAB,CHEWABL E ASPIRIN 81MG TAB,CHEW ABLE Non-VA CHEW ONE TABLET BY MOUTH EVERY DAY Oct 19, 2020 Non-VA Document ed by: THAD HOUSTONDA I Document ed at: [facility] ORAL ACTIVE GORDON HOUSTON I 2020 [facility] CALCIUM CARBONATE TAB CALCIUM CARBONAT E TAB Non-VA TAKE WITH VITAMIN D 400UNIT BY MOUTH EVERY DAY Oct 19, 2020 Non-VA Document ed by: THAD HOUSTONDA I Document ed at: [facility] ORAL ACTIVE GORDON HOUSTON I 2020 [facility] CRANBERRY EXTRACT CAP/TAB CRANBERR Y EXTRACT CAP/TAB Non-VA TAKE 1 CAPSULE BY MOUTH EVERY DAY Oct 19, 2020 Non-VA Document ed by: THAD HOUSTON I Document ed at: [facility] ORAL ACTIVE GORDON HOUSTON I 2020 [facility] MULTIVITAMI NS CAP/TAB MULTIVIT AMINS CAP/TAB Non-VA TAKE ONE TABLET BY MOUTH EVERY DAY Oct 19, 2020 Non-VA Document ed by: THAD HOUSTONDA I Document ed at: [facility] ORAL ACTIVE GORDON HOUSTON I 2020 [facility] SILDENAFIL CITRATE 100MG TAB SILDENAF IL CITRATE 100MG TAB Non-VA TAKE ONE TABLET BY MOUTH EVERY DAY NEEDED Oct 19, 2020 Non-VA Document ed by: THAD HOUSTON I Document ed at: [facility] ORAL ACTIVE ROSEMARIEGORDON NDA I 2020 [facility] SIMVASTATIN 40MG TAB SIMVASTA TIN 40MG TAB Non-VA TAKE ONE-HALF TABLET BY MOUTH AT BEDTIME Oct 19, 2020 Non-VA Document ed by: THAD HOUSTON I Document ed at: [facility] ORAL ACTIVE ROSEMARIEGORDON ARMENDARIZ NDA I 2020 [facility] Immunizations Combined list of available immunizations from the Department of Defense and Veterans Affairs facilities. Immunization Series Date Given Administered By Site Reaction Lot Number CVX Code Drug Vice President Of Communications Status Comments Source COVID-19 ([employer]), MRNA, LNP-S, PF, JAVIER-SUCROSE, 30 MCG/0.3 ML (AGES 12+ YEARS) 1 2022 GEBREKIRSTOS, ABDIAS E RIGHT DELTO ID [id number] complet ed [facility] INFLUENZA, HIGH-DOSE, QUADRIVALENT 2022 GEBREKIRSTOS, ABDIAS E RIGHT DELTO ID [id number] 197 complet ed [facility] COVID-19 ([employer]), MRNA, LNP-S, BIVALENT BOOSTER, PF, 30 MCG/0.3 ML DOSE 1 2021 300 complet ed [facility] INFLUENZA, UNSPECIFIED FORMULATION 2021 88 complet ed [facility] COVID-19 ([employer]), MRNA, LNP-S, PF, 30 MCG/0.3 ML DOSE, JAVIER-SUCROSE (AGES 12+ YEARS) 2 2021 217 complet ed [facility] COVID-19 ([employer]), MRNA, LNP-S, PF, 30 MCG/0.3 ML DOSE 1 2020 208 complet ed [facility] ZOSTER RECOMBINANT 2 2020 187 complet ed [facility] ZOSTER RECOMBINANT 1 2020 187 complet ed [facility] INFLUENZA, UNSPECIFIED FORMULATION 2019 88 complet ed [facility] ZOSTER RECOMBINANT 1 2018 187 complet ed [facility] PNEUMOCOCCAL POLYSACCHARID E PPV23 2017 33 complet ed [facility] PNEUMOCOCCAL CONJUGATE PCV 13 2015 133 complet ed [facility] TD(ADULT) UNSPECIFIED FORMULATION 2015 139 complet ed [facility] Vital Signs Combined list of inpatient and outpatient Vital Signs from Department of [facility] and [facility], ranging from 12 months to all on record, depending upon the facility. Vital Sign Value Date Comments Source Encounters Combined list of: 1) Encounters from Department Veterans Affairs facilities going back up to thelast 18 months. 2) Encounters from the Department of [facility] facilities going back up to 280 months. Location Location Details Encounter Type Encounter Number Reason For Visit Attending Provider ADM Date DC Date Status Disposition Source [facility] ADMN SARSCOV2 VACC 1 DOSE [id number] Diagnos is: ICD-10- CM Z00.00 Encntr for general adult medical exam w/o abnorma l finding s
NALLUSAMY, VASUMATHI 12/27 [facility] Social History Combined list of available smoking, tobacco, and other social history from Department of Defense and Veterans Affairs facilities. Social History Type Response Date Comment Sourc e Tobacco smoking status [facility] FORMER USER 12/27/2022 [facility] of [facility]2022 [facility] History of tobacco use [facility] 12/29/2021 [facility] History of tobacco use MS-TOBACCO FORMER USER 10/19/2020 [facility]
--- OUTSIDE RECORDS SUMMARY | 2023-10-02 10:32 | XMS_ITS | Clinical Summary ---
Author Organization [facility] Address [address] [place] [address] Care Team Providers Care Grievance And Appeals Coordinator Name Role Phone Unavailable Primary Care Provider [...] for each transition of care or referral. [facility] Social History Tobacco Use Types Packs/Day Years [...] ( - 2022-2 4 season) 2022 Influenza (#1) 2023 HepA Aged Out No longer eligi [...]
[2023-10-02] MEDS: LACTATED RINGERS 1000 ML 1,000 ML 100 ML IV (10:35)
[2023-10-02] MEDS: ACETAMINOPHEN 500 MG TABLET 1000 MG PO ×3 (11:20→23:44)
[2023-10-02] MEDS: CELECOXIB 200 MG CAPSULE PO (11:20)
[2023-10-02] MEDS: OXYCODONE (CR) 10 MG TAB.ER.12H PO (11:25)
[2023-10-02] MEDS: fentaNYL 100 MCG/2 ML inj IVP (11:30)
[2023-10-02] MEDS: MIDAZOLAM HCL 1 MG/ML inj IVP (11:30)
--- NOTE | 2023-10-02 11:45 | CRLHL7_ITS ---
For Patients: As a result of the Cures Act, medical imaging exams and procedure reports are released immediately into your electronic medical record. You may view this report before your referring provider. If you have questions, please contact your health care provider. INDICATION: Right total hip. TECHNIQUE: Two spot images of the pelvis submitted. 16.19 mGy fluoroscopy dose provided. No radiologist involvement. FINDINGS: Bilateral hip arthroplasties noted. Dictated by Perfecto Vazquez MD @ 10/03/2023 9:50:01 AM (Electronically Signed)
--- NOTE | 2023-10-02 11:48 | P.NB_ITS ---
Nerve Block Nerve Block Time Seen by Provider: 11:40 Date Seen: 10/02/23 Type of block requested by surgeon for post-operative analgesia: SALLY/LFCN Side: right Time out performed: Yes Verification of patient name: Yes Verification of date of : Yes Site marking: site marked Name of person performing procedure: Jerome Continuous monitoring Was continuous monitoring of O2 sat, B/P, school lunch monitor, recorded every 15 minutes?: Yes Procedure Checklist: sterile prep, needles and gloves Ultrasound guided. Images saved: Yes Medications given in 5ml increments after negative aspiration: Ropivicaine %: 0.5 mL: 30 Needle gauge: 20 Decadron (mg): 10 Precedex (mcg): 25 Patient tolerated procedure well: Yes Additional comments: Needle noted below psoas tendon needle noted adjacent to LFCN Block Charges Block Charge (with Pro Fee): Other Periph Nerve Block Use of Ultrasound Machine for Block: Yes- US Guidance/pain block
--- NOTE | 2023-10-02 11:49 | W.ANESCHARGE ---
Anesthesia Charges Start Date/Time Anesthesia Start Date: 10/02/23 Anesthesia Start Time: 11:54 Stop Date/Time Anesthesia Stop Date: 10/02/23 Anesthesia Stop Time: 14:29 Summary Extremes of Age - Over 70 or under 1: MDA
[2023-10-02] MEDS: SODIUM CHLORIDE 0.9 % (FLUSH) 10 ML SYRINGE IVF (11:53)
--- NOTE | 2023-10-02 11:57 | SUR.PREOP ---
The 25mg Metoprolol brought by the patient are examined and I have determined that they are labeled by the patient's pharmacy for this patient as prescribed.? The bottle is intact, recently obtained, and appear to be correct. Pt instructed to take 25mg tablet by Anesthesia prior to surgery.
[2023-10-02] MEDS: CEFAZOLIN 2 GM INJ IVP (12:10)
[2023-10-02] MEDS: TRANEXAMIC ACID 100 MG/ML INJ 1000 MG IV (12:11)
--- NOTE | 2023-10-02 12:26 | P.ANES_ITS ---
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
--- NOTE | 2023-10-02 13:41 | CRLHL7_ITS ---
For Patients: As a result of the Century Cures Act, medical imaging exams and procedure reports are released immediately into your electronic medical record. You may view this report before your referring provider. If you have questions, please contact your health care provider. INDICATION: Postop right hip. TECHNIQUE: AP pelvis and lateral right hip. FINDINGS: New right LI. Components appear well seated. Adjacent postop soft tissue air. Left LI also noted. Dictated by Perfecto Vazquez MD @ 10/03/2023 10:17:41 AM (Electronically Signed)
--- NOTE | 2023-10-02 13:43 | P.ORPRC_ITS ---
Procedure Note Date of procedure: 10/02/23 Procedure: PREOPERATIVE DIAGNOSIS: Right hip osteoarthritis POSTOPERATIVE DIAGNOSIS: Right hip osteoarthritis NAME OF OPERATION: Right total hip arthroplasty SURGEON: Abdiel Dawson MD ARMHOLE RAISER LOCKSTITCH: Ayala Quevedo PA-C, OVI Gonzalez IMPLANTS: 1. J[employer]J Fontana # 56 sector ingrowth cup 2. 36 x 56 +4 neutral polyethylene 3. Actis # 8 standard collared ingrowth stem 4. 36 + 5 cobalt chrome femoral head ANESTHESIA: General ESTIMATED BLOOD LOSS: 700 cc COMPLICATIONS: None SPECIMENS: None DRAINS: None PREOPERATIVE ANTIBIOTICS: Ancef 2 grams INDICATIONS: The patient is a 78-year-old with a longstanding history of severe, unrelenting right hip pain secondary to end-stage right hip osteoarthritis. Despite appropriate nonoperative management, including activity modification, use of an assist device, anti-inflammatories, [id number] pain medication, physical therapy and injections, they continue to have pain and disability. Operative intervention was offered. The risks, benefits and expected outcomes were discussed in detail. These included but were not limited to: Infection, bleeding, injury to blood vessel or nerve, venous thromboembolism. All questions were answered to their satisfaction. Use of an advertising assistant manager was necessary throughout the case for patient positioning and safety, soft tissue retraction and closure. PROCEDURE: The patient was placed supine on the [place] table. General anesthesia was administered. The advertising assistant manager made sure the patient was properly positioned. The right hip was prepped and draped in the usual sterile fashion. The image intensifier was brought in for a perfect AP pelvis and a perfect double tear drop AP view of each hip which were used for intraoperative templating with our fluoroscopic guide. An oblique incision was made 3 cm distal and 3 cm lateral to the anterior superior iliac spine. The advertising assistant manager retracted the soft tissues to protect them. Subcutaneous dissection was taken with electrocautery to the superficial fascia. The fascia was divided in line with the incision. Blunt dissection was carried medially to the tensor fascia aquiles and sartorius interval. Deep dissection was carried with electrocautery. The circumflex vessels were cauterized and divided. The capsule was exposed and then divided in a T- fashion, tagged with #1 Ethibond sutures. Retractors were placed in the joint, held by the advertising assistant manager. The corkscrew was placed in the femoral head. The neck cut was made in the subcapital region. We made a second neck cut more distal. The napkin ring of bone was removed. The femoral head was removed intact. Acetabular retractors were placed, held by the advertising assistant manager. The labrum was sharply debrided. The capsule was released. The 43 mm reamer was used to the true medial wall. We then enlarged in 2 mm increments using the image intensifier for our reamer placement. We impacted the cup which had excellent purchase. We placed the polyethylene. Attention was then turned to the proximal femur. The limb was placed in 140 degrees of external rotation, maximum extension and adduction. A significant amount of time was spent releasing the capsule to allow us to deliver the femur into the wound and complete the femoral side safely. Retractors were held by the advertising assistant manager throughout the femoral preparation. The box worker and canal finder were used. Broaches were used to a stable size. The calcar reamer was used. Trial components were placed. The hip was reduced and was found to be stable with appropriate soft tissue tension. Length and offset had been nicely restored using the image intensifier and our fluoroscopic guide. Trial components were removed. The stem was impacted. We placed the femoral head. Again, the hip was reduced and was found to be stable with appropriate soft tissue tension. Length and offset had been nicely restored. The advertising assistant manager did a three minute dilute Betadine solution soak. The advertising assistant manager irrigated the wound with 3 liters of normal saline via pulse lavage. The advertising assistant manager repaired the anterior capsule with a #1 Vicryl and our previously placed Ethibond sutures. The advertising assistant manager closed the fascia over the tensor fascia aquiles with a #1 PDO Stratafix, subcutaneous tissues with 2-0 Vicryl, skin with a running 3-0 Stratafix and glue. A dry dressing was applied by the advertising assistant manager. Sponge and needle counts were correct x 2. The patient tolerated the procedure well; there were no apparent complications. They were awakened and extubated in the operating room, sent to the Post-Anesthesia Care Unit in satisfactory condition. PLAN: 1. The patient will be mobilized with physical therapy, weight-bearing as tolerates 2. Xarelto x 5 days then aspirin x 30 days will be used for DVT prophylaxis 3. The patient will be discharged once medically appropriate
[2023-10-02] MEDS: LACTATED RINGERS 1000 ML 1,000 ML 35 ML IV (14:17)
[2023-10-02] MEDS: HYDROmorphone 0.5 mg/0.5 ml inj IVP (16:00)
[2023-10-02] MEDS: LACTATED RINGERS 1000 ML 1,000 ML 75 ML IV (17:54)
[2023-10-02] MEDS: CEFAZOLIN 2 GM in 0.9 % SODIUM CHLORIDE Mini-bag 100 ML IVPB (17:55)
--- NOTE | 2023-10-02 18:21 | P.IMCN_ITS ---
Date of Consult Patient: [facility] Patient Consult date: 10/02/23 Requesting Physician: Orthopedics Primary Care Provider: Chester Schumacher PA-C Consult Narrative Reason for consult: CAD, paroxysmal non-sustained VT, peripheral vascular disease - s/p L LI Narrative: Rodri Kirkland is a 78 year old man presents status post elective left total hip arthroplasty with Dr. Dawson, orthopedic surgery, [facility], today, 10/02/2023. Estimated blood loss 700 mL. Notes pain for the most part adequately controlled. Did have intraoperative systolic blood pressures as low as 80 mmHg. Did take metoprolol succinate 25 mg immediately prior to surgery. Was started on the metoprolol succinate about 7-10 days ago by Cardiology due to paroxysmal nonsustained ventricular tachycardia. Denies chest heaviness, pressure, tightness, or pain. Denies anginal equivalent. Denies dyspnea. Denies syncope or near-syncope. Denies nausea vomiting. Denies palpitations or chest fluttering. Review of Systems Status of ROS: Reports: 6 or more systems reviewed and unremarkable except as noted in History and below [facility] Medical History (Updated 10/02/23 @ 18:37 by Jf Doty MD) Obesity ?E66.9 - Obesity, unspecified (ICD-10) Hearing difficulty of both ears ?H91.93 - Unspecified hearing loss, bilateral (ICD-10) Hyperlipidemia ?E78.5 - Hyperlipidemia, unspecified (ICD-10) History of malignant neoplasm of bladder ?Z85.51 - Personal history of malignant neoplasm of bladder (ICD-10) Osteoarthritis of right hip ?M16.11 - Unilateral primary osteoarthritis, right hip (ICD-10) Chronic low back pain ?M54.50 - Low back pain, unspecified (ICD-10) ?G89.29 - Other chronic pain (ICD-10) Facet arthritis, degenerative, lumbar spine ?M47.816 - Spondylosis without myelopathy or radiculopathy, lumbar region (ICD-10) AAA (abdominal aortic aneurysm) ?I71.40 - Abdominal aortic aneurysm, without rupture, unspecified (ICD-10) Peripheral artery disease ?I73.9 - Peripheral vascular disease, unspecified (ICD-10) Ventricular tachycardia (paroxysmal) ?I47.29 - Other ventricular tachycardia (ICD-10) History of osteomyelitis ?Z87.39 - Personal history of other diseases of the musculoskeletal system and connective tissue (ICD-10) Surgical History (Updated 10/02/23 @ 18:38 by Jf Doty MD) Status post left knee replacement (09/26/22) ?Z96.652 - Presence of left artificial knee joint (ICD-10) 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) ?Z96.651 - Presence of right artificial knee joint (ICD-10) History of total left hip replacement (~03/2006) ?Z96.642 - Presence of left artificial hip joint (ICD-10) History of bladder surgery (~2003) ?Z98.890 - Other specified postprocedural states (ICD-10) Family History Father Cardiovascular disease Mother High blood pressure Diabetes Hypothyroidism Sister Deep vein thrombosis Social History Narrative: does not use illicit drugs former smoker occasional alcohol consumption What is your current living situation?: I presently have a place to live Problems where you live: no known problems In the past 12 months, utilities in danger of being shut off: no In past 12 months, lack of transportation kept you from medical appts, meetings, work, or getting things needed for daily living: no In the past 12 mos, have been you worried that your food would run out before you had money to buy more?: never true In the past 12 mos, the food you bought just didn't last and you didn't have m oney to buy more?: never true Highest level of school completed/degree received: high school graduate Smoking Status: Former smoker What tobacco products do you use: cigarettes Smoking packs per day: 1 Smoking cigarettes per day: 20.0 Years smoked: 40 Smoking pack-years: 40.00 Smoking quit date/years: >15 years ago and cigars Do you use any of these nicotine containing products: None Second hand tobacco smoke exposure: No How often do you have a drink containing alcohol: 4 or more times a week Alcohol type: beer and wine How many standard drinks containing alcohol do you have on a typical day: 1 or 2 How often do you have six or more drinks on one occasion: Never AUDIT-C Alcohol total score: 4 Non-prescribed substance use: denies use Caffeine: Yes How often does anyone, including family, friends and others, physically hurt you : never How often does anyone, including family, friends and others, insult or talk down to you: never How often does anyone, including family, friends and others, threaten you with harm: never How often does anyone, including family, friends and others, scream or curse at you: never Little interest or pleasure in doing things: not at all Feeling down, depressed, or hopeless: not at all service: Yes Meds Home Medications and Allergies Home Medications ?Medication ?Instructions ?Recorded ?Confirmed ?Type aspirin 81 mg chewable tablet 81 mg PO DAILY 09/12/21 10/02/23 History calcium carbonate 600 mg-vitamin 1 tab PO DAILY 09/12/21 10/02/23 History D3 10 mcg (400 unit) chewable tablet (Calcium 600 with Vitamin D3) cranberry 500 mg capsule 500 mg PO BID 09/12/21 10/02/23 History multivitamin 1 tab PO QAM 09/12/21 10/02/23 History sildenafil 100 mg tablet 100 mg PO DAILY PRN 09/12/21 10/02/23 History turmeric 400 mg capsule 400 mg PO DAILY 07/19/22 10/02/23 History simvastatin 20 mg tablet 20 mg PO HS 09/26/22 10/02/23 History Home Medication Comments: Metoprolol succinate 25 mg once daily started in early September 2023 Allergies Allergy/AdvReac Type Severity Reaction Status Date / Time No Known Drug Allergies Allergy Verified 10/02/23 10:41 Exam Narrative: Exam Narrative: I examine him in his hospital room after surgery. He is awake and interactive. Vision and hearing are adequate. Appears comfortable. Alert and oriented x3. Friendly, articulate, cooperative. Neck is supple. Midline trachea. No head neck lymphadenopathy. No JVD or carotid bruits. Lungs are clear to auscultation without wheezing, rhonchi, or rales. Barrel shaped chest. Chest wall excursions with respiratory efforts are full. Heart tones with regular rhythm, occasional pause. No murmur, gallop, or rub. PMI is not laterally displaced. Abdomen is obese with active bowel sounds, soft, nontender. No focal motor neurologic deficits. Const: Vital Signs, click to edit/add: Vital Signs - 24 hr 10/02/23 11:29 10/02/23 11:30 10/02/23 11:35 Temperature 98.0 F Pulse Rate 81 90 89 Respiratory Rate 16 16 16 Blood Pressure 112/86 126/94 H 125/77 Pulse Oximetry 93 93 93 Oxygen Delivery Me thod Room Air Nasal Cannula Nasal Cannula Oxygen Flow Rate 2 2 10/02/23 11:40 10/02/23 14:24 10/02/23 14:30 Temperature 97.3 F L Pulse Rate 88 77 75 Respiratory Rate 16 16 14 Blood Pressure 125/74 93/59 L 95/64 Pulse Oximetry 93 94 93 Oxygen Delivery Me thod Nasal Cannula Nasal Cannula Oxygen Flow Rate 2 2 10/02/23 14:35 10/02/23 14:40 10/02/23 14:45 Temperature Pulse Rate 72 74 71 Respiratory Rate 14 12 14 Blood Pressure 96/70 94/61 93/65 Pulse Oximetry 95 92 94 Oxygen Delivery Me thod Oxygen Flow Rate 10/02/23 14:50 10/02/23 14:55 10/02/23 15:00 Temperature Pulse Rate 76 76 72 Respiratory Rate 14 12 12 Blood Pressure 91/56 L 82/70 L 90/62 Pulse Oximetry 93 96 98 Oxygen Delivery Me thod Oxygen Flow Rate 1 10/02/23 15:05 10/02/23 15:10 10/02/23 15:15 Temperature 97.0 F L 96.2 F L Pulse Rate 76 69 70 Respiratory Rate 13 12 14 Blood Pressure 98/68 94/67 83/61 L Pulse Oximetry 97 97 97 Oxygen Delivery Me thod Nasal Cannula Oxygen Flow Rate 1 10/02/23 15:30 Temperature Pulse Rate 63 Respiratory Rate 14 Blood Pressure 89/59 L Pulse Oximetry 94 Oxygen Delivery Me thod Nasal Cannula Oxygen Flow Rate 1 Assessment and Plan Assessment and plan (1) Osteoarthritis of right hip: Status: Acute (2) Status post total hip replacement, right: Problem comment: - Dr. Dawson, 10/02/2023, [facility] - agree with venous thromboembolism prophylaxis - agree with perioperative IV antibiotic prophylaxis - PT and OT are following with Orthopedic surgery - hospitalist will follow with Orthopedic surgery while patient is still in hospital Status: Acute (3) Ventricular tachycardia (paroxysmal): Problem comment: - noted in Zio patch assessment from August to September 2023 -Lexiscan stress test completed on 09/26/2019 for negative for ischemia or infarct with EF of 58% - was started on metoprolol succinate 25 mg once daily after the stress test - radiation monitor in hospital Status: Acute (4) Postoperative hypotension: Problem comment: - IV fluid - decrease metoprolol succinate dose to 12.5 mg every morning, hold if systolic blood pressure less than 100 mmHg Status: Acute (5) AAA (abdominal aortic aneurysm): Problem comment: 08/12- US 4.2 cm Status: Acute (6) Peripheral artery disease: Status: Acute (7) Obesity: Status: Acute Plan 1. Reviewed impression and recommendation with patient, , and granddaughter. 2. Answered their questions to their satisfaction. 3. They are agreeable with above stated plans and recommendations. 4. Hospitalist portion of discharge orders is completed. Total Time Spent Total Time Spent: 60 minutes
[2023-10-02] MEDS: SENNOSIDES 1 TAB TABLET 2 TAB PO (21:06)
[2023-10-02] MEDS: SIMVASTATIN 20 MG TABLET PO (21:06)
[2023-10-02] MEDS: OXYCODONE 5 MG TABLET PO (22:10)
--- NOTE | 2023-10-02 23:03 | PC.NURSE ---
Patient is up ambulating to the BR with assist of 1, walker and gait belt. Sat in the chair for the evening. Taking oxycodone for pain. Drinking fluids, tolerating a regular diet. Denies nausea. Saline locked. Dressing to right hip is clean, dry and intact. Tolerating ice to site.
[2023-10-03] MEDS: OXYCODONE 5 MG TABLET PO ×2 (00:59→07:45)
[2023-10-03 02:16] VITALS: BP 117/70; PULSE 73; RESP 16; TEMP 36.7; O2SAT 90
[2023-10-03] MEDS: CEFAZOLIN 2 GM in 0.9 % SODIUM CHLORIDE Mini-bag 100 ML IVPB (02:26)
[2023-10-03] MEDS: ACETAMINOPHEN 500 MG TABLET 1000 MG PO (06:27)
[2023-10-03 06:33] LABS: Hematocrit 38.9 % (37.0-53.0); Hemoglobin* 12.6 gm/dL (13.5-17.5); Immature Granulocytes Abs Auto 0.02 K/uL (0.00-0.30); Immature Granulocytes Pct Auto 0.2 %; Lymphocytes Percent Auto 10.8 % (20-44); Mean Corpuscular HGB Conc 32 gm/dL (32-36); Mean Corpuscular Hemoglobin 31 pg (26-34); Mean Corpuscular Volume 94 fL (80-100); Monocytes Percent Auto 13.8 % (0.0-11.0); Neutrophils Percent Auto 75.2 % (42.0-72.0); Platelet Count* 164 K/uL (140-440); RDW Coefficient of Variation % 14.1 % (11.5-15.5); Red Blood Count 4.13 m/uL (4.30-5.90); White Blood Count* 10.92 K/uL (4.50-11.00)
[2023-10-03 06:34] LABS: Slide Review Reflex No
[2023-10-03 06:46] LABS: Potassium* 4.8 mmol/L (3.6-5.1); Sodium* 132 mmol/L (135-149)
[2023-10-03 06:49] LABS: Creatinine* 0.7 mg/dL (0.5-1.5); Estimated Glomerular Filt Rate 95 ml/min
[2023-10-03 06:50] LABS: Blood Urea Nitrogen* 16 mg/dL (7-30)
[2023-10-03 07:32] VITALS: BP 99/71; PULSE 71; PULSE 75; RESP 12; TEMP 37.2; O2SAT 91
[2023-10-03 07:33] VITALS: BP 106/63; PULSE 71
--- NOTE | 2023-10-03 07:35 | PM.ORPN ---
Subjective Subjective Time Seen by Provider: 07:35 Date Seen: 10/03/23 Principal diagnosis: Right hip osteoarthritis Interval history: Gene is comfortable this morning. He states his hip feels better today than it did prior to surgery. He he states ambulating has been going well. He has no dizziness or shortness of breath. Ortho Exam Narrative Exam Narrative: Alert and oriented x3. Patient is in no acute distress. Converses without labored breathing. Hearing is grossly intact. Ambulates with a walker. Examination of the right hip shows the dressing is intact. No erythema or warmth or sign of infection. No significant edema at the hip. CMS intact right lower extremity. Lower legs mild pitting edema. Calves are soft and nontender. Const Vital Signs, click to edit/add: Vital Signs - 24 hr 10/02/23 11:29 10/02/23 11:30 10/02/23 11:35 Temperature 98.0 F Pulse Rate 81 90 89 Pulse Rate [Pulse Oximeter] Respiratory Rate 16 16 16 Blood Pressure 112/86 126/94 H 125/77 Blood Pressure [Left Arm] Pulse Oximetry 93 93 93 Oxygen Delivery Method Room Air Nasal Cannula Nasal Cannula Oxygen Flow Rate 2 2 10/02/23 11:40 10/02/23 14:24 10/02/23 14:30 Temperature 97.3 F L Pulse Rate 88 77 75 Pulse Rate [Pulse Oximeter] Respiratory Rate 16 16 14 Blood Pressure 125/74 93/59 L 95/64 Blood Pressure [Left Arm] Pulse Oximetry 93 94 93 Oxygen Delivery Method Nasal Cannula Nasal Cannula Oxygen Flow Rate 2 2 10/02/23 14:35 10/02/23 14:40 10/02/23 14:45 Temperature Pulse Rate 72 74 71 Pulse Rate [Pulse Oximeter] Respiratory Rate 14 12 14 Blood Pressure 96/70 94/61 93/65 Blood Pressure [Left Arm] Pulse Oximetry 95 92 94 Oxygen Delivery Method Oxygen Flow Rate 10/02/23 14:50 10/02/23 14:55 10/02/23 15:00 Temperature Pulse Rate 76 76 72 Pulse Rate [Pulse Oximeter] Respiratory Rate 14 12 12 Blood Pressure 91/56 L 82/70 L 90/62 Blood Pressure [Left Arm] Pulse Oximetry 93 96 98 Oxygen Delivery Method Oxygen Flow Rate 1 10/02/23 15:05 10/02/23 15:10 10/02/23 15:15 Temperature 97.0 F L 96.2 F L Pulse Rate 76 69 70 Pulse Rate [Pulse Oximeter] Respiratory Rate 13 12 14 Blood Pressure 98/68 94/67 83/61 L Blood Pressure [Left Arm] Pulse Oximetry 97 97 88 Oxygen Delivery Method Room Air Oxygen Flow Rate 10/02/23 15:30 10/02/23 15:45 10/02/23 16:00 Temperature 97.2 F L Pulse Rate 63 73 76 Pulse Rate [Pulse Oximeter] Respiratory Rate 14 14 14 Blood Pressure 89/59 L 83/59 L 96/69 Blood Pressure [Left Arm] Pulse Oximetry 94 96 95 Oxygen Delivery Method Nasal Cannula Nasal Cannula Nasal Cannula Oxygen Flow Rate 1 1 1 10/02/23 16:15 10/02/23 16:30 10/02/23 17:00 Temperature Pulse Rate 75 71 80 Pulse Rate [Pulse Oximeter] Respiratory Rate 16 16 16 Blood Pressure 103/68 98/53 L 113/67 Blood Pressure [Left Arm] Pulse Oximetry 93 92 91 Oxygen Delivery Method Nasal Cannula Nasal Cannula Nasal Cannula Oxygen Flow Rate 1 1 1 10/02/23 18:00 10/02/23 19:00 10/02/23 20:08 Temperature 97.5 F L 97 F L Pulse Rate 84 83 Pulse Rate [Pulse Oximeter] Respiratory Rate 16 16 Blood Pressure 118/91 H 103/87 Blood Pressure [Left Arm] Pulse Oximetry 96 91 Oxygen Delivery Method Nasal Cannula Room Air Oxygen Flow Rate 1 10/02/23 20:18 10/02/23 23:39 10/02/23 23:39 Temperature 98.9 F Pulse Rate 84 81 Pulse Rate [Pulse Oximeter] 71 Respiratory Rate 16 Blood Pressure Blood Pressure [Left Arm] 116/75 Pulse Oximetry 90 Oxygen Delivery Method Room Air Oxygen Flow Rate 10/02/23 23:39 10/03/23 02:16 Temperature 98.1 F Pulse Rate Pulse Rate [Pulse Oximeter] 73 Respiratory Rate 16 16 Blood Pressure Blood Pressure [Left Arm] 117/70 Pulse Oximetry 90 90 Oxygen Delivery Method Room Air Room Air Oxygen Flow Rate Assessment and Plan Assessment and plan (1) Status post right hip replacement: Problem details: 10/02/2023Samir Status: Acute Assessment and Plan: Plan for discharge is today, and when they meets discharge criteria. DVT prophylaxis upon discharge Xarelto 10 mg daily for 5 days, then aspirin 81 mg b.i.d. for 30 days. Remove dressing 1 week. Observe wound and phone Orthopedics with any questions or concerns Use Ice on operative hip unrestricted. Return to clinic in 1 week with PA for a wound check Return to clinic in 6 weeks with surgeon Minimize narcotic use. Wean off and discontinue soon as possible. Activities as tolerated. No strenuous activity. Attend outpt PT
[2023-10-03 07:44] VITALS: PULSE 72
--- NOTE | 2023-10-03 07:48 | PC.NURSE ---
Pt is alert and oriented x3. Afebrile. Pt rates pain 2-5/10 in right hip, managed with cold pack, scheduled and PRN medications. Pt?s left hip dressing is CDI. Pt is up SBA with walker and gait belt, voiding, and tolerating a regular diet. ?
[2023-10-03] MEDS: RIVAROXABAN 10 MG TABLET PO (08:43)
[2023-10-03] MEDS: METOPROLOL SUCCINATE (XL) 25 MG TAB 12.5 MG PO (08:43)
[2023-10-03] MEDS: SENNOSIDES 1 TAB TABLET 2 TAB PO (08:43)
--- NOTE | 2023-10-03 10:48 | PC.NURSE ---
Discharge: Patient pleasant and cooperative. Patient slightly hypotensive, but vitally stable, lungs clear, BS WNL, IV removed, catheter intact. Patient rates right hip pain 2/10, 5 mg of oxy given once prior to therapies. Patient sba/walker. Patient tolerating regular diet and urinating well. Right hip dressing C/D/I. Patient with slight pitting edema in LE, +1. Patient signed belongings sheet and discharge paperwork. Patient nor had any further questions regarding discharge education. Patient left the floor by wheelchair to home with spouse at 1045.
--- NOTE | 2023-10-03 15:19 | PM.ANPOST ---
Post Anesthesia Note Post Anesthesia Note Patient seen: other (Patient discharged prior to being seen. Report from RN was patient was stable from anesthesia standings and had no questions) Respiratory Status: adequate Cardiovascular Status: adequate Mental Status: baseline Pain: adequate Temp: baseline Anesthetic awareness: N/A Complications: none Follow care: none
== END 2023-10-03 10:45 | disposition home or self-care (01) ==
LOC: OR 10:28 → MEDSURG 10:30
PROVIDERS: PCP Physician Assistant Medical; Visit Provider Orthopaedic Surgery
PROC: (CPT 27130; principal; 2023-10-02 11:45)
DX: M16.11 Unilateral primary osteoarthritis, right hip (principal); G89.18 Other acute postprocedural pain; I95.81 Postprocedural hypotension; I47.29 Other ventricular tachycardia; I25.10 Atherosclerotic heart disease of native coronary artery without angina pectoris; I73.9 Peripheral vascular disease, unspecified; E66.9 Obesity, unspecified; Z68.35 Body mass index [BMI] 35.0-35.9, adult; I71.40 Abdominal aortic aneurysm, without rupture, unspecified
CPT/HCPCS: 27130; 01214; 36415; 64450; 73501; 76000; 76942; 82565; 84132; 84295; 84520; 85025; 86850; 86900; 86901; 97110; 97116; 97161; 97165; 97535; 99100; A9270; C1776; J0330; J0690; J1100; J1170; J2250; J2371; J2405; J2704; J2795; J3010; J3490; J7120

== ENCOUNTER 2023-10-24 10:45 | Outpatient (RCR) | payer MEDICARE, SELFPAY ==
--- NOTE | 2023-07-04 15:12 | PT.OPE ---
PT [place] Outpatient Eval PT [facility] Outpatient Eval Start: 07/04/23 09:41 Freq: Status: Active Protocol: Document 07/04/23 13:58 LSL (Rec: 07/04/23 15:08 LSL [id number]) E-signed By Majo Srinivasan PT Physical Therapy Outpatient Evaluation Insurance Information Recert Due Date 10/02/23 Insurance Name Medicare B,Blue Cross/Blue Shield Medical Diagnosis R hip OA Treating Diagnosis impaired gait, impaired ROM, impaired strength Referring MD Dawson Subjective Subjective Pt. reports onset of R hip pain over the winter and has progressed since then and when I walk funny it flares up my back. I do have an appt. for my back on 07-09-23. Walking is okay unless I walk a lot (7- 10K) and then I feel aching in the lateral superior portion of the R hip. I could ride a bike in [place] for 5 miles and it didn't bother it. If I cross my right leg over the left and leading up stairs with R leg increase pain. Resting and Aleve prn decrease pain. I want to be able to do whatever I want to do without pain. Stiff first thing in the morning but then once I move around symptoms are good. PMH: bladder cancer 2004, L LI 2006, L TKA 2022, R TKA 2017 Pain Comments 0/10 best, 5/10 worst Date of Last Physician Visit 06/27/23 Current Work Status Retired Preferred Name Genr Precautions Weight Bearing Status Full Weight Bearing Objective Range of Motion AROM - Lumbar flexion 90%, extension 30%, L rotation WNL with pain, R rotation WNL, R LF 80%, L LF WNL Hip - abduction , adduction WNL PROM hip IR WNL with symptom reproduction, ER WNL Strength L knee 5/5 R hip IR 5/5, ER 5/5, abduction 4+/5 L hip abduction 5/5 Trunk - upper abdominals 2-/5, lower abdominals 2+/5, Palpation R lumbar paraspinals tight and tender, R glut med tight and tender, R TFL tender, B hip adductors very tender and tight Balance & Gait SLB B 3 seconds Posture decreased lordosis Other/Pertinent Objective Special - + Fabers Assessment Assessment/Impression Pt. is a 78 y/o male who presents to PT with R hip and LBP with tightness throughout the R lumbar multifidus and gluteus medius, significant tenderness in B hip adductors due to compensation for weak glutes and an inability to stabilize his spine against leg lowering. He will benefit from treatment to decrease tension in his low back and hip while working to increase his tissue mobility and strength of his core. Treatment will consist of therex, NM re-ed and manual therapy. Primary Functional Limitations prolonged walking, lifting, stepping up Plan of Care Rehabilitation Potential Good Physical Therapy Goals SHORT TERM GOALS: (3 weeks) 1. Pt. compliant with HEP. 2. Pt. able to stabilize spine against leg lowering. CORRECTION GOALS: (6 weeks) 1. Pt. to have 5/5 hip strength to assist in lifting and climbing activities. 2. Pt. able to ascend a flight of stairs or step up on skid dip stand loader with pain less than 2/ 10. 3. Pt. able to walk 7-10K steps/day with pain less than 3/10 Coordination/Communication With Referral Source Treatment Plan/Direct Interventions Joint Mobilization,Manual Therapy,Neuromuscular Re-ed, Self-Care/Home Management, Therapeutic Exercises Frequency/Duration 2x/week 4 weeks Patient Will Be Discharged From Therapy Completion of LTG(s),Skills Plateau,Independent w/HEP, Independently Progressing Evaluation Billing Untimed Code Treatment Minutes 40 Complexity Moderate Certification Information Initial Certification Date 07/04/23 Ending Certification Date 10/02/23 Provider Signature Shows Agreement With POC & Medical Necessity Physician Signature & Date Requested Please Sign/Date Here Physician Comment/Change : Physician NPI Number #
--- NOTE | 2023-10-09 17:20 | PT.OPDN ---
[facility] Daily [facility] PT [facility] Daily Note Start: 07/04/23 09:41 Freq: Status: Active Protocol: Document 10/09/23 12:53 LSL (Rec: 10/09/23 14:09 LSL [id number]) E-signed By Majo Srinivasan, PT PT OP Daily Progress Note Visit Information Note Type Daily Note,Recert/Progress Note Visit Number 1 Insurance Authorized Visits TBD Physician Authorized Visits eval & treat Insurance Information Recert Due Date 01/07/24 Insurance Name Medicare B,Blue Cross/Blue Shield Medical Diagnosis R hip OA,s/p R LI, lumbar spondylosis, LBP Treating Diagnosis impaired gait, impaired ROM, impaired strength Referring MD Dawson Subjective Preferred Name Gene Subjective Pt. reports he had to have a lot of tests before they approved his surgery (CT scans , EKG, US, zeopatch) They did find a vessel behind my R knee that has a clot in it and they are talking about potentially doing surgery for that. Pt. reports the pain he went in for is gone, and now most of the pain is in his anterior thigh. First night I stayed in the recliner and when I went to get up in the morning it hurt all through the front of the thigh and hip . When I sit or lay flat right now it doesn't hurt. I want to be able to walk normally and be able to go a mile or a half hour. Taking narcotics for pain management about 1x/ day and then otherwise just Tylenol. Pain Comments 0-1/10 best, 8/10 worst Date of Last Physician Visit 10/03/23 Date of Next Physician Visit 10/10/23 Date of Surgery (If applicable) 10/03/23 Precautions Weight Bearing Status Full Weight Bearing Objective Other/Pertinent Objective AROM R PROM flex 20 90 abd 15 38 ext 12 NA IR 15 19 ER 12 40 MEASUREMENTS R L 6 above MP 60.5 cm 53 cm joint line 45 .75 cm 42.25 cm 6 below MP 46 cm 44 cm ankle 28 cm 28.5 cm STRENGTH - deferred GAIT - mildly antalgic with 2WW SWELLING - significant echhymosis throughout thigh BALANCE - impaired Patient Instructed in Risks/Benefits Yes Therapeutic Exercise Therapeutic Exercise Minutes (minutes) 12 Therapeutic Exercise: To Restore - Bike S10 L1 5' Functional Status - heel raise 10x - hip abd 10x - standing hip flexion 10x Manual Therapy Techniques Manual Therapy Minutes (minutes) 18 Manual Therapy Techniques decongestive STM from ankle to hip with leg elevated to decrease swelling and pain Treatment Minutes Untimed Code Treatment Minutes 30 Timed Code Treatment Minutes 30 Total Treatment Time 60 Billing Units Manual Therapy Units 1 Therapeutic Exercise Units 1 Re-Evaluation Units 1 Assessment/Impression Assessment/Impression Pt. is a returning 78 y/o male who presents one week s/p R LI with significant ecchymosis and edema throughout the L LE especially the lateral thigh. He has significant weakness in hip flexion which is to be expected given the anterior approach and the amount of swelling in his leg. His pain is well managed and he will benefit from PT using therex, NM re-ed, gait training, manual therapy and modalities to restore his function so he is able to walk on unlevel ground and walk for exercise around his property. Plan of Care Physical Therapy Goals SHORT TERM GOALS: (3 weeks) 1. Pt. able to complete independent SLR. 2. Pt. able to don/doff LE clothing independently. AUTO SERVICE REPRESENTATIVE GOALS: (6-8 weeks) 1. Pt. to have 4/5 or greater hip strength to assist in lifting and climbing activities. 2. Pt. able to ascend a flight of stairs or step up on skid rock loader with pain less than 2/ 10. 3. Pt. able to walk half a mile with pain less than 2/10. Daily Plan of Care Continue per POC Daily Plan of Care Comments Ongoing POC to consist of therex, NM re-ed, manual therapy, gait training, modalities prn Recertification Information Initial Certification Date 07/04/23 Recertification Start Date 10/09/23 Recertification Due Date 01/07/24 Reasons to Continue Skilled Therapy patient had surgical procedure - R LI with significant impairment in ability to walk, balance and lift leg Rehabilitation Potential Excellent Continued Plan of Care and Interventions therex, NM re-ed, gait training, manual therapy, modalities prn Provider Signature Shows Agreement With POC & Medical Necessity Physician Comment/Change Comment or Changes Physician NPI Number #
== END 2023-11-27 10:27 | disposition home or self-care (01) ==
PROVIDERS: PCP Physician Assistant Medical; Visit Provider Orthopaedic Surgery
DX: M16.11 Unilateral primary osteoarthritis, right hip (principal); M54.50 Low back pain, unspecified; G89.29 Other chronic pain; M47.816 Spondylosis without myelopathy or radiculopathy, lumbar region; Z96.641 Presence of right artificial hip joint; R26.9 Unspecified abnormalities of gait and mobility; R53.1 Weakness; Z51.89 Encounter for other specified aftercare
CPT/HCPCS: 97032; 97110; 97140; 97162; 97164

== ENCOUNTER 2023-12-17 08:50 | Outpatient (CLI) | payer MEDICARE, SELFPAY ==
--- OUTSIDE RECORDS SUMMARY | 2023-12-18 16:00 | XMS_ITS | Encounter Summary ---
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 Gender Identity Not on file Sexual Orientation Not on file documented as of this encounter Plan of Treatment Not on file documented as of this encounter Visit Diagnoses Not on filedocumented in this encounter Care Teams Voice Writing Reporter Relationship Specialty Start Date End Date Chester Schumacher PA-C [address] [facility] [address] PCP - General 08/29/23 Ana Brewer MD [address] [place] [id number] Assigned Heart and Vascular Provider 09/11/23 Rola Kumari DO [address] [place] [id number] Physician Cardiovascular Disease 09/18/23 documented as of this encounter
--- OUTSIDE RECORDS SUMMARY | 2023-12-18 16:00 | XMS_ITS | Encounter Summary ---
Author Organization [place] Address [address] [place] [address] Care Team Providers Care Program Director Air Talent Name Role Phone Chester Schumacher PA-C Primary Care Provider [phone] Ana Brewer MD Unavailable [phone] Rola Kumari DO Unavailable [phone] Reason for Visit * Diagnostic Imaging NM (Routine) - Authorized Specialty Diagnoses / Procedures Referred By Contac t Referred To Contact Radiology. Diagnoses Ventricular tachycardia (H) Paroxysmal ventricular tachycardia (H) Family history of ischemic heart disease Personal history of tobacco use, presenting hazards to health Procedures NM Lexiscan stress test (nuc card) Rola Kumari DO [address] [place] [id number] Phone: tel: fax: [facility] 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 Nuclear Study Quality The supplier quality images demonstrate diaphragmatic attenuation. Final image [...] The left ventricular wall motion is normal. us Rola Aida Kumari DO IMG NM ORDERABLES F inal Result documented in this encounter Visit Diagnoses Not on filedocumented in this encounter Care Teams Program Director Air Talent Relationship Specialty Start Date End Date Chester Schumacher PA-C [facility] [address] [place] [address] [place] [address] PCP - General 08/29/23 Ana Brewer MD [address] [place] [address] Assigned Heart and Vascular Provider 09/11/23 Rola Kumari DO [address] [place] [address] Physician Cardiovascular Disease 09/18/23 documented as of this encounter
--- OUTSIDE RECORDS SUMMARY | 2023-12-18 16:00 | XMS_ITS | Encounter Summary ---
Author Organization [place] Address [address] [facility] [place] [address] Care Team Providers Care Green End Man Name Role Phone Filiberto Schumachermadhurilucian BUTLER Primary Care Provider [phone] Ana Brewer MD Unavailable [phone] Rola Kumari DO Unavailable [phone] Reason for Visit * Reason Onset Date Comments Call Back 10/01/2023 Surgery clerance Encounter Details Date Type Department Care Team (Late st Contact Info) Description 10/01/2023 Telephone [facility] [address] [place] [address] Rola Kumari DO [address] [facility] [address] [place], [place] [address] Call Back (Surgery clerance) Social History Tobacco [...] on file 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 I will also recommend that he start [...] Please fax to Dr. Acosta's office fax# [phone] Action Taken: Other: cardiology Travel Screening: Not Applicable Thank you! [facility] Date of Service: documented in this encounter Plan of Treatment Not on file documented as of this encounter Visit Diagnoses Not on filedocumented in this encounter Care Teams Green End Man Relationship Specialty Start Date End Date Chester Schumacher PA-C [facility] [address] [facility] [place] [address] PCP - General 08/29/23 Ana Brewer MD [address] [place] [address] Assigned Heart and Vascular Provider 09/11/23 Rola Kumari DO [address] [place] [address] Physician Cardiovascular Disease 09/18/23 documented as of this encounter
--- OUTSIDE RECORDS SUMMARY | 2023-12-18 16:00 | XMS_ITS | Clinical Summary ---
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 Pulse 58 02/09/2010 10:47 AM COFFEE PLANTATION WORKER Temperature - - Respiratory Rate - - Oxygen Saturation - - Inhaled Oxygen Concentration - - Weight 110.2 kg (243 lb) 04/24/2008 9:23 AM COFFEE PLANTATION WORKER Height 177.8 cm (5' 10) 04/24/2008 9:23 AM COFFEE PLANTATION WORKER Body Mass Index 34.87 04/24/2008 9:23 AM COFFEE PLANTATION WORKER Plan of Treatment Health Maintenance Due Date Last Done Comments Tdap 04/26/1958 Depression screening for age 12+ 1959 BMI (ht and wt on same day) for age 18+ 04/26/1965 Hepatitis C screening for age 18-79 04/26/1965 Tetanus booster 1967 Zoster (shingles) series for age 50+ (1 of 2) 04/26/18 98 Pneumococcal series for age 65+ (1 of 1 - PCV) 013 RSV vaccine for adults or pr egnancy (1 - 1-dose 75+ series) 04/26/2022 COVID-19 vaccine series ( - 2023- season) 4 Influenza for age 65+ 10/21/2023 Care Teams Improvement Spec Relationship Specialty Start Date End Date Robby Noel MD PCP - General 03/19/08
--- OUTSIDE RECORDS SUMMARY | 2023-12-18 16:00 | XMS_ITS | Encounter Summary ---
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 us Stevo Acosta MD LAB - URINE ORDERABLES Edited Result - Final COREY PFT NON-INTERFACED (ONBASE SCANS) documented in this encounter Visit Diagnoses Not on filedocumented in this encounter Care Teams Yard Caller Relationship Specialty Start Date End Date Chester Schumacher PA-C [place] [address] [place] [address] PCP - General 7/10/24 Ana Brewer MD [address] [place] [id number] Assigned Heart and Vascular Provider 09/11/23 Rola Kumari DO [address] [place] [id number] Physician Cardiovascular Disease 09/18/23 documented as of this encounter
--- OUTSIDE RECORDS SUMMARY | 2023-12-18 16:00 | XMS_ITS | Encounter Summary ---
Author Organization [facility] Address [address] [place] [address] Care Team Providers Care Hospitality Ambassador Name Role Phone Chester Schumacher PA-C Primary Care Provider [phone] Ana Brewer MD Unavailable [phone] Rola Kumari DO Unavailable [phone] Reason for Referral * CV Cardio consult (Urgent: 3-5 Days) - Pending Review Specialty Diagnoses / Procedures Referred By Contac t Referred To Contact Cardiovascular Disease Diagnoses Ventricular tachycardia (H) Ana Brewer MD [address] [facility] [address] [place] [address] Phone: tel: fax: Referral ID Status Reason Start Date Expiration Date V isits Requested Visits Authorized [id number] Pending Review 09/18/2023 09/17/2024 3 3 Question Answer Reason for Consult: EP/Arrhythmia Scheduling Instructions: Zazzy will call you to coordinate your care as prescribed by your provider. If you don't hear from a payroll representative within 2 business days, please call [phone]. Additional Information: scheduled to undergo Rt hip replacement , Zio patch V tach , SVT and PVCs etc please evaluate and clear for surgery Comments Please be aware that coverage of these services is subject to the terms and limitations of your health insurance plan. Call member services at your health plan with any benefit or coverage questions. Zazzy will call you to coordinate your care as prescribed by your provider. If you don't hear from a payroll representative within 2 business days, please call [phone]. 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, left (H) Popliteal artery occlusion, left (H) Popliteal artery aneurysm (H) Ana Brewer MD [address] [place] [address] Phone: tel: fax: [facility] [place] [address] [place] [address] Phone: tel: fax: Referral ID Status Reason Start Date Expiration Date V isits Requested Visits Authorized [id number] Pending Review 09/18/2023 09/17/2024 3 3 Question Answer Referral Type: Vascular Surgery Preferred Location: [facility] Vascular [facility] Scheduling Instructions: Please call to schedule your [...] Referred By Contac t Referred To Contact Diagnoses Infrarenal abdominal aortic aneurysm (AAA) without rupture (H) Ectasia of artery (H) Former smoker Hyperlipidemia LDL goal <70 Bradycardia Osteoarthritis of lumbar spine, unspecified spinal osteoarthritis complication status PVC's (premature ventricular contractions) Ana Brewer MD [address] [place] [address] Phone: tel: fax: Referral ID Status Reason Start Date Expiration Date V isits Requested Visits Authorized [id number] Pending Review 08/29/2023 08/28/2024 1 1 Encounter Details Date Type Department Care Team (Latest Contact Info) Description 09/18/2023 8:00 AM CDT Office Visit [facility] [place] 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 Gender Identity Not on file Sexual Orientation [...] CDT Please see vascular surgery and EP pump installation and servicer before her upcoming hip surgery , order placed , our staff will schedule the appointments documented in this encounter Progress Notes * Shaina Sharp - 09/18/2023 8:00 AM CDT [facility] Patient is here for a [...] N/A Has homecare services and agency name: No Shaina Sharp MA * Ana Brewer MD - 09/18/2023 8:00 AM CDT [facility] VASCULAR MEDICINE PRIMARY HEALTH CARE PROVIDER: Chester Schumacher PA-C ( [facility]) , Stevo Acosta MD Follow-up visit Review [...] Disease Mother Coronary Artery Disease Father of [place] age 52 Deep Vein Thrombosis Sister VASCULAR [...] July 2023, in the scanned section of the medical center Reviewed outside labs done in September 2022 on his phone Assessment and Plan: 1. Popliteal artery occlusion, left (H24) 2. Distal Superficial Femoral artery occlusion, left (H24) 3. 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 Ventricular tachycardia (H) 5. Infrarenal abdominal aortic aneurysm (AAA) without rupture (H24) 4.2 cm on US 07/2023 [facility], last week CTA unchanged same size [...] obese weighs 235 pounds. They live in [place]. I have arranged Zio patch reviewed results [...] primary care physician Dr. 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 Expected: 09/18/2023 (Approximate), Expires: 09/17/2024 Adult Cardiology Eval Back Tender Cloth Printing Referral Referral Urgent: 3-5 Days Ventricular tachycardia (H) Expected: 09/18/2023 (Approximate), Expires: 09/17/2024 documented as of this encounter Visit Diagnoses Diagnosis 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- Primary Aneurysm of artery of lower extremity Popliteal artery occlusion, 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, left (H24) Embolism and thrombosis of unspecified artery Ventricular tachycardia (H) Paroxysmal ventricular tachycardia Infrarenal abdominal aortic aneurysm (AAA) without rupture (H24) 4.2 cm on US 07/2023 [facility] 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 july 2023 US Primary osteoarthritis of right hip Primary localized osteoarthrosis, pelvic region and thigh Former smoker Personal history of tobacco use, presenting hazards to health Hyperlipidemia LDL goal <70 Other and unspecified hyperlipidemia Osteoarthritis of lumbar spine, unspecified spinal osteoarthritis complication status documented in this encounter Care Teams Hospitality Ambassador Relationship Specialty Start Date End Date Chester Schumacher PA-C [address] [place] [address] PCP - General 08/29/23 Ana Brewer MD [address] [place] [address] Assigned Heart and Vascular Provider 09/11/23 Rola Kumari DO [address] [place] [id number] Physician Cardiovascular Disease 09/18/23 documented as of this encounter
--- OUTSIDE RECORDS SUMMARY | 2023-12-18 16:00 | XMS_ITS | Encounter Summary ---
Author Organization [facility] Address [address] [place] [address] Care Team Providers Care Project Control Analyst Name Role Phone Chester Schumacher PA-C Primary Care Provider [phone] Ana Brewer MD Unavailable [phone] Rola Kumari DO Unavailable [phone] Reason for Referral * Diagnostic Imaging NM (Routine) - Authorized Specialty Diagnoses / Procedures Referred By Arvind dalton Referred To Contact Radiology. Diagnoses Ventricular tachycardia (H) Paroxysmal ventricular tachycardia (H) Family history of ischemic heart disease Personal history of tobacco use, presenting hazards to health Procedures NM Lexiscan stress test (nuc card) Rola Kumari DO [address] [place] [address] Phone: tel: fax: [facility] [address] [place] [address] Phone: tel: Referral ID Status Reason Start Date Expiration Date V isits Requested Visits Authorized [id number] Authorized 09/21/2023 09/20/2024 5 5 Reason for Visit * Diagnostic Imaging NM (Routine) - Authorized Specialty Diagnoses / Procedures Referred By Contac krystle Referred To Contact Radiology. Diagnoses Ventricular tachycardia (H) Paroxysmal ventricular tachycardia (H) Family history of ischemic heart disease Personal history of tobacco use, presenting hazards to health Procedures NM Lexiscan stress test (nuc card) Rola Kumari DO [address] [place] [address] Phone: tel: fax: [facility] 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 Nuclear Study Quality The manager quality systems images demonstrate diaphragmatic attenuation. Final image quality [...] is normal. Rola Kumari DO IMG [place] ORDERABLES F inal Result documented in this encounter Visit Diagnoses Diagnosis [...] millicuries documented in this encounter Care Teams Project Control Analyst Relationship Specialty Start Date End Date Chester Schumacher PA-C [address] [place] [address] PCP - General 08/29/23 Ana Brewer MD [address] [place] [id number] Assigned Heart and Vascular Provider 09/11/23 Rola Kumari DO [address] [place] [id number] Physician Cardiovascular Disease 09/18/23 documented as of this encounter
--- OUTSIDE RECORDS SUMMARY | 2023-12-18 16:00 | XMS_ITS | Referral Summary ---
Author Organization [facility] Address [address] [place] [address] Care Team Providers Care Hand Printed Circuit Board Assembler Name Role Phone Filiberto Schumachermadhurilucian BUTLER Primary Care Provider [phone] Ana Brewer MD Unavailable [phone] Rola Kumari DO Unavailable [phone] Encounters Date Type Department Care Team Description 10/01/2023 Telephone [facility] Heart [facility] [address] [facility] [address] [place] [phone] Rola Kumari DO Call Back (Surgery clerance) 09/27/2023 MyC Medical Advice [facility] Heart [facility] [address] [facility] [address] [place] [phone] Rola Kumari DO 09/26/2023 Travel 09/26/2023 8:52 AM CDT - 09/26/2023 11:59 PM CDT Hospital Encounter [facility] [address] [facility] [address] [place] [address] Rola Kumari DO Discharge Disposition: Home or Self Care 09/26/2023 8:52 AM CDT - 09/26/2023 11:59 PM CDT Hospital Encounter [facility] [address] [facility] [address] [place] [address] Rola Kumari DO Discharge Disposition: Home or Self Care 09/26/2023 8:51 AM CDT Hospital Encounter [facility] [address] [facility] [address] [place] [phone] Rola Kumari DO Discharge Disposition: Home or Self Care 09/26/2023 8:50 AM CDT Hospital Encounter [facility] [address] [facility] [address] [place] [phone] Rola Kumari DO Ventricular tachycardia (H); Paroxysmal ventricular tachycardia (H); Family history of ischemic heart disease; Personal history of tobacco use, presenting hazards to health Discharge Disposition: Home or Self Care 09/21/2023 8:45 AM CDT Office Visit [facility] Heart [address] [place] [phone] Ana Brewer MD Dankle, Constance Jennifer, DO Paroxysmal ventricular tachycardia (H) (Primary Dx); Ventricular tachycardia (H); Family history of ischemic heart disease; Personal history of tobacco use, presenting hazards to health 09/20/2023 Travel 09/20/2023 3:30 PM CDT Office Visit [facility] Vascular [facility] [place] 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 july 2023 US; Primary osteoarthritis of right hip; Former smoker; Hyperlipidemia LDL goal <70; Osteoarthritis of lumbar spine, unspecified spinal osteoarthritis complication status from Last 3 Months Allergies No known active allergies Medications ASPIRIN LOW DOSE 81 MG chewable tablet Take 81 mg by mouth daily Active simvastatin (ZOCOR) 20 MG tablet Take 20 mg by mouth daily Active Multiple Vitamin (MULTIVITAMIN ADULT PO) Take by mouth daily Active metoprolol succinate ER (TOPROL XL) 25 MG 24 hr tabletIndication s:Ventricular tachycardia (H),Family history of ischemic heart disease [...] on file 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 Nuclear Study Quality The quality checker images demonstrate diaphragmatic attenuation. Final image quality [...] wall motion is normal. Rola Kumari DO [facility] ORDERABLES F inal Result * ZIO PATCH 8-14 DAYS (additional cost [...] were reported. Ana Brewer MD [facility] CARDIAC SERVICES ORDERABLES Final Result * Lipid panel reflex to direct LDL [...] ??Greater than or equal to 220 mg/dL us Ana Brewer MD LAB - BLOOD ORDERABL ES Final Result [facility] [address] [facility], [address] [place] [address], [facility] * (ABNORMAL) Comprehensive metabolic panel (08/31/2023 [...] 11:41 PM CDT [facility] Comment:eGFR calculated us2020 CKD-EPI equation. Calcium 9.4 8.8 - 10.2 [...] CDT Ana Brewer MD LAB - BLOOD ORDERABL ES Final Result [facility] [address] [facility] [address] [facility], [address] [place] [address] from Last 3 Months or Most Recently Relevant to Health Maintenance Insurance [facility] MEDICARE ADVANTAGE [facility] MEDICARE ADVANTAGE Care Teams Hand Printed Circuit Board Assembler Relationship Specialty Start Date End Date Chester Schumacher PA-C [facility] [address] [facility] [place] [address] PCP - General 08/29/23 Ana Brewer MD [address] [place] [id number] Assigned Heart and Vascular Provider 09/11/23 Rola Kumari DO [address] [place] [address] Physician Cardiovascular Disease 09/18/23
--- OUTSIDE RECORDS SUMMARY | 2023-12-18 16:00 | XMS_ITS | Encounter Summary ---
Author Name [facility] Organization [facility] Address [address] [place] [address] Care Team Providers Care Aids Counselor Name Role Phone LUIS WADE Primary Care Provider Unava ilable Insurance Providers: All historical and current Section Date Range: From patient's date of to the date document was created. This section includes the names of all active insurance providers for the patient. Insurance Provider Type of Coverage Plan Name Start of Policy Coverage End of Policy Coverage Group Number Member ID Insurance Provider's Telephone Number Policy Molina's Name Patient's Relationship to Policy Molina MEDICARE (WNR) MEDICARE (M) PART A Apr 19, 2012 PART A [id number] [phone] TOSONY MUHAMMAD PATIENT MEDICARE (WNR) MEDICARE (M) PART B Apr 19, 2012 PART B [id number] [phone] TOUSIISAAC SONY Shook PATIENT Selected Encounter This section includes the information on record at MD for the Encounter. Date/Time Encounter Type Encounter Description Reason Provider Source Nov 15, 2023 02:00 PM HEARING AID REPAIR/MODIFYIN G AUDIOLOGY ICD-10-CM H90.3 Sensorineural hearing loss, bilateral ANDENAS GAIL TERRELL IHJose Encounter Template Text not used by MD Assessments - Encounter Diagnoses This section includes the primary and secondary diagnoses documented for the Encounter. Date/Time Primary/Secondary Diagnosis Diagnosis Name Provider Source Nov 15, 2023 03:26 PM PRIMARY Sensorineural hearing loss, bilateral JERALD WILEY [facility] Nov 15, 2023 03:26 PM SECONDARY Encounter for fitting and adjustment of hearing aid JERALD WILEY [facility] Nov 15, 2023 03:26 PM SECONDARY Tinnitus, bilateral JERALD WILEY [facility] Plan of Treatment: Future Appointments (+ 6 months) and Future Tests (+/- 45 days) The Plan of Treatment section includes future care activities for the patient from all MD treatmentfacilshoals hospital. This section includes future appointments and future orders which are active, pending or scheduled. Future Appointments This section includes appointments that were scheduled to occur 6 months from the date of the Encounter, up to a maximum of 20 appointments. The data comes from all [facility] facilities. Appointment Date/Time Appointment Type Appointme nt Facility Name Jan 01, 2024 09:30 AM AMBULATORY - NONE [facility] Social History: Smoking Status (Most current) and Tobacco Use (All prior to encounter date) This section includes the most current, and the historical, smoking and tobacco- related health factors from the MD facility where the Encounter took place. Current Smoking Status This section includes the most current smoking, or tobacco-related health factor, from the MD facility where the Encounter took place. Date/Time Current Smoking Status Comment Facil ity Dec 29, 2021 11:34 AM VA-TOBACCO FORMER USER [facility] Tobacco Use History This section includes a history of the smoking, or tobacco-related health factors, that were collected on or before the date of the Encounter. The data comes from the MD facility where the Encounter took place. Date/Time Smoking Status/Tobacco Use Comment F acility Dec 29, 2021 11:34 AM VA-TOBACCO QUIT 15 YRS OR MORE [facility] Encounter Notes: All associated encounter notes This section contains the clinical notes associated to the Encounter. Date/Time Encounter Note(s) Provider Source Nov 15, 2023 03:14 PM AUDIOLOGY NOTE: LOCAL TITLE: AUDIOLOGY CLINIC NOTE STANDARD TITLE: AUDIOLOGY NOTE DATE OF NOTE: NOV 15, 2023@15:14 ENTRY DATE: NOV 15, 2023@15:15:16 AUTHOR: MILLY WILEY EXP COSIGNER: NEHEMIAS ODONNELL URGENCY: STATUS: COMPLETED AUDIOLOGY CLINIC NOTE Has ADDENDA DIAGNOSIS Encounter for fitting and Adjustment of Hearing Aids Sensorineural Hearing Loss, Bilateral TINNITUS-BILIATERAL Reason for Visit: Hearing Aid Service Location of Visit(Room Number):2S-109 was seen for Hearing Aid Service/Repair: 30 minute Appointment Otoscopy: Free of Excessive Cerumen, Normal anatomy bilaterally DIAGNOSIS History: Patient seen for a hearing aid service/hearing aid check Make:SIGNIA Model: PURE CHARGE GO 7X ALPESH-R Serial Number:[id number] Dome/Mold: CUSTOM EARMOLDS The following Hearing aid problem(s) were presented Right Hearing Aid:EARMOLDS FALL OUT, CLEAN AND CHECK Left Hearing Aid:SAME ABOVE 2ND SET: RESOUND LINX2 TS 61 MINIRIC-312 R/L:6163/6162-SMALL POWER DOMES-AIDS ARE WEAK AND FADE OUT INTERMITTANTLY Action: Hearing Aids were cleaned and checked. A listening check revealed good sound quality: REPLACED WAX GUARDS AND CLEARED VENTS Problem will require repair by window systems administrator and both Resound aid(s) were mailed to window systems administrator today. Device can be programmed/ mailed to Miranda once repaired. ORDERED BOTH EARMOLDS WITH CANAL LOCKS-MAIL OUT was counseled using a curriculum on the cleaning,care and use of hearing aids. Plan: Vet will contact call center as needed for follow up Patient is in agreement with this plan. State [employer] Director:MAIL REPAIRED AIDS AND NEW EARMOLDS TO WHEN RECEIVED-HE WAS SHOWN HOW TO CHANGE OUT RECEIVERS /gage/ MILLY WILEY AUDIO TECH Signed: 11/15/2023 15:26 /gage/ BASHIR GREENE STAFF SPECIAL PROCEDURES NURSE Cosigned: 11/16/2023 16:38 11/26/2023 ADDENDUM STATUS: COMPLETED RECEIVED AND CERTIFIED BOTH SIGNIA EARMOLDS RECEIVERS MAILED TO AT THE ADDRESS ON FILE /keara WILEY AUDIO TECH Signed: 11/26/2023 09:16 /gage/ Bashir LONG, [facility] SPECIAL PROCEDURES NURSE Cosigned: 11/26/2023 09:25 11/29/2023 ADDENDUM STATUS: COMPLETED RECEIVED AND CERTIFIED BOTH REPAIRED RESOUND LINX2 TS 61 MINIRIC AIDS SETTINGS RESTORED BY FACTORY AND AIDS MAILED TO AT THE ADDRESS ON FILE /gage/ MILLY WILEY AUDIO TECH Signed: 11/29/2023 13:31 /gage/ BASHIR GREENE STAFF SPECIAL PROCEDURES NURSE Cosigned: 11/29/2023 14:44 MILLY WILEY [facility]
--- OUTSIDE RECORDS SUMMARY | 2023-12-18 16:00 | XMS_ITS | Encounter Summary ---
Author Organization [place] Address [address] [place] [address] Care Team Providers Care Roving Inspector Name Role Phone Chester Schumacher PA-C Primary Care Provider [phone] Ana Brewer MD Unavailable [phone] Rola Kumari DO Unavailable [phone] Reason for Referral * Diagnostic Imaging NM (Routine) - Authorized Specialty Diagnoses / Procedures Referred By Arvind dalton Referred To Contact Radiology. Diagnoses Ventricular tachycardia (H) Paroxysmal ventricular tachycardia (H) Family history of ischemic heart disease Personal history of tobacco use, presenting hazards to health Procedures NM Lexiscan stress test (nuc card) Rola Kumari DO [address] [place] [address] Phone: tel: fax: [facility] [address] [place] [address] Phone: tel: Referral ID Status Reason Start Date Expiration Date V isits Requested Visits Authorized [id number] Authorized 09/21/2023 09/20/2024 5 5 Reason for Visit * Reason Comments Tachycardia * CV Cardio consult (Urgent: 3-5 Days) - Pending Review Specialty Diagnoses / Procedures Referred By Arvind dalton Referred To Contact Cardiovascular Disease Diagnoses Ventricular tachycardia (H) Ana Brewer MD [address] [place] [address] Phone: tel: fax: Referral ID Status Reason Start Date Expiration Date V isits Requested Visits Authorized [id number] Pending Review 09/18/2023 09/17/2024 3 3 Encounter Details Date Type Department Care Team (Late st Contact Info) Description 09/21/2023 8:45 AM CDT Office Visit [facility] [address] [place] [phone] Ana Brewer MD [address] [place] [id number] Rola Kumari DO [address] [place] [id number] Paroxysmal ventricular tachycardia (H) (Primary Dx); Ventricular [...] on file 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 I will also recommend that he start [...] test Prescription drug management Provider Link to [facility] Help Grid The level of medical decision [...] Disease Mother Coronary Artery Disease Father of [place] age 52 Deep Vein Thrombosis Sister SOCIAL [...] INR 0.94 04/01/2006 CC Ana Brewer MD [address] [place] [address] documented in this encounter Plan of Treatment [...] rest on 09/26/2023. Nuclear Study Quality The water quality control engineer images demonstrate diaphragmatic attenuation. Final image [...] wall motion is normal. Rola Kumari DO IM NM ORDERABLES F inal Result documented in [...] health documented in this encounter Care Teams Roving Inspector Relationship Specialty Start Date End Date Chester Schumacher PA-C [address] [place] [address] PCP - General 08/29/23 Ana Brewer MD [address] [place] [id number] Assigned Heart and Vascular Provider 09/11/23 Rola Kumari DO [address] [place] [address] Physician Cardiovascular Disease 09/18/23 documented as of this encounter
--- OUTSIDE RECORDS SUMMARY | 2023-12-18 16:00 | XMS_ITS | Continuity of Care Document ---
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 Diagnosis: ICD-10-CM Z00.00 Encntr for general adult medical exam w/o abnormal findings Active Diagnosis [facility] Medications Combined list of outpatient medications [...] BY INHALATI ON EVERY 6 HOURS NEEDED RESPIR ATORY (INHAL ATION) ACTIVE ROSEMARIE,RHO NDA I 2020 [facility] ASPIRIN 81MG TAB,CHEWABL E CHEW ONE TABLET BY MOUTH EVERY DAY ORAL ACTIVE [place]ARIE,RHO NDA I 2020 [facility] CALCIUM CARBONATE TAB TAKE WITH VITAMIN D 400UNIT BY MOUTH EVERY DAY ORAL ACTIVE ROSEMARIE,RHO NDA I 2020 [facility] CRANBERRY EXTRACT CAP/TAB TAKE 1 CAPSULE BY MOUTH EVERY DAY ORAL ACTIVE ROSEMARIE,RHO NDA I 2020 [facility] MULTIVITAMI NS CAP/TAB TAKE ONE TABLET BY MOUTH EVERY DAY ORAL ACTIVE ROSEMARIE,RHO NDA I 2020 [facility] SILDENAFIL CITRATE 100MG TAB TAKE ONE TABLET BY MOUTH EVERY DAY NEEDED ORAL ACTIVE ROSEMARIE,RHO NDA I 2020 [facility] SIMVASTATIN 40MG TAB TAKE ONE-HALF TABLET BY MOUTH AT BEDTIME ORAL ACTIVE ROSEMARIE,RHO NDA I 2020 [facility] Immunizations Combined list of available immunizations from the Department of Defense and Veterans Affairs facilities. 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 Status Comments Source COVID-19 (beModel), MRNA, LNP-S, PF, JAVIER-SUCROSE, 30 MCG/0.3 ML (AGES 12+ YEARS) 1 2022 GEBREKIRSTOS, ABDIAS E RIGHT DELTO ID [id number] complet ed [facility] INFLUENZA, HIGH-DOSE, QUADRIVALENT 2022 GEBREKIRSTOS, ABDIAS E RIGHT DELTO ID [id number] 197 complet ed [facility] COVID-19 (PFIZER), MRNA, LNP-S, BIVALENT BOOSTER, PF, 30 MCG/0.3 ML DOSE 1 2021 300 complet ed [facility] INFLUENZA, UNSPECIFIED FORMULATION 2021 88 complet ed [facility] COVID-19 (PFIZER), MRNA, LNP-S, PF, 30 MCG/0.3 ML DOSE, JAVIER-SUCROSE (AGES 12+ YEARS) 2 2021 217 complet ed [facility] COVID-19 (PFIZER), MRNA, LNP-S, PF, 30 MCG/0.3 ML DOSE 1 2020 208 complet ed [facility] ZOSTER RECOMBINANT 2 2020 187 complet ed [facility] ZOSTER RECOMBINANT 1 2020 187 complet ed [facility] INFLUENZA, UNSPECIFIED FORMULATION 2019 88 complet ed [facility] ZOSTER RECOMBINANT 1 2018 187 complet ed [facility] PNEUMOCOCCAL POLYSACCHARID E PPV23 2017 33 complet ed [facility] PNEUMOCOCCAL CONJUGATE PCV 13 2015 133 complet ed [facility] TD(ADULT) UNSPECIFIED FORMULATION 2015 139 complet ed [facility] Vital Signs Combined list of inpatient and outpatient Vital Signs from Department of Defense and Veterans Affairs, ranging from 12 months to all on record, depending upon the facility. Vital Sign Value Date Comments Source SYSTOLIC BLOOD PRESSURE 124 12/27/2022 13:15:13 [facility] DIASTOLIC BLOOD PRESSURE 85 12/27/2022 13:15:13 [facility] PULSE OXIMETRY 93% 12/27/2022 13:15:13 [facility] WEIGHT 244.6 12/27/2022 13:15:13 [facility] BMI 36kg/m2 12/27/2022 13:15:13 [facility] PAIN 0 12/27/2022 13:15:13 [facility] HEIGHT 69 12/27/2022 13:15:13 [facility] TEMPERATURE 97.5 12/27/2022 13:15:13 [facility] PULSE 70 12/27/2022 13:15:13 [facility] RESPIRATION 14 12/27/2022 13:15:13 [facility] Encounters Combined list of: 1) Encounters from Department of Veterans Affairs facilities going back up to thelast 18 months. 2) Encounters from the Department of [facility] facilities going back up to 280 months. Location Location Details Encounter Type Encounter Number Reason For Visit Attending Provider ADM Date DC Date Status Disposition Source NANETTE FRIEDMAN ADMN SARSCOV2 VACC 1 [place]SE [id number] Diagnos is: ICD-10- CM Z00.00 Encntr for general adult medical exam w/o abnorma l finding s
NALLUSAMY, DKUMATHI 12/27 [facility] [place] [facility] HEARING AID REPAIR/MOD IFYING [id number] Diagnos is: ICD-10- CM H90.3 Sensori neural hearing loss, bilater al
ANDSAQIB ROSENBERG RSTEN M 11/14 [place] [facility] Social History Combined list of available smoking, tobacco, and other social history from Department of Defense and Veterans Affairs facilities. Social History Type Response Date Comment Sourc e Tobacco smoking status NHIS [facility] FORMER USER 12/27/2022 [facility] of [facility] OR MORE 12/27/2022 NANETTE FRIEDMAN History of tobacco use [facility] FORMER USER 12/29/2021 [facility] History of tobacco use [facility]-TO[facility]CO FORMER USER 10/19/2020 NANETTE FRIEDMAN Plan of Care List of future care activities from Department of Veterans [facility] facilities. Additional future care activities may be listed in the Assessment and Plan section. Date/Time Care Activity Care Activity Detail Facili ty 01/01/2024 AMBULATORY - NONE AMBULATORY - NONE ANGEL FRIEDMAN
--- OUTSIDE RECORDS SUMMARY | 2023-12-18 16:00 | XMS_ITS | Encounter Summary ---
Author Organization [place] Address [address] [place] [address] Care Team Providers Care Direct Support Staff Name Role Phone Chester Schumacher PA-C Primary Care Provider [phone] Ana Brewer MD Unavailable [phone] Rola Kumari DO Unavailable [phone] Reason for Visit * Diagnostic Imaging NM (Routine) - Authorized Specialty Diagnoses / Procedures Referred By Contac t Referred To Contact Radiology. Diagnoses Ventricular tachycardia (H) Paroxysmal ventricular tachycardia (H) Family history of ischemic heart disease Personal history of tobacco use, presenting hazards to health Procedures NM Lexiscan stress test (nuc card) Rola Kumari DO [address] [place] [address] Phone: tel: fax: [facility] 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 Nuclear Study Quality The quality assurance assessor images demonstrate diaphragmatic attenuation. Final image quality [...] on filedocumented in this encounter Care Teams Direct Support Staff Relationship Specialty Start Date End Date Chester Schumacher PA-C [facility] [address] [place] [address] [place] [address] PCP - General 08/29/23 Ana Brewer MD [address] [place] [address] Assigned Heart and Vascular Provider 09/11/23 Rola Kumari DO [address] [place] [address] Physician Cardiovascular Disease 09/18/23 documented as of this encounter
--- OUTSIDE RECORDS SUMMARY | 2023-12-18 16:00 | XMS_ITS | Encounter Summary ---
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
--- OUTSIDE RECORDS SUMMARY | 2023-12-18 16:00 | XMS_ITS | Clinical Summary ---
Author Organization [place] Address [address] [place] [address] Care Team Providers Care Rabbet Operator Name Role Phone Filiberto Schumachermadhurilucian BUTLER Primary Care Provider [phone] Ana Brewer MD Unavailable + [phone] Rola Kumari DO Unavailable [phone] Allergies No known active allergies Medications ASPIRIN [...] Type Department Care Team Description 10/01/2023 Telephone [facility] [address] [place] [address] Rola Kumari DO Call Back (Surgery clerance) 09/27/2023 MyC Medical Advice [facility] [address] [facility] [address] [place] [address] Rola Kumari DO 09/26/2023 8:52 AM CDT - 09/26/2023 11:59 PM CDT Hospital Encounter [facility] [address] [place] [phone] Rola Kumari DO Discharge Disposition: Home or Self Care 09/26/2023 8:52 AM CDT - 09/26/2023 11:59 PM CDT Hospital Encounter [facility] [address] [place] [phone] Rola Kumari DO Discharge Disposition: Home or Self Care 09/26/2023 8:51 AM CDT Hospital Encounter [facility] [address] [place] [phone] Rola Kumari DO Discharge Disposition: Home or Self Care 09/26/2023 8:50 AM CDT Hospital Encounter [facility] [address] [place] [phone] Rola Kumari DO Ventricular tachycardia (H); Paroxysmal ventricular tachycardia (H); Family history of ischemic heart disease; Personal history of tobacco use, presenting hazards to health Discharge Disposition: Home or Self Care 09/26/2023 Travel 09/21/2023 8:45 AM CDT Office Visit [facility] [address] [place] [phone] Ana Brewer MD Dankle, Constance Jennifer, DO Paroxysmal ventricular tachycardia (H) (Primary Dx); Ventricular tachycardia (H); Family history of ischemic heart disease; Personal history of tobacco use, presenting hazards to health 09/20/2023 3:30 PM CDT Office Visit [facility] [place] [address] [facility] 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); Popliteal artery occlusion, left (H); Distal Superficial Femoral artery occlusion, left (H24); Ventricular tachycardia (H); Infrarenal abdominal aortic aneurysm (AAA) without rupture (H24) 4.2 cm on US 07/2023 [facility]; 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 july 2023 US; Primary osteoarthritis of right hip; Former smoker; Hyperlipidemia LDL goal <70; Osteoarthritis of lumbar spine, unspecified spinal osteoarthritis complication status 09/18/2023 Travel from Last 3 Months Family History Medical History Relation Comments Coronary Artery Disease Father of [place] age 52 Peripheral Vascular Disease Mother Deep [...] on file 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 Nuclear Study Quality The quality process auditor images demonstrate diaphragmatic attenuation. Final image [...] DO IMG NM ORDERABLES F inal Result * ZIO PATCH [...] BLOOD ORDERABL ES Final Result [facility] [address] [facility], [address] [place] [phone] * (ABNORMAL) Comprehensive metabolic panel (08/31/2023 [...] 8:58 AM CDT 08/31/2023 8:58 AM CDT us Ana Brewer MD LAB - BLOOD ORDERABL ES Final Result [facility] [place] [facility] [address] [facility], [address] [place] [phone], [facility] from Last 3 Months or Most Recently Relevant to Health Maintenance Insurance [facility] MEDICARE ADVANTAGE [facility] MEDICARE ADVANTAGE Care Teams Rabbet Operator Relationship Specialty Start Date End Date Chester Schumacher PA-C [facility] [address] [place] [address] PCP - General 08/29/23 Ana Brewer MD [address] [place] [address] Assigned Heart and Vascular Provider 09/11/23 Rola Kumari DO [address] [place] [address] Physician Cardiovascular Disease 09/18/23
--- OUTSIDE RECORDS SUMMARY | 2023-12-18 16:00 | XMS_ITS | Encounter Summary ---
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
--- OUTSIDE RECORDS SUMMARY | 2023-12-18 16:00 | XMS_ITS | Encounter Summary ---
Author Organization [place] Address [address] [place] [address] Care Team Providers Care Wire Preparation Machine Tender Name Role Phone Chester Schumacher PA-C Primary Care Provider [phone] Ana Brewer MD Unavailable [phone] Rola Kumari DO Unavailable [phone] Reason for Referral * Diagnostic Imaging Ultrasound (Routine) - Pending Review Specialty Diagnoses / Procedures Referred By Contac t Referred To Contact Radiology. Diagnoses Popliteal artery aneurysm (H) Procedures US Lower Extremity Arterial Duplex Right Pablo Pierce MD [address] [place] [address] Phone: tel: fax: Referral ID Status Reason Start Date Expiration Date V isits Requested Visits Authorized [id number] Pending Review 09/21/2023 09/20/2024 1 1 * Diagnostic Imaging Ultrasound (Routine) - Pending Review Specialty Diagnoses / Procedures Referred By Contac t Referred To Contact Radiology. Diagnoses Infrarenal abdominal aortic aneurysm (AAA) without rupture (H) Ectasia of artery (H) Procedures US Aorta/Ivc/Iliac Duplex Complete Pablo Pierce MD [address] [place] [address] Phone: tel: fax: Referral ID Status Reason Start Date Expiration Date V isits Requested Visits Authorized [id number] Pending Review 09/21/2023 09/20/2024 1 1 Reason [...] Popliteal artery aneurysm (H) Ana Brewer MD [address] [place] [address] Phone: tel: fax: [facility] [place] [address] [place] [address] Phone: tel: fax: Referral ID Status Reason Start Date Expiration Date V isits Requested Visits Authorized [id number] Pending Review 09/18/2023 09/17/2024 3 3 Encounter Details Date Type Department Care Team (Late st Contact Info) Description 09/20/2023 3:30 PM CDT Office Visit [facility] 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 [facility] Rodri Kirkland has been followed by Dr. Brewer for his multiple vascular issues. History of 4.2 cm infrarenal AAA. -- 09/05/2023 arterial duplex: Right popliteal measures 0.9 cm with some mild luminal irregularity. Left distal SFA occluded as is popliteal artery. --04/24/2008 CTA: Occluded left popliteal artery with three-vessel runoff. Noted 1.1 cm thrombosed popliteal aneurysm. Hytask-KSQ-wprcez renal arteries widely patent. No right popliteal aneurysm. Mild disease within the right FUR SEWER. Three- vessel runoff. --CTA: Stable 4.2 cm [...] descending aorta. No significant disease within the xqsbtd-BUZ-yrusu arteries except for mild plaque. 4.2 cm [...] Pierce MD This note was created using [employer] voice recognition software which may result in sugar house supervisor errors. 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 Expected: 09/20/2024 (Approximate), Expires: 09/20/2024 documented as of this encounter Visit Diagnoses Diagnosis Infrarenal abdominal aortic aneurysm (AAA) without rupture (H24) 4.2 cm on US 07/2023 [facility] 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 july 2023 US Distal Superficial Femoral artery occlusion, left (H24) Embolism and thrombosis of unspecified artery Popliteal artery occlusion, 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
--- OUTSIDE RECORDS SUMMARY | 2023-12-18 16:00 | XMS_ITS | Encounter Summary ---
Author Organization [place] Address [address] [place] [address] Care Team Providers Care Community Manager Name Role Phone Chester Schumacher PA-C Primary Care Provider [phone] Ana Brewer MD Unavailable [phone] Rola Kumari DO Unavailable [phone] Reason for Visit * Diagnostic Imaging NM (Routine) - Authorized Specialty Diagnoses / Procedures Referred By Contac t Referred To Contact Radiology. Diagnoses Ventricular tachycardia (H) Paroxysmal ventricular tachycardia (H) Family history of ischemic heart disease Personal history of tobacco use, presenting hazards to health Procedures NM Lexiscan stress test (nuc card) Rola Kumari DO [address] [place] [address] Phone: tel: fax: [facility] 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 Nuclear Study Quality The plant quality manager images demonstrate diaphragmatic attenuation. Final image quality [...] on filedocumented in this encounter Care Teams Community Manager Relationship Specialty Start Date End Date Chester Schumacher PA-C [place] [address] [place] [address] PCP - General 08/29/23 Ana Brewer MD [address] [place] [address] Assigned Heart and Vascular Provider 09/11/23 Rola Kumari DO [address] [place] [address] Physician Cardiovascular Disease 09/18/23 documented as of this encounter
--- OUTSIDE RECORDS SUMMARY | 2023-12-18 16:00 | XMS_ITS | Encounter Summary ---
Author Organization [place] Address [address] [place] [address] Care Team Providers Care Plating Department Helper Name Role Phone Chester Schumacher PA-C Primary Care Provider [phone] Ana Brewer MD Unavailable [phone] Rola Kumari DO Unavailable [phone] Encounter Details Date Type Department Care Team (Late st Contact Info) Description 09/27/2023 [facility] Medical Advice [facility] [place] [address] [place] [address] Rola Kumari DO [address] [facility] [address] [place], [place] [id number] Social History Tobacco Use Types Packs/Day Years [...] on file 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 Gender Identity Not on file Sexual Orientation Not on file documented as of this encounter Plan of Treatment Not on file documented as of this encounter Visit Diagnoses Not on filedocumented in this encounter Care Teams Plating Department Helper Relationship Specialty Start Date End Date Chester Schumacher PA-C [facility] [address] [place] [address] [address] [place] [address] PCP - General 08/29/23 Ana Brewer MD [address] [place] [id number] Assigned Heart and Vascular Provider 09/11/23 Rola Kumari DO [address] [place] [address] Physician Cardiovascular Disease 09/18/23 documented as of this encounter
--- OUTSIDE RECORDS SUMMARY | 2023-12-18 16:00 | XMS_ITS | Encounter Summary ---
Author Organization [place] Address [address] [facility] [place] [address] Care Team Providers Care Head Up Operator Name Role Phone Filiberto Schumachermadhurilucian BUTLER Primary Care Provider [phone] Ana Brewer MD Unavailable [phone] Reason for Referral * CV Testing (Routine) - Pending Review Specialty Diagnoses / Procedures Referred By Arvind dalton Referred To Contact Diagnoses Bradycardia PVC's (premature ventricular contractions) Procedures ZIO PATCH 8-14 DAYS (additional cost to patient) Ana Brewer MD [address] [place] [address] Phone: tel: fax: Referral ID Status Reason Start Date Expiration Date V isits Requested Visits Authorized [id number] Pending Review 09/06/2023 09/05/2024 1 1 Encounter Details Date Type Department Care Team (Late st Contact Info) Description 09/06/2023 Orders Only [facility] [address] [place] [address] Ana Brewer MD [address] [place] [address] Bradycardia (Primary Dx); PVC's (premature ventricular contractions) [...] on file 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 us Ana Brewer MD CV CARDIAC SERVICES ORDERABLES Final Result documented in this encounter Visit Diagnoses Diagnosis Bradycardia Other specified cardiac dysrhythmias PVC's (premature ventricular contractions) Other premature beats Bradycardia- Primary Other specified cardiac dysrhythmias PVC's (premature ventricular contractions) Other premature beats documented in this encounter Care Teams Head Up Operator Relationship Specialty Start Date End Date Chester Schumacher PA-C [facility] [address] [facility] [place] [address] PCP - General 08/29/23 Ana Brewer MD [address] [place] [address] Assigned Heart and Vascular Provider 09/11/23 documented as of this encounter
--- OUTSIDE RECORDS SUMMARY | 2023-12-18 16:01 | XMS_ITS | Clinical Summary ---
Author Organization [facility] Address [address] [place] [address] Care Team Providers Care Senior Manager Creative Services Name Role Phone Unavailable Primary Care Provider [...] for each transition of care or referral. [facility] Social History Tobacco Use Types Packs/Day [...] Pneumococcal 65+ Yrs (1 - PCV) 04/26/2012 RSV (1 - 1-dose 75+ series) 04/26/2022 COVID-19 Vaccine (2023-2 5 season) 2023 Influenza (#1) 2023 HepA Aged Out No [...] on patient's age to complete this topic Infant RSV Aged Out No longer eligi ble based on patient's age to complete this topic MCV4 Aged Out No longer eligi ble based on patient's age to complete this topic
== END 2023-12-17 08:51 | disposition home or self-care (01) ==
LOC: NFLDREF 12-18 15:55
PROVIDERS: PCP Physician Assistant Medical; Referring Provider Physician Assistant Medical; Visit Provider Physician Assistant Medical
DX: Z00.00 Encounter for general adult medical examination without abnormal findings (principal); E78.2 Mixed hyperlipidemia; Z12.5 Encounter for screening for malignant neoplasm of prostate; I10 Essential (primary) hypertension; I71.43 Infrarenal abdominal aortic aneurysm, without rupture
CPT/HCPCS: 80061; 84450; 84460; G0103

== ENCOUNTER 2024-12-22 07:30 | Outpatient (CLI) | payer MEDICARE, SELFPAY | END 2024-12-22 07:31 | disposition home or self-care (01) | LOC: NFLDREF 12-24 10:56 | PROVIDERS: PCP Physician Assistant Medical; Referring Provider Physician Assistant Medical; Visit Provider Physician Assistant Medical | DX: I10 Essential (primary) hypertension (principal); E78.2 Mixed hyperlipidemia; Z12.5 Encounter for screening for malignant neoplasm of prostate | CPT/HCPCS: 80053; 80061; 84443; G0103 ==

== ENCOUNTER 2025-01-07 08:49 | Outpatient (CLI) | payer MEDICARE, SELFPAY ==
--- NOTE | 2025-01-07 09:00 | CRLHL7_ITS ---
For Patients: As a result of the Century Cures Act, medical imaging exams and procedure reports are released immediately into your electronic medical record. You may view this report before your referring provider. If you have questions, please contact your health care provider. Indication: CHRONIC SINUSITIS, FOUL SMELL Technique: Performed without IV contrast Comparison: Brain MRI 11/01/2020 Findings: Frontal sinuses: Complete opacification of the left frontal sinus. Minimal mucosal thickening in the right frontal sinus. Ethmoid sinuses: Minimal mucosal thickening within the ethmoid sinuses. Maxillary sinuses: Mucosal thickening and fluid within the right maxillary sinus. Mucosal thickening within the left maxillary sinus. Chronic partially calcified soft tissue density within the left maxillary sinus measures 2.9 cm. Sinus drainage pathways are at least partially obstructed. Sphenoid sinuses: Mucosal thickening in both sphenoid sinuses with partial obstruction of the sphenoethmoidal recesses. Nasal Cavity: Joanne bullosa both middle turbinates. Slight curvature of the nasal septum. Atrophy of the left inferior turbinate mucosa. Cortical atrophy noted. Dental implants. Impression: 1. Bilateral sinus disease with chronic calcified 2.9 cm soft tissue density within the medial left maxillary sinus extending into the nasal cavity. 2. At least partial obstruction of the sinus drainage pathways. Please note that all CT scans at this facility use dose modulation, iterative reconstruction, and/or weight-based dosing when appropriate to reduce radiation dose to as low as reasonably achievable. Dictated by Kenney Mccall MD @ 01/07/2025 11:17:19 AM (Electronically Signed)
== END 2025-01-07 08:50 | disposition home or self-care (01) ==
LOC: CT 08:50
PROVIDERS: PCP Physician Assistant Medical; Visit Provider Otolaryngology
DX: J32.9 Chronic sinusitis, unspecified (principal); J32.0 Chronic maxillary sinusitis; J34.89 Other specified disorders of nose and nasal sinuses
CPT/HCPCS: 70486

== ENCOUNTER 2025-02-02 07:46 | Outpatient (CLI) | payer MEDICARE, SELFPAY ==
--- NOTE | 2025-02-02 08:00 | CRLHL7_ITS ---
For Patients: As a result of the Cures Act, medical imaging exams and procedure reports are released immediately into your electronic medical record. You may view this report before your referring provider. If you have questions, please contact your health care provider. Indication: Chronic sinusitis Technique: Performed without IV contrast Comparison: None available Findings: Frontal sinuses: Complete opacification of the left frontal sinus. Clear right frontal sinus. Ethmoid sinuses: Mild mucosal thickening in the ethmoid sinuses, [id number]. Maxillary sinuses: Overall similar appearance of the left maxillary sinus with an ovoid coarsely calcified nodular structure present along with mucosal thickening and fluid. Dental implants bilaterally. No evidence of periodontal abscess. Mild mucosal thickening within the right maxillary sinus with associated fluid. The maxillary sinus drainage pathways are similar. Sphenoid sinuses: Mild mucosal thickening is present bilaterally. Partial obstruction of the sphenoethmoidal recesses. Nasal Cavity: Similar appearance of the nasal cavity with mucosal atrophy, temo bullosa and mild curvature of the septum. No polyp. The left maxillary lesion extends into the left side of the nasal cavity. Generalized cortical atrophy. Orbits clear. Impression: 1. Overall, no significant interval change in the chronic inflammatory changes within the left maxillary sinus with associated dystrophic calcifications. 2. Milder sinus disease elsewhere is unchanged as well. Please note that all CT scans at this facility use dose modulation, iterative reconstruction, and/or weight-based dosing when appropriate to reduce radiation dose to as low as reasonably achievable. Dictated by Kenney Mccall MD @ 02/02/2025 10:34:34 AM (Electronically Signed)
== END 2025-02-02 07:47 | disposition home or self-care (01) ==
LOC: CT 07:47
PROVIDERS: PCP Physician Assistant Medical; Visit Provider Otolaryngology
DX: J32.0 Chronic maxillary sinusitis (principal); J32.1 Chronic frontal sinusitis; J32.8 Other chronic sinusitis; K08.89 Other specified disorders of teeth and supporting structures; R41.89 Other symptoms and signs involving cognitive functions and awareness
CPT/HCPCS: 70486